=== PATIENT | female | born 1970 | race Caucasian/White ===

== ENCOUNTER 2016-10-23 21:33 | Inpatient (IN) ==
[2016-10-23 22:36] LABS: MANUAL DIFF NEEDED? NO
[2016-10-23 22:46] LABS: BASO% 0.4 % (0.0-0.8); EOS# 0.48 X1000 (0.0-0.7); EOS% 5.1 % (0.0-10.0); HEMATOCRIT 25.5 % (37.0-47.0); HEMOGLOBIN 8.5 g/dL (12.0-16.0); IMM GRAN# 0.06 X1000 (0.0-0.04); IMM GRAN% 0.6 % (0.0-0.5); LYMPH# 1.69 X1000 (1.2-3.4); LYMPH% 17.9 % (20.5-51.1); MCH 32.7 PG (27-31); MCHC 33.3 g/dL (33-37); MCV 98.1 FL (81-99); MONO% 8.5 % (1.7-9.3); MPV 10.3 FL (7.4-10.4); NEUT% 67.5 % (42.2-75.2); PLT 225 X1000 (130-400)
[2016-10-23 22:49] LABS: PROTIME 10.5 Seconds (9.2-11.7); PTT 27.1 Seconds (22.0-36.0)
[2016-10-23 23:05] LABS: ALBUMIN 3.2 g/dL (3.5-5.0); CALCIUM 8.5 mg/dL (8.8-10.2); MAGNESIUM 1.9 mg/dL (1.5-2.7); POTASSIUM 3.8 mmol/L (3.5-5.1); TOTAL BILIRUBIN 0.14 mg/dL (0.20-1.00)
--- NOTE | 2016-10-24 01:31 | PROVIDER DOCUMENTATION ---
This chart was entered by Ed Gonzalez Scribe, acting as scribe for Silverio Royal MD. HPI-Respiratory General - General Chief Complaint: Shortness of Breath Stated Complaint: sob Time Seen by Provider: 10/23/16 22:20 Source: patient, family Allergies/Adverse Reactions: Patient Allergies Allergy/AdvReac Type Severity Reaction Status Date / Time oxycodone HCl * [From Tylox] Allergy Intermediate HIVES Verified 10/23/16 22:22 baclofen Allergy Unknown Verified 10/23/16 22:22 hydralazine Allergy Unknown Verified 10/23/16 22:22 caffeine AdvReac Intermediate Unknown Verified 10/23/16 22:22 carvedilol [From Coreg] AdvReac Intermediate Unknown Verified 10/23/16 22:22 cyclobenzaprine HCl * AdvReac Intermediate Unknown Verified 10/23/16 22:22 [From Flexeril] sodium AdvReac Intermediate SWELLING Verified 10/23/16 22:22 atorvastatin calcium * AdvReac Unknown Verified 10/23/16 22:22 [From Lipitor] clindamycin AdvReac DIARRHEA Verified 10/23/16 22:22 Penicillins AdvReac Unknown Verified 10/23/16 22:22 Home Medications: Home Medication List Medication Instructions Recorded Confirmed Last Taken Type Amitriptyline [Elavil] 50 mg PO QHS 10/23/16 10/23/16 10/22/16 History Aspirin [Ecotrin] 81 mg PO DAILY 10/23/16 10/23/16 10/23/16 History Estradiol 1 mg PO DAILY 10/23/16 10/23/16 10/23/16 History Gabapentin 300 mg PO TID 10/23/16 10/23/16 10/23/16 History Hydrocodone/Acetaminophen [Davey 1 tab PO Q6H PRN 10/23/16 10/23/16 10/23/16 History 10-325 Tablet] Insulin Aspart [Novolog] 1 dose SUBQ DIRECTED 10/23/16 10/23/16 10/23/16 History Insulin Glargine [Lantus] 40 units SUBQ QHS 10/23/16 10/23/16 10/22/16 History Loratadine [Claritin] 10 mg PO DAILY 10/23/16 10/23/16 10/23/16 History Methocarbamol [Robaxin] 1,000 mg PO QHS 10/23/16 10/23/16 10/22/16 History Metoprolol [Lopressor] 50 mg PO BID 10/23/16 10/23/16 10/23/16 History Ondansetron HCl [Zofran] 4 mg PO PRN PRN 10/23/16 10/23/16 Unknown History Ropinirole HCl [Requip] 2 mg PO DAILY 10/23/16 10/23/16 10/23/16 History Sertraline [Zoloft] 50 mg PO DAILY 10/23/16 10/23/16 10/23/16 History Sevelamer Carbonate [Renvela] 800 mg PO DAILY 10/23/16 10/23/16 10/23/16 History - History of Present Illness-Resp Nature of Presenting Problem: Pt is a 46 yowf who presents to ER via EMS with CC of weakness and shortness of breath x3 weeks. Pt reports that she was seen 10 days ago by her PCP and was told that she had "a bunch of fluid on my lungs," but states that she was not put on any rx because they were waiting on the rest of pt's blood work to come back before starting any new rxs. Pt states that she became markedly weaker today. Pt also states that she had right sided chest pain that lasted for approximately 5 minutes earlier tonight. Pt also complains of blurry vision and dry mouth. Pt reports that she is on peritoneal dialysis. Quality of Pain: reports: aching Severity in ED: reports: moderate Onset/Duration: reports: this morning, other (x3 weeks) Timing: reports: still present Cough Quality/Degree: reports: moderate Associated Symptoms: reports: chest pain/soreness, cough, muscle/bodyaches, shortness of breath, short of breath, sore throat. denies: dizziness, earache, headache, lightheadedness, sinus pain, sweaty, wheezing Similar Symptoms Previously?: Yes Recently seen or treated by another doctor?: Yes Review of Systems - Adult - REVIEW OF SYSTEMS - ADULT Constitutional: reports: chills, fatique. denies: fever, night sweats, weight gain, weight loss Eyes: reports: blurred vision. denies: dry eyes, decreased vision, double vision, redness Ears, Nose, Mouth & Throat: reports: throat pain. denies: ear discharge, ear pain, epistaxis, nose pain, hoarseness, throat swelling Cardiovascular: reports: chest pain (right sided, resolved). denies: edema, irregular heart rate, palpitations, poor circulation, syncope Respiratory: reports: cough, shortness of breath. denies: chronic cough, dyspnea on exertion, excessive sputum production, hemoptysis, pleurisy, wheezing Gastrointestinal: reports: abdominal pain. denies: diarrhea, nausea, vomiting Genitourinary: reports: no symptoms reported Musculoskeletal: reports: no symptoms reported Integumentary: reports: no symptoms reported Neurological: reports: no symptoms reported Psychiatric: reports: no symptoms reported Endocrine: reports: no symptoms reported Hematologic/Lymphatic: reports: no symptoms reported Allergic/Immunologic: reports: no symptoms reported All Other Systems: Reviewed and Negative Past History - Adult - PAST MEDICAL HISTORY-ADULT Review of Records: reports: Nursing Assessment Review, Medications Reviewed Cardiovascular: reports: HTN, hyperlipidemia Respiratory: reports: other (sleep apnea) Musculoskeletal: reports: chronic pain (low back) Neurological: reports: other (diabetic neuropathy) Psychiatric: reports: depression Endocrine/Immune: reports: Diabetes, thyroid disorder (hypothyroid) - PRIOR SURGERIES/PROCEDURES Surgical/Procedure History: reports: hysterectomy, other (toe nail removal; toe amputation) - PRIOR HOSPITALIZATIONS Prior Hospitalizations: reports: for other non-related - IMMUNIZATION STATUS Childhood Immunizations: See Nurse Assessment Flu Vaccine: See Nurse Assessment - FAMILY HISTORY Family History: reviewed, not pertinent Physical Exam-General - PHYSICAL EXAM-ADULT Initial Vital Signs Reviewed: Yes - CONSTITUTIONAL General Appearance: appears well, alert, mild distress, obese - EYES Eyes: PERRL/EOMI, pink conjunctivae - HEAD, EARS, NOSE, MOUTH & THROAT HENMT: moist mucous membranes, pharynx normal - RESPIRATORY Respiratory: chest non-tender, lungs clear, normal breath sounds, no pleuratic chest pain, no respiratory distress, no accessory muscle use. negative: respiratory distress, decreased breath sounds, accessory muscle use, wheezing - CARDIOVASCULAR Cardiovascular: normal peripheral pulses, regular rate, rhythm. negative: bradycardia, tachycardia, irregularly irregular - GASTROINTESTINAL (ABDOMEN) Abdominal Exam: normal bowel sounds, non tender, soft, no organomegaly, no pulsatile mass. negative: distended, guarding, tenderness - MUSCULOSKELETAL Extremity: swelling (4+ pitting edema). negative: deformity, erythema, inflammation Progress - PLAN OF CARE/RESULTS Progress/Plan/Lab Results: Vital Signs - 8 hr 10/23/16 21:43 Temperature 98.0 F Pulse Rate 111 H Respiratory Rate 18 Blood Pressure 116/69 O2 Sat by Pulse Oximetry 92 L Laboratory Results - last 24 hr 10/23/16 10/23/16 10/23/16 22:00 22:00 22:00 WBC 9.44 RBC 2.60 L Hgb 8.5 L Hct 25.5 L MCV 98.1 MCH 32.7 H MCHC 33.3 RDW Std Deviation 19.8 H Plt Count 225 MPV 10.3 Immature Gran % (Auto) 0.6 H Neut % (Auto) 67.5 Lymph % (Auto) 17.9 L [place] % (Auto) 8.5 Eos % (Auto) 5.1 Baso % (Auto) 0.4 Immature Gran # (Auto) 0.06 H Neut # (Auto) 6.37 Lymph # (Auto) 1.69 [place] # (Auto) 0.80 H Eos # (Auto) 0.48 Baso # (Auto) 0.04 PT INR PTT (Actin FS) D-Dimer 0.14 Sodium 133 L Potassium 3.8 Chloride 89 L Carbon Dioxide 22 L Anion Gap 22 BUN 50 H Creatinine 7.4 H Estimated GFR/1.73 m2 6 BUN/Creatinine Ratio 7 Glucose 223 H Calculated Osmolality 287 Calcium 8.5 L Magnesium 1.9 Total Bilirubin 0.14 L AST 31 H ALT 47 H Alkaline Phosphatase 160 H Creatine Kinase 126 Troponin T [id number] Pept Total Protein 7.0 Albumin 3.2 L Globulin 3.8 Albumin/Globulin Ratio 0.8 10/23/16 10/23/16 10/23/16 22:00 22:00 22:00 WBC RBC Hgb Hct MCV MCH MCHC RDW Std Deviation Plt Count MPV Immature Gran % (Auto) Neut % (Auto) Lymph % (Auto) [place] % (Auto) Eos % (Auto) Baso % (Auto) Immature Gran # (Auto) Neut # (Auto) Lymph # (Auto) [place] # (Auto) Eos # (Auto) Baso # (Auto) PT 10.5 INR 1.00 PTT (Actin FS) 27.1 D-Dimer Sodium Potassium Chloride Carbon Dioxide Anion Gap BUN Creatinine Estimated GFR/1.73 m2 BUN/Creatinine Ratio Glucose Calculated Osmolality Calcium Magnesium Total Bilirubin AST ALT Alkaline Phosphatase Creatine Kinase Troponin T 0.148 H [id number] Pept 1559 H Total Protein Albumin Globulin Albumin/Globulin Ratio Orders Category Date Time Status Cardiac Monitoring DIRECTED Care 10/23/16 22:25 Active Oxygen Therapy- ED Nursing DIRECTED Care 10/23/16 22:25 Active Saline Loc NOW Care 10/23/16 22:25 Active CHEST-2 VIEWS [RAD] Stat Exams 10/23/16 22:25 Taken CBC WITH ELECTRONIC DIFF [HEME] Stat Lab 10/23/16 22:00 Completed CK PROFILE [SP CHEM] Stat Lab 10/23/16 22:00 Completed COMPREHENSIVE METABOLIC PANEL [CHEM] Stat Lab 10/23/16 22:00 Completed D-DIMER [CHEM] Stat Lab 10/23/16 22:00 Completed MAGNESIUM [CHEM] Stat Lab 10/23/16 22:00 Completed PRO B-NATRIURETIC PEPTIDE Stat Lab 10/23/16 22:00 Completed PROTIME WITH INR [COAG] Stat Lab 10/23/16 22:00 Completed PTT [COAG] Stat Lab 10/23/16 22:00 Completed TROPONIN T Stat Lab 10/23/16 22:00 Completed EKG [EKG] Stat Ther 10/23/16 22:25 Ordered Result Diagrams: 10/23/16 22:00 10/23/16 22:00 - EKG 1 Time of EKG reading by physician:: 22:32 EKG Read and Signed by:: Silverio Royal EKG Interpretation (*Must complete 3 of following elements*): Abnormal (Low voltage QRS; Cannot rule out Anterior infarct, age undetermined) Rate: 101 Rhythm: Sinus tachycardia 2 Time of EKG reading by physician:: 21:44 EKG Read and Signed by:: Silverio Royal EKG Interpretation (*Must complete 3 of following elements*): Abnormal (Low voltage QRS; Cannot rule out Anterior infarct, age undetermined) Rate: 102 Rhythm: Accelerated junctional rhythm with occasional PVC - XRAY 1 XRAY: Bilateral XRAY Study: Chest Impression: See EMR Report XRAY Interpretation: Cardiomegaly, elevated diaphragms - Dr. Royal - CONSULTS/PCP/HOSPITALIST Notification #1 *Consult/PCP/Hospitalist*: Dr. Coreas (Hospitalist) Time Discussed: 00:50 Consult Disposition: Will see in ED, Admit Departure - Departure Date of Disposition Decision: 10/24/16 Time of Disposition Decision: 01:29 DIAGNOSIS: Dyspnea Qualifiers: Dyspnea type: dyspnea on exertion Qualified Code(s): R06.09 - Other forms of dyspnea Disposition: ADMITTED INPATIENT 09 Certified Medical Emergency: Emergent Condition: Good Referrals and Follow-Ups: Shanna Laureano CRNP [Primary Care Provider] - - Critical Care Note This patient required my direct & personal management of CC.: No This chart was documented by the indicated scribe, (Ed Gonzalez Scribe) and accurately reflects the services I performed and decisions made by me, Silverio Royal MD, as attested by the provider's signature.
[2016-10-24 02:02] LABS: HEMOGLOBIN A1C 6.5 % (4.8-6.0)
[2016-10-24] MEDS ORDERED: ZOFRAN PO PRN (03:24)
[2016-10-24] MEDS ORDERED: ZOFRAN IV PRN (03:24)
[2016-10-24] MEDS: NEURONTIN PO SCH ×4 (04:44→20:10)
[2016-10-24] MEDS: HEPARIN SUBQ SCH ×3 (04:44→20:11)
[2016-10-24] MEDS: NORCO-10 PO PRN ×3 (04:44→20:10)
--- NOTE | 2016-10-24 05:17 | HISTORY AND PHYSICAL ---
PRIMARY CARE PROVIDER: CALI Espinal IT TRAINEE: Dany Fofana MD CHIEF COMPLAINT: Shortness of breath. HISTORY OF PRESENT ILLNESS: Ms. Nelson is a 46-year-old female with a history of end- stage renal disease, who receives peritoneal dialysis. She is morbidly obese and has critically low lung volumes. She wears oxygen at home 2.5 L that she can titrate up during the day for increased shortness of breath. She has other comorbidities such as hypertension , diabetes mellitus, type 2, now insulin dependent, diabetic neuropathy and hypothyroidism , as well as anemia of chronic disease. She comes in tonight with complaint of shortness of breath and right-sided chest pain, which has just started in the hospital. The patient is actually saturating 96% on room air when she wears home oxygen during interview. She is able to answer all questions appropriately. A chest x-ray was obtained which did show a critically low lung volumes similar to previous exams. The patient does continue to complain of shortness of breath with exertion. It was discussed with the family. They stated that she would be unable to go home like this. At any rate, the patient will be admitted to the medical floor in observation status. PAST MEDICAL HISTORY: See HPI. PREVIOUS SURGICAL HISTORY: 1. Left toe amputation secondary to osteomyelitis. 2. Hysterectomy. 3. Peritoneal dialysis catheter. SOCIAL HISTORY: Denies alcohol, tobacco or illicit drug use. FAMILY HISTORY: Mother from myocardial infarction. Had diabetes mellitus. Brother and sister both have coronary artery disease and diabetes. Father has diabetes mellitus, another brother had a CVA. ALLERGIES: Acetaminophen, morphine, oxycodone, baclofen, hydralazine, Precose, caffeine, carvedilol, Flexeril, ibuprofen, naproxen, Avandia, sodium, Lipitor, clindamycin , Lyrica. HOME MEDICATIONS: 1. Claritin 10 mg p.o. daily. 2. Cadogan 10 mg 1 p.o. q.6 p.r.n. 3. Metoprolol 50 mg p.o. b.i.d. 4. Lantus 40 units subcutaneously at bedtime. 5. Insulin aspart sliding scale. 6. Zofran 4 mg p.o. p.r.n. nausea. 7. Elavil 50 mg p.o. at bedtime. 8. Requip 2 mg p.o. daily. 9. Robaxin 1000 mg p.o. at bedtime. 10. Zoloft 50 mg p.o. daily. 11. Estradiol 1 mg p.o. daily. 12. Aspirin 81 mg p.o. daily. 13. Renvela 800 mg p.o. daily. 14. Neurontin 300 mg p.o. t.i.d. REVIEW OF SYSTEMS: Fourteen point review of systems conducted with the patient. Pertinent positives listed above in the HPI. All other systems reviewed and found to be negative. PHYSICAL EXAMINATION: VITAL SIGNS: Temperature 98 degrees, pulse 99, respirations 18-22, blood pressure 116/69, oxygen saturation 96% on room air. GENERAL: Morbidly obese, 46-year-old, female, lying in the ER stretcher. Alert and oriented x3. Answers all questions appropriately. HEENT: Head is atraumatic, normocephalic. Pupils equal, round, reactive to light. Extraocular eye movement intact. Sclerae is anicteric. Conjunctivae is pale. Oral mucosa is moist. NECK: Short and thick. Difficult to assess JVD related to poor body habitus. No carotid bruit on auscultation. Trachea is midline. CARDIAC: S1-S2 appreciated. Regular rhythm. No murmurs, gallops, rubs. LUNGS: Decreased bilaterally. Poor inspiratory effort. Otherwise, clear to auscultation. No rhonchi, wheezes or rales. ABDOMEN: Protuberant, soft, nondistended, nontender. Bowel sounds present in all 4 quadrants. Peritoneal dialysis noted. EXTREMITIES: Two plus bilateral lower extremity pitting edema. One plus pedal pulses bilaterally. NEUROLOGICAL: Alert and oriented x3. Cranial nerves 2-12 are grossly intact. SKIN: Warm, dry and intact. No acute lesions or rash. DIAGNOSTIC DATA: Chest x-ray shows critically low lung volumes. CT without contrast of the thorax is pending. LABORATORY DATA: WBC 9.44, hemoglobin 8.5, hematocrit 25.5, platelet count 225, 000. Coagulation studies within normal limits. D-dimer 0.14. Sodium 133, potassium 3.8, chloride 89, carbon dioxide 22, BUN 50 creatinine 7.4. Glucose 223, AST 31, ALT 47. Troponin 0.148. ASSESSMENT AND PLAN: 1. Chest pain, rule out acute myocardial infarction. Patient does have a mildly elevated troponin which is lower than her previous admission. We will trend. Likely chronically elevated related to her end-stage renal disease. 2. End-stage renal disease, with peritoneal dialysis. We will consult Dr. Fofana. The has had steadily increasing shortness of breath. It is possible that the patient may benefit from hemodialysis. So the peritoneal dialysis will not be in her abdominal cavity. 3. Anemia of chronic disease. The patient is at baseline hemoglobin and hematocrit. We will recheck. 4. Diabetes mellitus type 2 with hyperglycemia. Check hemoglobin A1c. Continue long-acting insulin and place on sliding scale. 5. Hypertension. Continue home medications. 6. Dyspnea on exertion. As noted above, the patient has a critically low lung volumes. Went over with the patient weight reduction measures. She is on home O2. Further recommendations per patient clinical course. Dictated by CALI Isabel for Randa Coreas MD Seen and examined patient with [employer]; discussed case with [employer]. cc: CALI Isabel MD Anna M. Dumas, CRNP Reginald D. Gladish, MD [facility]ANGONE HEALTH SYSTEMIveth
[2016-10-24] MEDS: HUMALOG SUBQ SCH ×4 (07:28→20:18)
[2016-10-24] MEDS: LOPRESSOR PO SCH ×2 (08:34→20:10)
[2016-10-24] MEDS: RENAGEL PO SCH (08:34)
[2016-10-24] MEDS: ZOLOFT PO SCH (08:34)
[2016-10-24] MEDS: ASPIRIN EC PO SCH (08:34)
[2016-10-24] MEDS: REQUIP PO SCH (08:34)
[2016-10-24] MEDS: CLARITIN PO SCH (08:34)
--- NOTE | 2016-10-24 08:58 | Diag Imaging Result Doc PS360 ---
CT THORAX W/O CONTRAST - 10/24/2016 INDICATION: eval lungs low lung volume. pneumonia? TECHNIQUE: A CT dose reduction protocol was used. COMPARISON: Previous chest x-rays FINDINGS: Lung volumes are severely low. The abdomen is is extremely obese. There is severe fatty change of the liver. There is trace ascites. There is calcified vascular disease of the renal and mesenteric vasculature. There is also calcified vascular disease of the coronary arteries. No mass or adenopathy. No significant infiltrates. IMPRESSION: 1. Obesity hypoventilation. 2. Severe fatty liver. 3. Trace ascites. 4. Vascular disease. Electronically signed by Fercho Gary 10/24/2016 8:55 AM
[2016-10-24] MEDS ORDERED: ESTRACE PO SCH (09:00)
--- NOTE | 2016-10-24 09:29 | Diag Imaging Result Doc PS360 ---
CHEST-2 VIEWS - 10/23/2016 INDICATION: sob TECHNIQUE: COMPARISON: 07/16/2016 FINDINGS: Lung volumes are critically low, even lower than previously. No obvious infiltrates. IMPRESSION: Critically low lung volumes. Electronically signed by Fercho Gary 10/24/2016 9:27 AM
[2016-10-24 12:08] LABS: CK INDEX 2.8 (0.0-2.5); CK-MB 13.1 ng/mL (0.0-5.0)
[2016-10-24] MEDS ORDERED: EPOGEN SUBQ ONE (12:43)
--- NOTE | 2016-10-24 13:45 | CONSULTATION ---
DATE OF CONSULTATION: 10/24/2016 REASON FOR CONSULTATION: Peritoneal dialysis and evaluation and treatment. HISTORY OF PRESENT ILLNESS: Ms. Nelson is a 46-year-old white female with end-stage kidney disease secondary to diabetes. She also has morbid obesity, as well as obesity hypoventilation syndrome. She wears oxygen at home. She also has hypertension, chronic pain, chronic lower extremity swelling. She presented to the hospital with chest discomfort and shortness of breath. O2 saturations were 96% during her initial evaluation and her CT did not show pulmonary edema. She was admitted to the floor for evaluation of these problems. PAST MEDICAL HISTORY: As above. HOME MEDICATIONS: Reviewed as listed. ALLERGIES: Multiple again reviewed as listed in the HPI. FAMILY HISTORY: Positive for coronary disease, diabetes and cerebrovascular disease. SOCIAL HISTORY: She is and does not use alcohol or tobacco. PHYSICAL EXAMINATION: Vital Signs: Blood pressure 113/66, heart rate 96, respirations 20, afebrile. General: She is a morbidly obese woman lying in bed on her left side. No distress. Skin: Warm and dry. Conjunctivae are pink. Oropharynx is moist. Neck: Neck veins are not visible. Heart: Distant. Lungs: Distant. Abdomen: Soft, nontender. Bowel sounds are present. Extremities: Have 2+ edema. Limited below the knee. No clubbing or cyanosis. LABORATORY DATA: Reviewed. IMPRESSION/PLAN: End-stage kidney disease. We will continue her peritoneal dialysis but we will extend her treatment and increase her Dianeal concentration to affect more volume removal. Otherwise I support the evaluation that is in process. Her electrolytes are acceptable and her anemia is below target. We will recheck her iron studies and dose with erythropoietin today. cc: Dany Fofana MD
[2016-10-24] MEDS ORDERED: INSULIN PEN NEEDLES ONE (15:50)
--- NOTE | 2016-10-24 15:50 | CONSULTATION ---
DATE OF CONSULTATION: 10/24/2016 REQUESTING PHYSICIAN: Hospitalist Service. REASON FOR CONSULTATION: Patient presenting with weakness, atypical chest discomfort, and abnormal troponin, suspect myocardial ischemia. HISTORY OF PRESENT ILLNESS: Ms. Nelson is a pleasant 46-year-old female who presented to the Emergency Room last night at about 10:30 p.m. or so with complaints of several days of feeling increasingly weak. This has been going on for the past 3 weeks. She feels dizzy, lightheaded, and unsteady on her feet. She has been experiencing tremors in her hands and legs and falling frequently. She has had a tightness type of discomfort in the legs. Upon presentation she also reported having some discomfort in the right side of her chest. They did a chest x-ray initially that shows critically low lung volumes. They did a CT scan of the chest without contrast that shows obesity hypoventilation, severe fatty liver, trace ascites, and vascular disease in the coronary and also in the other mesenteric vessels. They did an EKG on her that seems to show junctional rhythm. I think it is just sinus rhythm with a little of tremor artifact. Rate is 102. Low voltage is noted. PVCs are noted. The patient had a troponin level that was done at 10:00 p.m. and it was 0.148 and subsequently at 4:00 a.m. it was 0.147, and then at 11:00 a.m. today it was 0.144. CPK initially was 126, then 147, and the last one was 465 with a positive MB fraction. Index is 2.8%. I am seeing the patient at 12:15 p.m. and she is sitting upright and eating her lunch. She is not having any chest discomfort. She denies having any true angina pectoris. She is breathing comfortably. The patient also tells me that the night prior to admission she had what she describes as a hallucination, seeing a nephew in the room, and doing some automatic movements without realizing that she was doing it. At any rate, at this time patient is in the hospital and she seems to be free of any pain or distress. PAST MEDICAL HISTORY: Her past history is extensive. First of all, she is morbidly obese. She has diabetes mellitus type 2 although lately she is requiring insulin. She has developed progressive renal insufficiency and eventually she was advised to pursue dialysis. She choose to do peritoneal dialysis which is being monitored by the services of Dr. Fofana. She has been admitted to the hospital on at least 2 occasions because of peritonitis. She has had previous osteomyelitis of a toe requiring amputation. She has had a hysterectomy in the past. She does have hypertension. She does have chronic back pains and she has had previous spine surgery. I believe that happened in 2014. She has some chronic sciatic pain on the right side. She has been diagnosed with sleep apnea syndrome. Unfortunately, her CPAP mask has broken and she is not using it at the present moment. HOME MEDICATIONS: Her home medications include Renvela 800 mg daily, Zoloft 50 mg daily, Requip 2 mg daily, Zofran 4 mg as needed, metoprolol 50 mg twice a day, methocarbamol 1, 000 mg once a day, Claritin 10 mg daily, insulin Lantus 40 units at bedtime, NovoLog one dose as directed, hydrocodone acetaminophen every 6 hours, gabapentin 300 mg three times a day, estradiol 1 mg daily, aspirin 81 mg daily, and amitriptyline 50 mg at bedtime. ALLERGIES: She is allergic to oxycodone, baclofen, hydralazine, caffeine, carvedilol, atorvastatin, clindamycin, and penicillin. REVIEW OF SYSTEMS: The patient has impaired mobility. She is massively obese. She has chronic leg discomfort. She has a tendency to fall. She walks with a walker. She has sleep apnea syndrome which is not being treated. No other significant positives beyond what I have said. SOCIAL HISTORY: She is not . She lives with her brother. She is not a smoker. She does not use any illicit drugs. PHYSICAL EXAMINATION: VITAL SIGNS: Blood pressure today is 113/66, temperature 98.2, pulse 93, and respirations 20. GENERAL: She is awake, alert, obese, and in no distress. HEENT: Unremarkable. RESPIRATORY: The chest shows diminished breath sounds over the bases. CARDIOVASCULAR: Heart sounds are distant, regular. No gallop or murmur. GASTROINTESTINAL: The abdomen is massively obese. EXTREMITIES: The extremities show brawny edema, 2 to 3+ in both legs. Pulses are diminished distally. There is evidence of amputation of the fourth digit of her left foot. No rash is noted. NEUROLOGICAL: She has numbness in her legs. She moves the upper extremities well although she has some tremor, almost asterixis-like. Cranial nerves are normal. Speech is clear. Mentation appears to be normal. ADDITIONAL LAB WORK: Sodium is 133, potassium 3.8, BUN 50, and creatinine 7.4. Her liver test reveals an AST of 31 and ALT of 47. Bilirubin is 0.14. Alkaline phosphatase is 160. IMPRESSION: 1. Patient presenting with increasing weakness, abnormal EKG, and elevated troponin. Brief episode of chest discomfort, very atypical, upon presentation. This could represent right ventricular strain from fluid overload or subendocardial ischemia. 2. Morbid obesity. 3. Chronic renal failure on peritoneal dialysis. 4. History of sleep apnea syndrome. 5. History of chronic back pain. 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 RECOMMENDATIONS: At this point in time we will trend cardiac enzymes. We will do follow up EKGs. I will get an echocardiogram. We will consider a myocardial perfusion study. I will discuss with Nephrology whether or not this patient is adequately dialyzed by the current method. I believe she is fluid overloaded. Further advice will be forthcoming. Of note, her proBNP is only 1,559 which is considerably lower than we typically see in patient's with renal failure and fluid overload. cc: Warren Lopez MD [facility]
[2016-10-24] MEDS: ELAVIL PO SCH (20:10)
[2016-10-24] MEDS: ROBAXIN PO SCH (20:10)
[2016-10-24] MEDS: LANTUS SUBQ SCH (20:24)
[2016-10-24 22:42] LABS: CK INDEX 2.2 (0.0-2.5); CK-MB 13.21 ng/mL (0.0-5.0)
[2016-10-25] MEDS: HEPARIN SUBQ SCH ×3 (04:41→21:32)
[2016-10-25] MEDS: HUMALOG SUBQ SCH ×4 (06:34→21:33)
[2016-10-25 07:09] LABS: IRON SATURATION 40 %; TIBC 163 ug/dL; TOTAL IRON 65 ug/dL (49-151); UNBOUND IRON 98 ug/dL (112-346)
[2016-10-25 07:31] LABS: FERRITIN 1539 ng/mL (13-150)
[2016-10-25 08:48] LABS: CK INDEX 1.6 (0.0-2.5); CK-MB 15.19 ng/mL (0.0-5.0)
[2016-10-25] MEDS: REQUIP PO SCH (11:42)
[2016-10-25] MEDS: LOPRESSOR PO SCH ×2 (11:43→21:31)
[2016-10-25] MEDS: CLARITIN PO SCH (11:43)
[2016-10-25] MEDS: RENAGEL PO SCH (11:43)
[2016-10-25] MEDS: ASPIRIN EC PO SCH (11:43)
[2016-10-25] MEDS: NEURONTIN PO SCH ×3 (11:43→17:45)
[2016-10-25] MEDS: ZOLOFT PO SCH (11:43)
--- NOTE | 2016-10-25 11:47 | PROGRESS NOTE ---
DATE: 10/25/2016 CHIEF COMPLAINT: Weakness, swelling, malaise and atypical chest pain. SUBJECTIVE: Ms. Nelson is resting today. She does not have any complaints. OBJECTIVE: Blood pressure is 112/66, temperature 98.8, pulse 83, respirations 13. She is resting. HEENT is unremarkable. Chest: Clear to auscultation and percussion. Heart sounds are regular and rhythmic. No gallop or murmur. Abdomen: Obese, distended. Extremities showed brawny edema. Neurologic: She follows commands and moves all 4 extremities. DIAGNOSTIC DATA: CPK has gone up; however, her CK index is going down. Troponin is slightly declining at 0.137. Her echocardiogram has been done this morning, and results are pending. A 12- lead EKG shows sinus rhythm without any acute ischemic changes, that is done today at 6:44 in the morning. IMPRESSION: 1. The patient presented with nonspecific symptoms of weakness. She had very atypical chest pain. She had a normal EKG with slight elevation of cardiac enzymes. Probably this does not indicate myocardial ischemia; however, it cannot be entirely ruled out. An echocardiogram has been done and is pending. 2. Morbid obesity. 3. Chronic renal failure on peritoneal dialysis, question of insufficient fluid removal on her. 4. History of sleep apnea syndrome. 5. History of chronic back pain. 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 RECOMMENDATIONS: We will review echocardiogram and furnish additional advice. We will discuss with Dr. Fofana further intervention. cc: Warren Lopez MD
--- NOTE | 2016-10-25 12:48 | ECHO REPORT ---
ORDER DATE: 10/25/2016 INTERPRETING PHYSICIAN: Dr. Lopez REQUESTING PHYSICIAN: CLINICAL INDICATIONS: This is a 46-year-old female with chest pain, morbid obesity, elevated cardiac enzymes, end stage renal disease on peritoneal dialysis. This is an echocardiogram with contrast. Contrast was deemed necessary because the patient's windows were very poor. M-MODE MEASUREMENTS: Right ventricle: 3.6 cm. Left ventricle end diastole: 4.7 cm. Left ventricle end systole: 2.7 cm. Posterior wall: 1.1 cm. Interventricular septum: 1.2 cm. Left atrium: 4.5 cm. Aortic root: 2.6 cm. SUMMARY OF 2-DIMENSIONAL IMAGIN. Left ventricular function is normal. Ejection fraction is estimated in the order of 65% to 70%. No definite wall motion abnormality is noted. 2. The right ventricle appears to be mild to moderately enlarged. 3. The aortic valve shows sclerosis of the cusp without stenosis or regurgitation. 4. Pulmonic valve looks grossly normal. Color flow mapping is unremarkable. 5. Tricuspid valve shows mild degree of regurgitation. 6. The inferior vena cava was not visualized well. 7. The pulmonary pressure is somewhere in the range of 43 to 48 mmHg. 8. Mitral valve looks normal. Color flow mapping indicates mild degree of regurgitation. 9. Pulse wave Doppler of mitral inflow showed relatively normal E/A ratio. 10.Tissue Doppler of septal and lateral mitral annulus averages 11 cm. 11.There is no diastolic dysfunction. 12.There is no pericardial effusion, mass or thrombus. 13.Pulmonary venous flow appears to be normal. 14.Normal systolic/diastolic ratio. CONCLUSIONS: 1. Well preserved left ventricular systolic function. Ejection fraction is estimated at 65% with no wall motion abnormality. Definity was used to enhance the endocardial borders, and actually the study was quite good with Definity. 2. Moderately enlarged right ventricle. 3. Mild to moderate pulmonary hypertension in the range of 43 to 48 mmHg. 4. No evidence of any significant valvular abnormality. 5. No diastolic dysfunction. Clinical correlation is recommended. cc: Warren Lopez MD
[2016-10-25] MEDS: NORCO-10 PO PRN (13:13)
[2016-10-25] MEDS: PRILOSEC PO SCH ×2 (16:10→21:32)
--- NOTE | 2016-10-25 16:58 | Diag Imaging Result Doc PS360 ---
ABDOMEN FLAT/UPRIGHT - 10/25/2016 INDICATION: pain TECHNIQUE: Two views COMPARISON: None FINDINGS: There is catheter tubing in the pelvis. There is moderate constipation. No bowel obstruction or free air. IMPRESSION: Moderate constipation. Electronically signed by Fercho Gary 10/25/2016 4:56 PM
--- NOTE | 2016-10-25 18:31 | PROGRESS NOTE ---
DATE: 10/25/2016 SUBJECTIVE: The patient has no focal complaints. OBJECTIVE: Vital Signs: Blood pressure 112/66, heart rate of 83, respiratory rate 13, temperature 98 degrees, 100% on 3 L. Cardiovascular: Regular rate and rhythm. Pulmonary: Bilateral breath sounds. Clear to auscultation. Gastrointestinal: Soft, nontender, nondistended. Bowel sounds are positive. LABORATORY DATA: Troponin 0.13. CK-MBs have been elevated 15, but the CK has been very, very high. Rest of electrolytes looked good. PROBLEM LIST: 1. Chest pain, atypical. I get a sense more this is GI related. She is complaining of reflux. Pain on the right side, which is chronic for her. Her chest pain has actually gotten better. That being said, she does have hypertension, diabetes she is obese, she has got chronic end- stage renal. Echo, per Dr. Warren Lopez looked good. No major pathology. No wall motion abnormality. I am not sure if were going to pursue noninvasive imaging or what else I am going to do. I am going to touch base with him and we will decide about that. 2. Diabetes. Appears to be controlled. Continue regular medications. 3. Gastroenterology will initiate Prilosec and follow clinically. DISPOSITION: Pending her cardiac workup. cc: Alexei Welch MD
[2016-10-25] MEDS: ROBAXIN PO SCH (21:31)
[2016-10-25] MEDS: ELAVIL PO SCH (21:31)
[2016-10-25] MEDS: LANTUS SUBQ SCH (21:32)
[2016-10-25 22:39] LABS: CK INDEX 1.1 (0.0-2.5); CK-MB 15.28 ng/mL (0.0-5.0)
--- NOTE | 2016-10-26 05:31 | EKG Report ---
Test Performed on : 10/25/2016 06:44:31 AM Test Reason : AK/Renal failure Blood Pressure : / mmHG Vent. Rate : 088 BPM Atrial Rate : 088 BPM P-R Int : 154 ms QRS Dur : 074 ms QT Int : 356 ms P-R-T Axes : 024 008 012 degrees QTc Int : 430 ms Normal sinus rhythm. Low voltage QRS Possible Anterolateral infarct (cited on or before 16-JUL-2016) Abnormal ECG When compared with ECG of 23-OCT-2016 21:46, (Unconfirmed) Questionable change in initial forces of Lateral leads Confirmed by Jose MARCH, Elvin Bills ([id number]) on 10/27/2016 2:15:18 PM
[2016-10-26] MEDS: HUMALOG SUBQ SCH ×2 (06:18→11:48)
[2016-10-26] MEDS: PRILOSEC PO SCH (06:18)
[2016-10-26] MEDS: HEPARIN SUBQ SCH ×2 (06:18→12:54)
[2016-10-26] MEDS: NORCO-10 PO PRN ×2 (06:18→12:57)
--- NOTE | 2016-10-26 07:35 | EKG Report ---
Test Performed on : 10/26/2016 06:35:58 AM Test Reason : non ST PR Blood Pressure : / mmHG Vent. Rate : 102 BPM Atrial Rate : 102 BPM P-R Int : 174 ms QRS Dur : 074 ms QT Int : 336 ms P-R-T Axes : 028 -06 009 degrees QTc Int : 437 ms Sinus tachycardia. Low voltage QRS Inferior infarct , age undetermined Possible Anterolateral infarct (cited on or before 16-JUL-2016) Abnormal ECG When compared with ECG of 25-OCT-2016 06:44, (Unconfirmed) Inferior infarct is now present Questionable change in initial forces of Lateral leads Confirmed by Jose MARCH, Elvin Bills ([id number]) on 10/27/2016 2:15:58 PM
[2016-10-26 07:36] LABS: HEMATOCRIT 24.4 % (37.0-47.0); MCH 33.1 PG (27-31); MCHC 32.8 g/dL (33-37); MCV 100.8 FL (81-99); MPV 10.7 FL (7.4-10.4); RBC 2.42 XMIL (4.2-5.4)
--- NOTE | 2016-10-26 07:42 | EKG Report ---
Test Performed on : 10/23/2016 9:46:16 PM Test Reason : Chest Pain Blood Pressure : / mmHG Vent. Rate : 101 BPM Atrial Rate : 101 BPM P-R Int : 150 ms QRS Dur : 068 ms QT Int : 360 ms P-R-T Axes : 005 003 -06 degrees QTc Int : 466 ms Sinus tachycardia. Low voltage QRS Cannot rule out Anterior infarct (cited on or before 16-JUL-2016) Abnormal ECG When compared with ECG of 23-OCT-2016 21:44, (Unconfirmed) Sinus rhythm. has replaced Junctional rhythm. Unconfirmed Result
[2016-10-26 08:02] LABS: ALBUMIN 3.2 g/dL (3.5-5.0); CALCIUM 8.5 mg/dL (8.8-10.2); POTASSIUM 4.2 mmol/L (3.5-5.1)
--- NOTE | 2016-10-26 08:40 | PROGRESS NOTE ---
DATE: 10/26/2016 CHIEF COMPLAINT: Weakness, right-sided chest pain. SUBJECTIVE: Ms. Nelson had a good night. She has not experienced any more chest discomfort. Breathing is better. She is still having issues with regurgitation. She denies having any dyspnea. OBJECTIVE: Blood pressure is 130/61, temperature 97.4, pulse 100, respirations 18. She is awake, alert, sitting upright, in no distress. HEENT is unremarkable. Chest is clear to auscultation and percussion. Heart sounds are regular and rhythmic, slightly tachycardic. Abdomen: Quite distended, obese. Extremities showed brawny edema bilaterally. Neurologic: Follows commands, moves all 4 extremities. DIAGNOSTIC DATA: Blood work showed sodium 129, potassium 4.2, BUN is 50, creatinine 7.1. Hemoglobin is 8.0, hematocrit 24.4. IMPRESSION: 1. The patient presented with increasing weakness, possibly fluid overloaded. 2. Atypical chest pain, borderline elevation of troponin levels. 3. Morbid obesity. 4. Diabetes mellitus type 2. RECOMMENDATIONS: The patient's troponin is gradually going down to 0.127, and her CK index is 1.1%; however, her CPK is 1407. That would suggest some sort of musculoskeletal injury. Her EKG today shows sinus rhythm with questionable inferior scar. Her echocardiogram showed normal left ventricular function. We used Definity for that study. At this point in time, the patient does not seem to have any ongoing cardiac complaint. The troponin level elevation is suspected to be spurious. I would try to optimize her dialysis procedure and probably correct her anemia if possible. At this point in time, I will defer that to the Nephrology Service and the General Medicine Service. We will stand by, and please call us if further assistance is required in this particular case. cc: Warren Lopez MD
[2016-10-26] MEDS: ASPIRIN EC PO SCH (08:44)
[2016-10-26] MEDS: CLARITIN PO SCH (08:44)
[2016-10-26] MEDS: REQUIP PO SCH (08:44)
[2016-10-26] MEDS: LOPRESSOR PO SCH (08:44)
[2016-10-26] MEDS: ZOLOFT PO SCH (08:44)
[2016-10-26] MEDS: RENAGEL PO SCH (08:44)
--- NOTE | 2016-10-26 10:02 | PROGRESS NOTE ---
DATE: 10/26/2016 TIME SEEN: 07:15. SUBJECTIVE: Ms. Nelson is sitting on the side of the bed. She denies any chest pain. No increased work of breathing. She states that she does have some jumpy motions and movements to her arms and extremities. Lower, she states that it is worse than restless legs. OBJECTIVE: Her most recent vital signs, temperature 97.4, blood pressure 130/61, heart rate 100, respirations are 14. She is on 3 L nasal cannula. Last recorded saturation is 95%. She has had 600 in. She has had 0 recorded out. LABS: Sodium 129, potassium 4.2, chloride is 86, CO2 of 23, BUN 50, creatinine 7.1, glucose 177. Her anion gap is 20, calcium 8.5, phosphorus 4.2, albumin 3.2. White count 8.12, hemoglobin 8, hematocrit 24.4, platelet count 200. PHYSICAL EXAMINATION: General: This is a 46-year-old white female. She appears in no acute distress. Skin: Warm and dry. HEENT: Normocephalic, atraumatic. Conjunctiva is pale. She has CINDY. Mucous membranes moist. Neck: Supple. Trachea midline. No JVD. Cardiovascular: She is regular rate and rhythm. She is without murmur or gallop. Lungs: Clear to auscultation anteriorly. Equal excursion. She is on O2. Abdomen: Large, round, soft, nontender. Positive bowel sounds. She has a PD catheter to the right lower to mid quadrant. It does have some drainage noted to the dressing and to her underwear. We will have this evaluated and assessed and dressing changes made. No complaints of abdominal tenderness at this exit site. Unable to express any drainage from this area. Genitourinary: Patient has minimal void with dialysis assist. Extremities: She continues with 1 to 2+ lower extremity edema. No clubbing or cyanosis. She does have some chronic venous stasis present. Neurological: She is alert and oriented x3. She does have some trembling noted to both upper and lower extremities with positive asterixis. ASSESSMENT AND PLAN: 1. End-stage renal disease. Patient continues with her routine peritoneal dialysis treatments. She has had an increase in her red bags secondary to her fluid volume overload. Otherwise, we will support the process as mentioned per her treatments at night on the cycler. 2. Electrolytes. Patient has mild hyponatremia. This is secondary to her end-stage renal disease. 3. Acid-base balance. This is stable. 4. Anemia. This remains low, but stable. 5. Trembling noted to her lower extremities and upper extremities. Positive asterixis noted. Patient has been started on gabapentin 300 t.i.d. This needs to be adjusted to renal dosing. We will place her on 100 mg at bedtime only with note that this will probably improve her trembling. I would like to thank you for allowing us to follow with this patient. Dictated by CALI Park for Dany Fofana MD cc: CALI Park MD
[2016-10-26 11:11] LABS: CK INDEX 1.1 (0.0-2.5)
[2016-10-26 11:59] LABS: DIFF NEEDED? YES; MONOS 34 %; POLYS 66 %; WBC BF 63 /cumm
[2016-10-26 16:38] VITALS: BP 108/51
[2016-10-26] MEDS ORDERED: NEURONTIN PO SCH (21:00)
--- NOTE | 2016-10-27 10:35 | DISCHARGE SUMMARY ---
ADMISSION DATE: 10/25/2016 DISCHARGE DATE: 10/26/2016 CONSULTATIONS: 1. Dr. Fofana for peritoneal dialysis management. 2. Dr. Lopez for atypical chest pain, elevated troponins. PROBLEM LIST: 1. Atypical chest pain, possibly related to gastritis. 2. Chronically elevated troponins related to renal failure. HOSPITAL COURSE: Briefly, this is a 46-year-old female, who comes from home with chest pain. She is a peritoneal dialysis patient. She has obesity hypoventilation syndrome, morbidly obese. She came in for evaluation. She did have elevation in her cardiac enzymes for which she was monitored and cardiology was consulted. EKG was really unrevealing. Chest CT was obtained which was really unremarkable. Dr. Lopez evaluated the patient and recommended trending her enzymes. Echocardiogram was obtained on the which was really unremarkable. Ejection fraction 65%. No wall motion abnormality. Moderately enlarged right ventricle. The patient was observed and had stabilized. She did have some constipation issues. Pain was felt to be related to reflux more than anything else. At this point, Dr. Lopez felt that she could be discharged home on the . DISCHARGE MEDICATIONS: 1. Elavil 50 at bedtime. 2. Ecotrin 81 daily. 3. Estradiol 1 daily. 4. Neurontin was decreased to [address] Fofana felt she had asterixis associated with that. 5. Maybrook p.r.n. 6. NovoLog 40 at bedtime. 7. Lantus 40 daily. 8. Claritin 10 daily. 9. Robaxin 1 g at bedtime. 10. Lopressor 50 b.i.d. 11. Zofran p.r.n. 12. Requip 2 daily. 13. Zoloft 50 daily. 14. Sevelamer 800 daily. 15. I am going to give her a prescription also for Prilosec 40 daily. RECOMMENDATIONS: Recommend follow up with GI as an outpatient for further evaluation. Outpatient endoscopy if she has persistent chest discomfort. I think she was set up for home health as well for further evaluation. cc: MD Shanna Major CRNP Reginald D. Gladish, MD
== END 2016-10-26 13:30 | disposition home health service (06) ==
LOC: 3N 21:33 → ED 21:33 → SUATTDRO 10-24 01:40
PROVIDERS: ATTEND Internal Medicine

== ENCOUNTER 2016-12-04 17:17 | Inpatient (IN) ==
--- NOTE | 2016-12-04 17:56 | PROVIDER DOCUMENTATION ---
This chart was entered by Ary Fountain Scribe, acting as scribe for Jude Myrick MD. HPI-General Adult - General Source: patient - History of Present Illness -Gen Adult Nature of Presenting Problems: Pt is a 46 year old female who came to the ED with a cc of diarrhea, infected port, and ulcers on the left foot. Location of Pain/Injury: reports: lower extremity Pain Radiation: reports: no radiation Quality of Pain: reports: none Onset/Duration: reports: unsure Timing: reports: still present Context/Activities at Onset: reports: none Modifying Factors: improves with: nothing Associated Symptoms: reports: diarrhea Similar Symptoms Previously?: No Recently seen or treated by another doctor?: No <Jude Myrick - Last Filed: 12/04/16 17:55> - General Source: patient <Juanjo Diaz - Last Filed: 12/04/16 19:29> - General Chief Complaint: Diarrhea Stated Complaint: FLUID BUILD UP Time Seen by Provider: 12/04/16 17:29 Allergies/Adverse Reactions: Patient Allergies Allergy/AdvReac Type Severity Reaction Status Date / Time oxycodone HCl * [From Tylox] Allergy Intermediate HIVES Verified 11/18/16 09:17 baclofen Allergy Unknown Verified 11/18/16 09:17 hydralazine Allergy Unknown Verified 11/18/16 09:17 caffeine AdvReac Intermediate Unknown Verified 11/18/16 09:17 carvedilol [From Coreg] AdvReac Intermediate Unknown Verified 11/18/16 09:17 cyclobenzaprine HCl * AdvReac Intermediate Unknown Verified 11/18/16 09:17 [From Flexeril] sodium AdvReac Intermediate SWELLING Verified 11/18/16 09:17 atorvastatin calcium * AdvReac Unknown Verified 11/18/16 09:17 [From Lipitor] clindamycin AdvReac DIARRHEA Verified 11/18/16 09:17 Home Medications: Home Medication List Medication Instructions Recorded Confirmed Last Taken Type Amitriptyline [Elavil] 50 mg PO QHS 10/23/16 11/18/16 12/03/16 20:00 History Aspirin [Ecotrin] 81 mg PO DAILY 10/23/16 11/18/16 12/04/16 08:00 History Estradiol 1 mg PO DAILY 10/23/16 11/18/16 12/04/16 08:00 History Hydrocodone/Acetaminophen [[place] 1 tab PO Q6H PRN 10/23/16 11/18/16 11/17/16 21: 00 History 10-325 Tablet] Insulin Aspart [Novolog] 1 dose SUBQ DIRECTED 10/23/16 11/18/16 12/04/16 08: 00 History Insulin Glargine [Lantus] 45 units SUBQ QHS 10/23/16 11/18/16 12/03/16 20:00 History Methocarbamol [Robaxin] 1,000 mg PO QHS 10/23/16 11/18/16 12/03/16 19:00 History Metoprolol [Lopressor] 50 mg PO BID 10/23/16 11/18/16 12/04/16 08:00 History Ondansetron HCl [Zofran] 4 mg PO PRN PRN 10/23/16 11/18/16 11/11/16 History Ropinirole HCl [Requip] 2 mg PO DAILY 10/23/16 11/18/16 12/04/16 08:00 History Sertraline [Zoloft] 50 mg PO DAILY 10/23/16 11/18/16 12/04/16 08:00 History Sevelamer Carbonate [Renvela] 4 tab PO TID 10/23/16 11/18/16 12/04/16 12:00 History Gabapentin [Neurontin] 100 mg PO QHS #30 capsule 10/26/16 11/18/16 12/03/16 20: 00 Rx Omeprazole [Prilosec] 40 mg PO DAILY #30 capsule. 10/26/16 11/18/16 12/04/16 08:00 Rx Calcitriol 0.25 mcg PO DAILY 11/17/16 11/18/16 12/04/16 08:00 History Loratadine [Claritin] 10 mg PO DAILY 11/17/16 11/18/16 12/04/16 08:00 History Review of Systems - Adult - REVIEW OF SYSTEMS - ADULT Constitutional: reports: no symptoms reported Eyes: denies: discharge, decreased vision Ears, Nose, Mouth & Throat: denies: ear pain, throat swelling Cardiovascular: reports: no symptoms reported Respiratory: denies: cough, shortness of breath Gastrointestinal: reports: diarrhea. denies: abdominal pain, nausea, vomiting Genitourinary: reports: no symptoms reported Musculoskeletal: reports: no symptoms reported Integumentary: reports: skin sores/ulcer, other (port infection). denies: nail changes, skin thickening Neurological: reports: no symptoms reported Psychiatric: reports: no symptoms reported Endocrine: reports: no symptoms reported Hematologic/Lymphatic: reports: no symptoms reported Allergic/Immunologic: reports: no symptoms reported All Other Systems: Reviewed and Negative <Jdue Myrick - Last Filed: 12/04/16 17:55> - REVIEW OF SYSTEMS - ADULT Constitutional: reports: no symptoms reported <Juanjo Diaz - Last Filed: 12/04/16 19:29> Past History - Adult - PAST MEDICAL HISTORY-ADULT Review of Records: reports: Old Records Reviewed, Nursing Assessment Review Major Childhood Illnesses: reports: denies history Cardiovascular: reports: HTN, hyperlipidemia Respiratory: reports: other (sleep apnea) Gastrointestinal: reports: denies history Obstetrical/Gynecological: reports: denies history Genitourinary: reports: denies history Musculoskeletal: reports: chronic pain (low back) Neurological: reports: other (diabetic neuropathy) Psychiatric: reports: depression Endocrine/Immune: reports: Diabetes, thyroid disorder (hypothyroid) Other Conditions: reports: denies history - PRIOR SURGERIES/PROCEDURES Surgical/Procedure History: reports: hysterectomy, other (toe nail removal; toe amputation) - PRIOR HOSPITALIZATIONS Prior Hospitalizations: reports: for other non-related - IMMUNIZATION STATUS Childhood Immunizations: See Nurse Assessment Flu Vaccine: See Nurse Assessment - FAMILY HISTORY Family History: reviewed, not pertinent <Jude Myrick - Last Filed: 12/04/16 17:55> - PAST MEDICAL HISTORY-ADULT Review of Records: reports: Old Records Reviewed, Nursing Assessment Review, Medications Reviewed, Social history reviewed & non-contributory. <Juanjo Diaz - Last Filed: 12/04/16 19:29> Physical Exam-General - PHYSICAL EXAM-ADULT Initial Vital Signs Reviewed: Yes - CONSTITUTIONAL General Appearance: no apparent distress, obese - EYES Eyes: PERRL/EOMI, pink conjunctivae - HEAD, EARS, NOSE, MOUTH & THROAT HENMT: moist mucous membranes - NECK Neck: non-tender - RESPIRATORY Respiratory: lungs clear, normal breath sounds - CARDIOVASCULAR Cardiovascular: regular rate, rhythm - GASTROINTESTINAL (ABDOMEN) Abdominal Exam: soft, other (morbidly obese, difficult to assess) - MUSCULOSKELETAL Extremity: pedal edema (3+, brawny), other (tip of great toe on the left is bruised/infected. The inner portion of left heel has 3-4cm round black ulceration c/w gangrene) - SKIN Integumentary: normal color - NEUROLOGIC Neurologic: grossly normal - PSYCHIATRIC Psych/Mental Status: normal mood/affect, normal thought content, normal thought process, oriented x 3 <Jude Myrick - Last Filed: 12/04/16 17:55> - PHYSICAL EXAM-ADULT Initial Vital Signs Reviewed: Yes - CONSTITUTIONAL General Appearance: alert, no apparent distress <Juanjo Diaz - Last Filed: 12/04/16 19:29> Progress - PLAN OF CARE/RESULTS Progress/Plan/Lab Results: Vital Signs - 8 hr 12/04/16 17:20 Temperature 98.4 F Pulse Rate 100 H Respiratory Rate 20 Blood Pressure 135/73 O2 Sat by Pulse Oximetry 99 - CHANGE OF SHIFT REPORT (ED Provider) Report Given and Care Transferred to:: Dr. Barrett Time of Transfer: 17:47 Items Pending: Labs, Other <Jude Myrick - Last Filed: 12/04/16 17:55> - PLAN OF CARE/RESULTS Progress/Plan/Lab Results: Vital Signs - 8 hr 12/04/16 17:20 Temperature 98.4 F Pulse Rate 100 H Respiratory Rate 20 Blood Pressure 135/73 O2 Sat by Pulse Oximetry 99 Laboratory Results - last 24 hr 12/04/16 12/04/16 12/04/16 18:11 18:11 18:11 WBC 9.66 RBC 2.62 L Hgb 7.5 L Hct 25.7 L MCV 98.1 MCH 28.6 MCHC 29.2 L RDW Std Deviation 16.6 H Plt Count 336 MPV 8.6 Immature Gran % (Auto) 0.7 H Neut % (Auto) 68.9 Lymph % (Auto) 12.6 L Stan[place] % (Auto) 7.7 Eos % (Auto) 9.8 Baso % (Auto) 0.3 Immature Gran # (Auto) 0.07 H Neut # (Auto) 6.65 H Lymph # (Auto) 1.22 [place] # (Auto) 0.74 H Eos # (Auto) 0.95 H Baso # (Auto) 0.03 PT 10.6 INR 1.01 Sodium 135 L Potassium 4.3 Chloride 94 L Carbon Dioxide 26 Anion Gap 15 BUN 23 H Creatinine 4.9 H Estimated GFR/1.73 m2 9 BUN/Creatinine Ratio 5 Glucose 75 Calculated Osmolality 272 Calcium 9.1 Magnesium 1.6 Total Bilirubin 0.23 AST 20 ALT 18 Alkaline Phosphatase 119 H Total Protein 6.7 Albumin 3.1 L Globulin 3.6 Albumin/Globulin Ratio 0.9 Orders Category Date Time Status CBC WITH ELECTRONIC DIFF [HEME] Stat Lab 12/04/16 18:11 Completed COMPREHENSIVE METABOLIC PANEL [CHEM] Stat Lab 12/04/16 18:11 Completed MAGNESIUM [CHEM] Stat Lab 12/04/16 18:11 Completed PROTIME WITH INR [COAG] Stat Lab 12/04/16 18:11 Completed Result Diagrams: 12/04/16 18:11 12/04/16 18:11 <Juanjo Diaz - Last Filed: 12/04/16 19:29> Departure - Departure Certified Medical Emergency: Emergent <Jude Myrick - Last Filed: 12/04/16 17:55> - Departure Date of Disposition Decision: 12/04/16 Time of Disposition Decision: 19:28 Certified Medical Emergency: Emergent - Critical Care Note This patient required my direct & personal management of CC.: No <Juanjo Diaz - Last Filed: 12/04/16 19:29> - Departure DIAGNOSIS: Diabetes mellitus, Morbid (severe) obesity due to excess calories, ESRD (end stage renal disease) on dialysis, Edema, Gangrene Disposition: ADMITTED INPATIENT 09 Condition: Stable Referrals and Follow-Ups: Silverio Welch MD [Primary Care Provider] - Attestation - Physician/ DELBERT Attestation Patient care was provided by Advanced Practice Provider:: No The physician spent face to face time with patient:: Yes Advanced Practice Provider documentation review:: Supervising physician onsite and consulted in the evaluation and care of this patient. The physician did have a face to face encounter with the patient. <Juanjo Diaz - Last Filed: 12/04/16 19:29> This chart was documented by the indicated [email or web address], (Ary Fountain, Sonia) and accurately reflects the services I performed and decisions made by me, Jude Myrick MD, as attested by the provider's signature.
[2016-12-04 18:19] LABS: MANUAL DIFF NEEDED? NO
[2016-12-04 18:30] LABS: BASO% 0.3 % (0.0-0.8); EOS# 0.95 X1000 (0.0-0.7); EOS% 9.8 % (0.0-10.0); HEMATOCRIT 25.7 % (37.0-47.0); HEMOGLOBIN 7.5 g/dL (12.0-16.0); IMM GRAN# 0.07 X1000 (0.0-0.04); IMM GRAN% 0.7 % (0.0-0.5); LYMPH# 1.22 X1000 (1.2-3.4); LYMPH% 12.6 % (20.5-51.1); MCH 28.6 PG (27-31); MCHC 29.2 g/dL (33-37); MCV 98.1 FL (81-99); MONO# 0.74 X1000 (0.11-0.59); MONO% 7.7 % (1.7-9.3); MPV 8.6 FL (7.4-10.4); NEUT% 68.9 % (42.2-75.2); PLT 336 X1000 (130-400); RBC 2.62 XMIL (4.2-5.4)
[2016-12-04 18:36] LABS: INR 1.01; PROTIME 10.6 Seconds (9.2-11.7)
[2016-12-04 18:45] LABS: ALBUMIN 3.1 g/dL (3.5-5.0); CALCIUM 9.1 mg/dL (8.8-10.2); MAGNESIUM 1.6 mg/dL (1.5-2.7); POTASSIUM 4.3 mmol/L (3.5-5.1); TOTAL BILIRUBIN 0.23 mg/dL (0.20-1.00); TOTAL PROTEIN 6.7 g/dL (6.3-8.3)
[2016-12-04] MEDS ORDERED: ZOFRAN PO PRN (20:34)
[2016-12-04] MEDS ORDERED: INSULIN ASPART SUBQ SCH (20:45)
--- NOTE | 2016-12-04 21:17 | Diag Imaging Result Doc PS360 ---
EXAM: CHEST-PORTABLE - 12/04/2016 HISTORY: sob TECHNIQUE: Portable chest 2044 COMPARISON: 11/18/2016 FINDINGS: Heart size appears upper normal and stable. There is chronic elevation of the right hemidiaphragm with mild right basilar atelectasis. Compared to previous exam, there are no acute pulmonary changes identified. There is no pleural effusion or pneumothorax identified. Central venous catheter remains in place. There is been interval mild separation of the 2 lumens of the catheter at its distal portion of questionable significance. IMPRESSION: Chronic elevation of right hemidiaphragm with mild right basilar atelectasis. No other evidence of acute disease. Electronically signed by Aly Santos 12/04/2016 9:15 PM
[2016-12-04] MEDS: NEURONTIN PO SCH (21:26)
[2016-12-04] MEDS ORDERED: VANCOMYCIN 1 GM/NS 1 GM/250 ML IVPB IV ONE (22:00)
--- NOTE | 2016-12-04 22:00 | HISTORY AND PHYSICAL ---
PRIMARY CARE PROVIDER: 1. CALI Espinal. 2. Dany Fofana MD, diesel automotive technician. 3. Roque Pickett MD, surgeon CHIEF COMPLAINT: Shortness of breath. HISTORY OF PRESENT ILLNESS: Ms. Nelson is a 46-year-old, female with a history of end- stage renal disease. She was on peritoneal dialysis and has recently switched over to hemodialysis with Wednesday, Wednesday, Wednesday treatment dates. She is noted to be morbidly obese with critically low lung volume. She started having diarrhea this previous Wednesday which has continued. She spoke to Dr. Fofana who told her to come into the ER. She was noted to have global anasarca and will likely need further dialysis. She has comorbidities of hypertension, diabetes mellitus type 2 now insulin-dependent, diabetic neuropathy, hypothyroidism, as well as anemia of chronic disease. She is saturating well on room air and is in no acute distress in the emergency room. A chest x-ray is pending. She will be placed on the medical floor for further evaluation and treatment. PAST MEDICAL HISTORY: Sleep apnea, RLS otherwise see HPI. PAST SURGICAL HISTORY: 1. Left toe amputation secondary to osteomyelitis. 2. Hysterectomy. 3. Peritoneal dialysis catheter placement. 4. Right subclavian Lozano placement. SOCIAL HISTORY: Denies tobacco, alcohol, illicit drug use or abuse. FAMILY HISTORY: Mother from myocardial infarction. She also had diabetes mellitus. Brother and sister with coronary artery disease and diabetes mellitus. Father with diabetes mellitus. An additional brother with a CVA. ALLERGIES: Acetaminophen, morphine, oxycodone, baclofen, hydralazine, Precose, caffeine, carvedilol, Flexeril, ibuprofen, naproxen, [place]andia sodium, Lipitor, clindamycin , Lyrica. HOME MEDICATIONS: 1. [place]win 10, 1 p.o. q.6 p.r.n. 2. Metoprolol 50 mg p.o. b.i.d. 3. Lantus 45 units subcutaneously at bedtime. 4. NovoLog sliding scale as directed. 5. Zofran 4 mg p.o. p.r.n. nausea. 6. Elavil 50 mg p.o. at bedtime. 7. Requip 2 mg p.o. daily. 8. Robaxin 1000 mg p.o. at bedtime. 9. Zoloft 50 mg p.o. daily. 10. Estradiol 1 mg p.o. daily. 11. Aspirin 81 mg p.o. daily. 12. Renvela 800 mg tablets, 4 tablets p.o. t.i.d. 13. Neurontin 100 mg p.o. at bedtime. 14. Prilosec 40 mg p.o. daily. 15. Calcitriol 0.25 mcg p.o. daily. 16. Claritin 10 mg p.o. daily. REVIEW OF SYSTEMS: A 14 point review of systems was conducted with patient. She complains of soreness around her Lozano catheter as well as erythema. Other than pertinent positives listed above in the HPI, all other systems were reviewed and found to be negative. PHYSICAL EXAMINATION: VITAL SIGNS: Temp 98.4 degrees, pulse 100, respirations 20, blood pressure 135/ 73, oxygen saturation 99% on room air. GENERAL: Very pleasant, 46-year-old female, lying on the ER stretcher. Answers all questions appropriately. Alert and oriented x3. HEENT: Head is atraumatic, normocephalic. Pupils equal, round, reactive to light. Extraocular eye movements intact. Sclerae is anicteric. Conjunctivae is pale. Oral mucosa is moist. NECK: Short and thick. Difficult to assess JVD secondary to body habitus. No carotid bruit on auscultation. Trachea is midline. CHEST: Right Lozano catheter with noted erythema and tenderness to palpation around the insertion site. LUNGS: Decreased bilaterally. Poor inspiratory effort. Otherwise clear to auscultation. No rhonchi, wheezes or rales. Symmetrical rise and fall with respirations. CARDIAC: Regular rhythm. S1-S2 appreciated. No murmurs, gallops, rubs. ABDOMEN: Protuberant, soft, nondistended, nontender. Bowel sounds present in all 4 quadrants. Normoactive. Peritoneal dialysis catheter noted. No signs of infection. NEUROLOGICAL: Alert and oriented x3. Cranial nerves 2-12 grossly intact. SKIN: Warm, dry and intact. Anasarca noted. EXTREMITIES: 2 to 3+ bilateral lower extremity pitting edema. Decreased pedal pulses bilaterally. Upper extremity pitting edema noted as well. DIAGNOSTIC DATA: Chest x-ray pending. LABORATORY DATA: WBC 9.66, hemoglobin 7.5, hematocrit 25.7, platelet count 336, 000, coags within normal limits. Sodium 135, potassium 4.3, chloride 94, carbon dioxide 26, BUN 23, creatinine 1.9, glucose 154. ASSESSMENT AND PLAN: 1. End-stage renal disease with hemodialysis. We will consult Dr. Fofana for additional hemodialysis treatment likely tomorrow. The patient is anuric so she cannot be diuresed. 2. Possible line infection associated with Lozano catheter. As noted above there was erythema and tenderness at the insertion site. We will draw blood cultures. Give 1 dose of vancomycin at this time. We will defer to Dr. Fofana for dosing. 3. Anemia of chronic disease. The patient is stable. We will monitor. 4. Diabetes mellitus type 2 now insulin-dependent. Continue home insulin. Place on sliding scale. Checking hemoglobin A1c. 5. Dyspnea on exertion. Chest x-ray is pending. Patient has been noted in the past to have critically low lung volumes. She is on home O2. We will continue. 6. Left foot great toe ulceration and heel ulceration. Will consult Dr. Pickett for evaluation of ulcers and Lozano catheter as he placed it for possible line infection. We will order wound care for ulcerations on the lower extremity. 7. Further recommendations pending clinical course. Dictated by CALI Isabel for Randa Coreas MD Seen and examined pt. Discussed plan of care with [employer] DEVELOPER. cc: CALI Isabel MD Anna M. Dumas, CRNP [facility]AMPUSIveth
[2016-12-05] MEDS ORDERED: PRILOSEC PO ONE (00:18)
[2016-12-05] MEDS: ROBAXIN PO SCH ×2 (00:46→20:11)
[2016-12-05] MEDS: ELAVIL PO SCH ×2 (00:47→20:11)
[2016-12-05] MEDS: LOPRESSOR PO SCH ×3 (00:47→20:11)
[2016-12-05] MEDS: HEPARIN SUBQ SCH ×4 (00:48→20:10)
[2016-12-05] MEDS: HUMALOG SUBQ SCH ×5 (00:48→20:22)
[2016-12-05] MEDS: LANTUS SUBQ SCH ×2 (00:50→20:23)
[2016-12-05 06:06] LABS: MANUAL DIFF NEEDED? NO
[2016-12-05 06:13] LABS: BASO% 0.3 % (0.0-0.8); EOS# 1.09 X1000 (0.0-0.7); EOS% 11.5 % (0.0-10.0); HEMATOCRIT 25.2 % (37.0-47.0); HEMOGLOBIN 7.5 g/dL (12.0-16.0); IMM GRAN# 0.09 X1000 (0.0-0.04); IMM GRAN% 0.9 % (0.0-0.5); LYMPH# 1.21 X1000 (1.2-3.4); LYMPH% 12.7 % (20.5-51.1); MCH 29.2 PG (27-31); MCHC 29.8 g/dL (33-37); MCV 98.1 FL (81-99); MONO# 0.61 X1000 (0.11-0.59); MONO% 6.4 % (1.7-9.3); MPV 8.6 FL (7.4-10.4); NEUT% 68.2 % (42.2-75.2); PLT 312 X1000 (130-400); RBC 2.57 XMIL (4.2-5.4)
[2016-12-05 06:22] LABS: CALCIUM 8.4 mg/dL (8.8-10.2); POTASSIUM 4.7 mmol/L (3.5-5.1)
[2016-12-05] MEDS: PRILOSEC PO SCH (06:54)
[2016-12-05] MEDS ORDERED: HEPARIN ONE (07:44)
[2016-12-05] MEDS ORDERED: NS 2,000 ML ONE (07:45)
[2016-12-05] MEDS ORDERED: NS 2,000 ML MISC PRN (08:22)
[2016-12-05] MEDS: RENAGEL PO SCH ×3 (12:15→18:48)
[2016-12-05] MEDS: ASPIRIN EC PO SCH (12:16)
[2016-12-05] MEDS: ESTRACE PO SCH (12:16)
[2016-12-05] MEDS: ROCALTROL PO SCH (12:17)
[2016-12-05] MEDS: ZOLOFT PO SCH (12:17)
[2016-12-05] MEDS: REQUIP PO SCH (12:17)
[2016-12-05] MEDS: CLARITIN PO SCH (12:17)
--- NOTE | 2016-12-05 14:17 | CONSULTATION ---
DATE OF CONSULTATION: 12/05/2016 CHIEF COMPLAINT: Left heel ulcer. HISTORY: This is a 46-year-old white female who has been followed by Dr. Pickett. She had a tunnel dialysis catheter placed in mid October. This is the result of a failed PD catheter attempt. She also has had a amputation of a toe on the left foot that is healed. She now has a left medial heel ulcer that has been present for over a month. OTHER MEDICAL PROBLEMS: Include chronic kidney disease stage 5, hypertension, type 2 diabetes, hypothyroidism. OTHER SURGERIES: Include hysterectomy. SOCIAL HISTORY: Does not drink alcohol or use tobacco. FAMILY HISTORY: Pertinent for ischemic heart disease and diabetes. ALLERGIES: Are extensive. HOME MEDICATIONS: Are listed. REVIEW OF SYSTEMS: As noted above. PHYSICAL EXAMINATION: Vital Signs: She is afebrile. Heart rate 89, respiratory 16, blood pressure 138/68. Chest: Tunnel dialysis catheter is in the right upper anterior chest. There is some minimal erythema around it. Bilateral breath sounds. Heart: Regular rate and rhythm. Abdomen: Soft. Extremities: Her periphery shows some pitting edema bilaterally. Healed toe amputation and eschar in the left medial heel. I cannot palpate pedal pulses but this may be related to her edema. ASSESSMENT: Her tunnel dialysis catheter is new. I think it is too early to assume an infection. We will see what the culture reports show. The left heel must be supported then kept off the bed. The eschar will need to be debrided. Will check her lower extremity arterial study to evaluate arterial flow. She does have a history of a toe amputation that healed well so I see no reason why her heel debridement will not heal as well. cc: Elton Avelar MD
[2016-12-05] MEDS: VANCOMYCIN 1 GM/NS 1 GM/250 ML IVPB IV SCH (14:39)
[2016-12-05] MEDS: SANTYL OINT TOP SCH (16:18)
--- NOTE | 2016-12-05 16:24 | PROGRESS NOTE ---
DATE: 12/05/2016 SUBJECTIVE: Patient has no focal complaints. OBJECTIVE: Vital signs: Blood pressure 122/49, heart rate of 90, respiratory 17, temperature 98.8 degrees, 91% on room air. Cardiovascular: Regular rate and rhythm. Pulmonary: Bilateral breath sounds. Clear to auscultation. GI: Soft, nontender, nondistended. Bowel sounds are positive. Extremities: Her left heel has a 4 cm circular ulceration with eschar deep to it. Her right-sided there is some erythema around the entry site and then a little bit of exudate but no gross purulence. PROBLEM LIST: 1. Volume overload end-stage renal. She appears to be better. We are continuing dialysis per Dr. Fofana. 2. Left heel ulcer. Surgery is following. She is getting wound care and vancomycin per renal dosing until cultures are returned. I am going to add some Santyl to the area place to the heel ulcer and we will follow. 3. Anemia. I am just going to check iron stores and we will follow. Likely related to renal dysfunction. 4. Diabetes appears to be stable. 5. Disposition. Pending culture results will discuss with surgery about long-term plan. If blood cultures are negative we may consider transitioning to oral antibiotics and hopefully home soon. cc: Alexei Welch MD
[2016-12-05] MEDS: NORCO-10 PO PRN (20:11)
[2016-12-05] MEDS: NEURONTIN PO SCH (20:11)
[2016-12-06] MEDS: HEPARIN SUBQ SCH ×3 (04:39→20:56)
[2016-12-06] MEDS: PRILOSEC PO SCH (06:08)
[2016-12-06] MEDS: HUMALOG SUBQ SCH ×4 (06:54→21:18)
[2016-12-06 07:09] LABS: HEMATOCRIT 24.5 % (37.0-47.0); HEMOGLOBIN 7.1 g/dL (12.0-16.0); MCH 28.6 PG (27-31); MCV 98.8 FL (81-99); MPV 8.6 FL (7.4-10.4); RBC 2.48 XMIL (4.2-5.4)
[2016-12-06 07:24] LABS: ALBUMIN 2.9 g/dL (3.5-5.0); CALCIUM 7.9 mg/dL (8.8-10.2); POTASSIUM 4.5 mmol/L (3.5-5.1)
[2016-12-06] MEDS ORDERED: EPOGEN SUBQ ONE (08:08)
[2016-12-06] MEDS: LOPRESSOR PO SCH ×2 (09:05→20:56)
[2016-12-06] MEDS: ESTRACE PO SCH (09:05)
[2016-12-06] MEDS: ZOLOFT PO SCH (09:05)
[2016-12-06] MEDS: CLARITIN PO SCH (09:05)
[2016-12-06] MEDS: REQUIP PO SCH (09:05)
[2016-12-06] MEDS: ROCALTROL PO SCH (09:05)
[2016-12-06] MEDS: ASPIRIN EC PO SCH (09:05)
[2016-12-06] MEDS: RENAGEL PO SCH ×3 (09:05→16:13)
[2016-12-06] MEDS: SANTYL OINT TOP SCH (09:06)
[2016-12-06] MEDS: VENOFER 200 MG in NS 150 ML IV SCH (09:10)
--- NOTE | 2016-12-06 09:34 | CONSULTATION ---
DATE OF CONSULTATION: 12/05/2016 REASON FOR CONSULTATION: ESRD and volume overload. HISTORY OF PRESENT ILLNESS: Ms. Nelson is a 46-year-old woman with diabetes, hypertension, morbid obesity. She had been on peritoneal dialysis, and still has her peritoneal dialysis catheter. However, within the last 2 weeks, the decision was made to transition her over to hemodialysis. This decision was made because of problems with exit site, as well as poor volume management and shortness of breath. Because of her obesity, she has significant obesity hypoventilation and critically small lung volumes. PD perhaps made this problem more difficult to manage. She states that her first week on hemodialysis went well and she had improvement, but subsequently she has been having problems with low blood pressure and difficulty achieving dry weight. Her weight has accumulated, and then she developed diarrhea, and based on this, she came to the emergency room for evaluation and was subsequently admitted. She also has an ulcer on the left heel. No chills or fevers. She does have some redness at her new catheter exit site. No pain or tenderness or discharge. PAST MEDICAL HISTORY: As above. She also has hypertension, peripheral neuropathy, peripheral vascular disease, etc. HOME MEDICATIONS: Includes [place], metoprolol, insulin, Zofran, Elavil, Requip, Robaxin, Zoloft, estradiol, aspirin, Renvela, gabapentin, omeprazole, calcitriol, Claritin. ALLERGIES: Multiple, as listed. SOCIAL HISTORY: No alcohol or tobacco. Lives with her family. . FAMILY HISTORY: Positive for heart disease, diabetes, and vascular disease. PHYSICAL EXAMINATION: Vital Signs: Blood pressure 112/76, heart rate 87, respirations 21, afebrile. Intake 700 mL. Output 3.2 L. General: No acute distress. Skin: Warm and dry. HEENT: Conjunctivae are pink. Pupils are equal. Neck: Neck veins are not visible. Oropharynx is moist. Trachea is midline. Heart: Regular and distant. Lungs: Equal and distant. Mild erythema surrounding the exit site, but no drainage, no tunnel erythema or tenderness. Abdomen: Obese and soft. Bowel sounds are present. PD catheter site is not examined. Extremities: Have 3+ edema. No clubbing or cyanosis. Her heel ulcer is not examined. Neurologic: Nonfocal. LABORATORY DATA: Reviewed in their entirety. IMPRESSION: 1. Volume overload. We will dialyze her for several days in a row in order to address her fluid retention. Monitor blood pressure carefully. 2. Anemia. We will add IV iron. 3. Possible infection. Blood cultures are negative. She is receiving vancomycin. She has not had a fever, and she denies fever at home. I will defer changes in her antibiotic to the primary team, but from my perspective, I do not see any need to continue that. 4. Anemia. Her iron stores are low by Nephrology standards, so I will give IV iron. Continue erythropoietin as well. cc: Dany Fofana MD
[2016-12-06] MEDS: NORCO-10 PO PRN (16:12)
[2016-12-06] MEDS: NEURONTIN PO SCH (20:55)
[2016-12-06] MEDS: ELAVIL PO SCH (20:56)
[2016-12-06] MEDS: ROBAXIN PO SCH (20:56)
[2016-12-06] MEDS: LANTUS SUBQ SCH (21:19)
--- NOTE | 2016-12-06 23:57 | PROGRESS NOTE ---
DATE: 12/06/2016 SUBJECTIVE: Patient has no focal complaints. She still feels somewhat short of breath. OBJECTIVE: Vital signs: Blood pressure 120/55, heart rate of 85, respiratory 19, temperature 98.4 degrees. Cardiovascular: Regular rate and rhythm. Pulmonary: Bilateral breath sounds. Diminished at the bases. GI: Soft, nontender, nondistended. Bowel sounds are positive. LABORATORY DATA: White count 8, hemoglobin and hematocrit 7 and 24. Basic was within normal limits except for creatinine of 4.7. PROBLEM LIST: 1. Volume overload. Will continue dialysis per renal service. 2. Left heel ulcer. Continue wound care Santyl. She has been on vancomycin. Would consider antibiotics although I think we are stopping vancomycin because there is no bloodstream infection. 3. Anemia is stable but persistent. Iron infusion per renal service. 4. Diabetes. Continue regular medications and follow closely. DISPOSITION: Possibly home in the next 1-2 days. cc: Alexei Welch MD
[2016-12-07] MEDS: NORCO-10 PO PRN ×3 (01:14→18:02)
[2016-12-07] MEDS: HEPARIN SUBQ SCH ×3 (05:18→22:22)
[2016-12-07] MEDS: PRILOSEC PO SCH (06:10)
[2016-12-07] MEDS: HUMALOG SUBQ SCH ×4 (06:11→22:24)
[2016-12-07] MEDS ORDERED: TIGHT: 0.2 ML/HR MISC PRN (06:46)
[2016-12-07] MEDS ORDERED: HEPARIN IV PRN (06:46)
[2016-12-07] MEDS ORDERED: NS 2,000 ML MISC PRN (06:46)
[2016-12-07] MEDS ORDERED: NS 2,000 ML ONE ×2 (08:15→09:41)
[2016-12-07] MEDS ORDERED: HEPARIN ONE (08:15)
[2016-12-07] MEDS: RENAGEL PO SCH ×3 (08:29→17:50)
--- NOTE | 2016-12-07 08:56 | PROGRESS NOTE ---
DATE: 12/07/2016 SUBJECTIVE: Ms. Nelson is sitting up in a chair. She denies chest pain or increased work of breathing. She states that she is still swollen. She only has orthopnea with exertion. OBJECTIVE: Vital Signs: Her most recent vital signs are temperature 98.2 degrees, blood pressure 115/57, heart rate 88, respirations 22. She is on room air. Last recorded saturation 100%. She has had 260 in. She has had 0 recorded out. Laboratory Data: Sodium 138, potassium 4.5, chloride is 98, CO2 28, BUN 21, creatinine 4.7, glucose 105, anion gap 12, calcium 7.9, phosphorus 3.4, albumin 2.9. White count 8.79, hemoglobin 7.1, hematocrit 24.5, with a platelet count of 309,000. Blood cultures have returned negative. Physical Examination: General: This is a 46-year-old, white female. She is resting quietly in a chair. She is in no acute distress. Skin: Warm and dry. HEENT: Normocephalic, atraumatic. Conjunctivae are pale. She has CINDY. Mucous membranes are moist. Neck: Supple. Trachea midline. Unable to determine JVD. Cardiovascular: Distant heart sounds. Regular rate and rhythm. No murmur or gallop appreciated. Lungs: Distant lung sounds secondary to body habitus. No crackles or wheezes noted. She is on room air. Abdomen: Large, obese, soft , nontender. Hypoactive bowel sounds. Genitourinary: Not inspected. Minimal void with dialysis assist. Extremities: She continues with 1 to 2+ lower extremity edema. No clubbing or cyanosis. She continues with redness with chronic venous stasis. ASSESSMENT AND PLAN: 1. End-stage renal disease. Patient is due for her routine dialysis treatment today. She is to be placed on a 2 K bath. We will dialyze her for 3.5 hours. We will attempt to pull 4 L of ultrafiltration. 2. Electrolytes. These are stable. 3. Acid-base balance. This is stable. 4. Anemia. This remains low. Patient was given intravenous iron. We will continue to watch and monitor. 5. Fluid volume overload. We have indicated that we will pull 4 L of ultrafiltration for the patient today. We will plan for daily dialysis to assist with the patient's fluid volume overload for the next several days. I would like to thank you for allowing us to follow with this patient. Patient seen, data reviewed, discussed with Rosa Maria Yeager on 12/07/16. I agree with the above assessment and plan of care. rg Dictated by CALI Park for Dany Fofana MD cc: CALI Park MD [facility]
--- NOTE | 2016-12-07 12:55 | PROGRESS NOTE ---
DATE: 12/07/2016 SUBJECTIVE: The patient is doing okay this morning. No acute complaints. OBJECTIVE: Vital Signs: She is afebrile. Vital signs are stable. General: She is alert and oriented x4. No acute distress. Skin: The right chest catheter is intact. There is no evidence of any erythema or drainage around it. The left heel has a decubitus ulcer with an eschar. Again, I do not see any drainage or erythema around it. The left great toe has a small blood blister, but no foul odor, erythema, or drainage. ASSESSMENT AND PLAN: 1. End-stage renal disease. She is currently getting hemodialysis through the chest catheter. I have been notified of a desire to have the peritoneal dialysis catheter removed and we can do this tomorrow. 2. Nonhealing left heel ulcer. We will not debride this in the operating room tomorrow at the same time that the PD catheters placed. Afterwards, I would suggest Santyl to the wound once a day and follow up in the wound Care [facility] with me. 3. Left great toe blood blister. Can safely be observed. cc: Roque Pickett MD
[2016-12-07] MEDS: REQUIP PO SCH (13:26)
[2016-12-07] MEDS: ROCALTROL PO SCH (13:27)
[2016-12-07] MEDS: LOPRESSOR PO SCH ×2 (13:27→22:00)
[2016-12-07] MEDS: CLARITIN PO SCH (13:27)
[2016-12-07] MEDS: ZOLOFT PO SCH (13:27)
[2016-12-07] MEDS: ESTRACE PO SCH (13:27)
[2016-12-07] MEDS: ASPIRIN EC PO SCH (13:27)
[2016-12-07] MEDS: SANTYL OINT TOP SCH (13:28)
[2016-12-07] MEDS: VENOFER 200 MG in NS 150 ML IV SCH (13:28)
[2016-12-07] MEDS: VANCOMYCIN 1 GM/NS 1 GM/250 ML IVPB IV SCH (15:10)
--- NOTE | 2016-12-07 17:08 | PROGRESS NOTE ---
DATE: 12/07/2016 SUBJECTIVE: The patient is sitting at the edge of the bed. She just returned from dialysis. No acute events noted overnight. OBJECTIVE: Vital Signs: Temperature 97.6 degrees, blood pressure 131/57, heart rate 83, respirations 16, O2 saturations 96% on room air. General: This is a morbidly obese female, sitting at the edge of the bed, in no acute distress. Head: Normocephalic atraumatic. Heart: S1, S2. Normal. Regular rate and rhythm. Lungs: Equal air entry bilaterally. No crackles. No rales. Abdomen: Positive bowel sounds. Soft, obese, nontender, nondistended. Extremities: 2 to 3+ edema of the left foot has a Kevyn bandage with 4 x 4s wrapped around it. Neurologic: The patient is alert and oriented x3. LAB: None. ASSESSMENT AND PLAN: 1. Volume overload. Management as per the stroke belt sander operator during dialysis. 2. Nonhealing left heel ulceration. The patient is scheduled to undergo debridement tomorrow. Continue on IV Vanco after dialysis. 3. Anemia. The patient is receiving intravenous iron and is on Epogen. Management as per the stroke belt sander operator. 4. Hypertension. Controlled. 5. Morbid obesity. Aware. 6. End-stage renal disease. The patient was dialyzed today. The patient will have her peritoneal dialysis catheter removed tomorrow in the OR. 7. Protein calorie malnutrition. Continue on the current diet. 8. Diabetes mellitus type 2 insulin dependent. Continue on Lantus plus sliding scale insulin. 9. Situational depression. Continue on Zoloft. cc: Maira Gupta MD [facility]
[2016-12-07] MEDS: ROBAXIN PO SCH (22:00)
[2016-12-07] MEDS: ELAVIL PO SCH (22:00)
[2016-12-07] MEDS: NEURONTIN PO SCH (22:00)
[2016-12-07] MEDS: LANTUS SUBQ SCH (23:08)
[2016-12-08] MEDS: NORCO-10 PO PRN ×2 (00:49→16:49)
[2016-12-08] MEDS ORDERED: TIGHT: 0.2 ML/HR MISC PRN (07:11)
[2016-12-08] MEDS ORDERED: NS 2,000 ML MISC PRN (07:11)
[2016-12-08] MEDS ORDERED: HEPARIN IV PRN (07:11)
[2016-12-08 07:12] LABS: HEMATOCRIT 26.4 % (37.0-47.0); HEMOGLOBIN 7.7 g/dL (12.0-16.0); MCH 29.5 PG (27-31); MCHC 29.2 g/dL (33-37); MCV 101.1 FL (81-99); MPV 8.6 FL (7.4-10.4); RBC 2.61 XMIL (4.2-5.4)
[2016-12-08 07:50] LABS: ALBUMIN 3.3 g/dL (3.5-5.0); CALCIUM 8.5 mg/dL (8.8-10.2); POTASSIUM 4.1 mmol/L (3.5-5.1)
--- NOTE | 2016-12-08 07:53 | VASCULAR LAB ---
PROCEDURE NAME: Arterial Bilateral Legs - 12/07/2016 REFERRING PHYSICIANS: Dr. Avelar and Dr. Pickett. INDICATIONS: The patient is a diabetic and has high blood pressure. She also has renal failure. She has a history of smoking but has quit many years ago. INDICATIONS: 1. Ulcer, heel and midfoot. ICD 10 L97.409. 2. Claudication in bilateral legs. ICD 10 170.213. FINDINGS: The systolic right brachial blood pressure was 141 mmHg. Right thigh was 222 mmHg and left thigh was 228 mmHg. Right calf is 205 mmHg and left calf 206 mmHg. Right ankle 194 mmHg and left ankle 212 mmHg. There is diminished pulsatile flow. There is significant diminished pulsatile flow in both feet, left worse than right. At rest, her right ankle-brachial index is 1.38. The right toe brachial index is 0.16. On the left at rest, the ankle-brachial index is 1.5 and the left toe brachial index is 0.06. INTERPRETATION: This is a limited study secondary to the patient's obesity and toleration of the study. It appears that she has significant bilateral femoropopliteal arterial disease and small vessel disease in both lower extremities, left worse than right. Her pressures are artificially elevated, probably because of calcified raines of the arteries. She does not have a good enough flow for wound healing, left foot. cc: MD Elton Rosen MD
[2016-12-08] MEDS ORDERED: NS 2,000 ML ONE (08:05)
[2016-12-08] MEDS ORDERED: HEPARIN ONE (08:05)
--- NOTE | 2016-12-08 09:30 | PROGRESS NOTE ---
DATE: 12/08/2016 SUBJECTIVE: Ms. Nelson is sitting up in a chair. She denies chest pain. No increased work of breathing. She states that she does have dyspnea with exertion walking to the bathroom. Otherwise, no acute distress. OBJECTIVE/VITAL SIGNS: Her most recent vital signs: Temperature is 98 degrees , blood pressure 122/67, heart rate 95, respirations 16. She is on room air. Last recorded saturation 97%. She has had 240 in and 4391 out. LABS: Sodium 135 potassium 4.1, chloride 96, CO2 28, BUN 19, creatinine 4, glucose 107. Her anion gap is 11. Calcium 8.5, phosphorus 2.5, albumin 3.3. White count 8.82, hemoglobin 7.7, hematocrit 26.4, with a platelet count of 318. PHYSICAL EXAM: General: This is a 46-year-old white female. She is resting quietly in a chair. She is in no acute distress. Skin: Warm and dry. HEENT: Normocephalic, atraumatic. Conjunctivae pale. She has CINDY. Mucous membranes moist. Neck: Supple. Trachea midline. Unable to determine JVD. Cardiovascular: Distant heart sounds. S1, S2 noted. No murmur or gallop appreciated. Lungs: Distant lung sounds secondary to body habitus. No crackles or wheezes noted on room air. Abdomen: Obese, soft, nontender. Positive bowel sounds with hypoactivity. Genitourinary: Not inspected. Minimal void with dialysis assist. Extremities: Continues with 1+ to 2+ lower extremity edema up above the knee area. No clubbing or cyanosis. She does have redness noted with chronic venous stasis and a dressing to the left foot. ASSESSMENT AND PLAN: 1. End-stage renal disease. Patient had her routine dialysis treatment yesterday secondary to her fluid volume overload. We will plan to dialyze her daily. She is to be placed on a 2 K bath. We will dialyze her for 3-1/2 hours. We will attempt to pull 4-6 L of ultrafiltration as tolerated. 2. Electrolytes and acid-base balance. These are stable. 3. Anemia. Patient continues on intravenous iron. Epogen is currently held. We continue to dialyze for fluid volume overload. I would like to thank you for allowing us to follow with this patient. Patient seen, data reviewed, discussed with Rosa Maria Yeager on 12/08/16. I agree with the above assessment and plan of care. rg Dictated by CALI Park for Dany Fofana MD cc: CALI Park MD [facility]
[2016-12-08] MEDS ORDERED: SENSORCAINE 0.25%/EPI 1:200,000 ONE (12:19)
[2016-12-08] MEDS ORDERED: XYLOCAINE-MPF 2% ONE (12:27)
[2016-12-08] MEDS ORDERED: FENTANYL ONE (12:28)
[2016-12-08] MEDS ORDERED: DIPRIVAN 1% ONE (12:28)
[2016-12-08] MEDS: HUMALOG SUBQ SCH ×3 (13:41→20:58)
--- NOTE | 2016-12-08 14:49 | OPERATIVE NOTE ---
PROCEDURE DATE: 12/08/2016 PREOPERATIVE DIAGNOSES: 1. End-stage renal disease. 2. Left heel decubitus ulcer. POSTOPERATIVE DIAGNOSES: 1. End-stage renal disease. 2. Left heel decubitus ulcer. PROCEDURE: 1. Removal of peritoneal dialysis catheter. 2. Debridement of skin and subcutaneous tissue less than 20 square cm of left heel. SURGEON: Roque Pickett MD. ANESTHESIA: General. ESTIMATED BLOOD LOSS: 10 mL. COMPLICATIONS: None apparent. SPECIMENS: None. FINDINGS: The left heel ulcer measured 3.0 x 2.3 cm. The extent of the ulcer reached the deep subcutaneous fat but there was no exposed bone. TECHNIQUE: She was brought to the operating room and placed supine on the table. General anesthesia was induced. She was prepped and draped in usual sterile fashion. Our previous incision near the midline below the umbilicus was incised with a knife. Dissection was carried down through the subcutaneous tissues with cautery. The peritoneal dialysis catheter was identified in the subcutaneous tissues. The subcutaneous cuff was freed of its surrounding attachments with cautery. The proximal portion of the catheter was cut with scissors and the proximal portion of the catheter was pulled out of the exit site and discarded. We then continued dissection down to the fascia where the distal cuff which was in an intramuscular position was freed from its fascial attachments with cautery and the remaining portion of the catheter was removed including the curved pigtail which was previously in an intraperitoneal position. I then reapproximated the fascial edges with a 2-0 Prolene suture. There was minimal subcutaneous bleeding which was controlled with cautery. The wound was closed with interrupted subcutaneous 3- 0 Polysorb and a running 4-0 subcuticular Monocryl, then Steri-Strips. I then turned my attention to the left heel. The eschar and callus was excised sharply back to healthier bleeding edges with a 10 blade. Cautery was used for hemostasis. The wound was dressed with a sterile dressing. There were no apparent complications. She was awakened in stable condition and transferred to the recovery room. cc: Roque Pickett MD
[2016-12-08] MEDS: RENAGEL PO SCH ×2 (16:49→16:53)
[2016-12-08] MEDS: REQUIP PO SCH (16:50)
[2016-12-08] MEDS: VENOFER 200 MG in NS 150 ML IV SCH (16:50)
[2016-12-08] MEDS: ZOLOFT PO SCH (16:51)
[2016-12-08] MEDS: PRILOSEC PO SCH (16:53)
[2016-12-08] MEDS: ROCALTROL PO SCH (16:55)
[2016-12-08] MEDS: LOPRESSOR PO SCH ×2 (16:55→20:53)
[2016-12-08] MEDS: ESTRACE PO SCH (16:55)
[2016-12-08] MEDS: CLARITIN PO SCH (16:55)
[2016-12-08] MEDS: ASPIRIN EC PO SCH (16:55)
[2016-12-08] MEDS: SANTYL OINT TOP SCH (16:56)
--- NOTE | 2016-12-08 17:19 | PROGRESS NOTE ---
DATE: 12/08/2016 SUBJECTIVE: The patient is resting comfortably in bed. No acute events noted overnight. OBJECTIVE: Vital Signs: Temperature 98.6 degrees, blood pressure 134/59, heart rate 85, respirations 14. O2 saturations 95% on room air. General: This is a morbidly obese female, lying in bed, in no acute distress. Head: Normocephalic, atraumatic. Heart: S1 , S2. Normal. Tachycardic. Lungs: Clear to auscultation bilaterally. No crackles. No rales. Abdomen: Positive bowel sounds. Soft, obese, nontender, nondistended. Extremities: 2 to 3+ edema. The left foot has a clean, dry dressing applied to the heel. Neurologic: patient is alert and oriented x3. LABORATORY DATA: White blood cell count 8.8, hemoglobin 7.7, hematocrit 26, platelets 318,000. Sodium 135, potassium 4.1, chloride 96, CO2 of 28. BUN 19, creatinine 4, glucose 107. Phosphorus 2.5. Calcium 8.5. ASSESSMENT AND PLAN: 1. Volume overload. Management as per the reed worker. 2. Nonhealing left heel ulceration. The patient is scheduled to have debridement done today. Management as per the general surgeon. 3. Peripheral arterial disease. Management as per the general surgeon. 4. Hypertension, controlled. 5. Morbid obesity. Aware. 6. Anemia. Continue to monitor. The patient is on Epogen and iron supplementation. 7. Diabetes mellitus, type 2. Continue on Lantus plus sliding scale insulin. 8. Situational depression. Continue on Zoloft. 9. Deep vein thrombosis prophylaxis. Continue on heparin. cc: Maira Gupta MD [facility]
[2016-12-08] MEDS: HEPARIN SUBQ SCH (20:52)
[2016-12-08] MEDS: NEURONTIN PO SCH (20:54)
[2016-12-08] MEDS: ROBAXIN PO SCH (20:54)
[2016-12-08] MEDS: ELAVIL PO SCH (20:54)
[2016-12-08] MEDS: LANTUS SUBQ SCH (20:55)
[2016-12-09] MEDS: NORCO-10 PO PRN ×3 (05:07→16:54)
[2016-12-09] MEDS: HEPARIN SUBQ SCH ×3 (05:08→22:00)
[2016-12-09] MEDS: HUMALOG SUBQ SCH ×4 (05:54→22:17)
[2016-12-09] MEDS: PRILOSEC PO SCH (06:30)
[2016-12-09] MEDS ORDERED: NS 2,000 ML MISC PRN (07:20)
[2016-12-09] MEDS ORDERED: HEPARIN IV PRN (07:20)
[2016-12-09] MEDS ORDERED: TIGHT: 0.2 ML/HR MISC PRN (07:20)
[2016-12-09 07:23] LABS: ALBUMIN 2.9 g/dL (3.5-5.0); CALCIUM 8.3 mg/dL (8.8-10.2); POTASSIUM 4.2 mmol/L (3.5-5.1)
[2016-12-09 07:30] LABS: HEMATOCRIT 27.1 % (37.0-47.0); HEMOGLOBIN 7.9 g/dL (12.0-16.0); MCH 28.9 PG (27-31); MCHC 29.2 g/dL (33-37); MCV 99.3 FL (81-99); MPV 8.6 FL (7.4-10.4); RBC 2.73 XMIL (4.2-5.4)
[2016-12-09] MEDS: RENAGEL PO SCH ×3 (09:38→16:54)
[2016-12-09] MEDS: ASPIRIN EC PO SCH (09:39)
[2016-12-09] MEDS: ZOLOFT PO SCH (09:39)
[2016-12-09] MEDS: ESTRACE PO SCH (09:39)
[2016-12-09] MEDS: CLARITIN PO SCH (09:39)
[2016-12-09] MEDS: REQUIP PO SCH (09:39)
[2016-12-09] MEDS: LOPRESSOR PO SCH ×2 (09:39→22:00)
[2016-12-09] MEDS: ROCALTROL PO SCH (09:39)
[2016-12-09] MEDS: VENOFER 200 MG in NS 150 ML IV SCH (09:39)
[2016-12-09] MEDS: SANTYL OINT TOP SCH (11:30)
[2016-12-09] MEDS ORDERED: NS 2,000 ML ONE (11:46)
[2016-12-09] MEDS ORDERED: HEPARIN ONE (11:46)
--- NOTE | 2016-12-09 13:23 | PROGRESS NOTE ---
DATE: 12/09/2016 SUBJECTIVE: Ms. Nelson is resting quietly in her chair. She has no complaints. She denies chest pain or increased work of breathing. She states that she has wrinkles to her knees and that her lower extremities are feeling better. OBJECTIVE: Vital Signs: Temperature 97.9 degrees blood pressure 140/54, heart rate 93, respirations 14. She is on room air. Last recorded saturation 96%. She has had 110 in and she has had 6010 out with 6 L on dialysis. She is in a -7.3 L fluid balance. LABORATORY DATA: Sodium 135, potassium 4.2, chloride 95, CO2 26, BUN 28, creatinine 5.5, glucose 159, anion gap 14, calcium 8.3, phosphorus 3.2, albumin 2.9. White count 9.3, hemoglobin 7.9, hematocrit 27.1, with a platelet count of 331,000. PHYSICAL EXAMINATION: General: This is a 46-year-old white female. She is resting quietly in a chair. She is in no acute distress. Skin: Warm and dry. HEENT: Normocephalic, atraumatic. Conjunctivae pale. She has CINDY. Mucous membranes are moist. Neck: Supple. Trachea midline. Unable to determine JVD. Cardiovascular: Distant heart sounds. S1-S2 noted. Unable to determine murmur or gallop. Lungs: Clear to auscultation anterior. Diminished secondary to body habitus. Remains on room air. Abdomen: Obese, soft, nontender. Hypo bowel sounds noted secondary to body habitus. Genitourinary: Not inspected. Minimal void with dialysis assist. Extremities: Continues with 2+ lower extremity edema. She does have chronic venous stasis. Left foot remains in a dressing. No shadow drainage noted. Neurological: Alert and oriented x3. ASSESSMENT AND PLAN: 1. End-stage renal disease. Patient has been dialyzed daily we will plan to dialyze her today on a 2 K bath. She is to dialyze for 3-1/2 hours. Again, we will attempt to pull 4-6 L of ultrafiltration as tolerated. 2. Electrolytes and acid-base balance. These remain stable. 3. Anemia. This remains low but stable. I would to thank you for allowing us to follow with this patient. Patient seen, data reviewed, discussed with Rosa Maria Yeager on 12/09/16. I agree with the above assessment and plan of care. rg Dictated by CALI Park for Dany Fofana MD cc: CALI Park MD [facility]
[2016-12-09] MEDS ORDERED: INSULIN PEN NEEDLES ONE (15:17)
--- NOTE | 2016-12-09 18:06 | PROGRESS NOTE ---
DATE: 12/09/2016 SUBJECTIVE: The patient is sitting up in a chair. She has no complaints today. She states that the swelling in her extremities is improving. OBJECTIVE: Vital Signs: Temperature 98 degrees, blood pressure 126/78, heart rate 76, respirations 18, O2 saturation is 96% on room air. General: This is a morbidly obese female, sitting in a chair, in no acute distress. Head: Normocephalic, atraumatic. Heart: S1, S2. Normal. Regular rate and rhythm. Lungs: Clear to auscultation bilaterally. No crackles. No rales. Abdomen: Positive bowel sounds. Soft, nontender, nondistended. Extremities: There is 2 to 3+ edema up to the thighs. Neurologic: The patient is alert and oriented x3. LABS: White blood cell count 9.3, hemoglobin 7.9, hematocrit 27, platelets 331,000. Sodium 135, potassium 4.2, chloride 95, CO2 26, BUN 28, creatinine 5.5, glucose 159, albumin 2.9. ASSESSMENT AND PLAN: 1. Volume overload. This will be addressed with dialysis as scheduled by the intranet developer. 2. Status post debridement of nonhealing left heel decubitus ulcer. Continue with wound care and antibiotic therapy. 3. End-stage renal disease. Management as per the intranet developer. 4. Anemia. Slightly improved. Continue on Epogen. 5. Morbid obesity. Aware. 6. Peripheral arterial disease. Aware. 7. Diabetes mellitus type 2. Continue on Lantus plus sliding scale insulin. 8. Situational depression. Continue on Zoloft. 9. Deep vein thrombosis prophylaxis. Continue on heparin. cc: Maira Gupta MD
[2016-12-09] MEDS: NEURONTIN PO SCH (22:00)
[2016-12-09] MEDS: LANTUS SUBQ SCH (22:00)
[2016-12-09] MEDS: ROBAXIN PO SCH (22:00)
[2016-12-09] MEDS: ELAVIL PO SCH (22:00)
[2016-12-10] MEDS: NORCO-10 PO PRN ×2 (00:40→07:50)
[2016-12-10] MEDS: HEPARIN SUBQ SCH ×3 (05:57→21:35)
[2016-12-10] MEDS: PRILOSEC PO SCH (06:51)
[2016-12-10] MEDS: HUMALOG SUBQ SCH ×4 (06:51→21:37)
[2016-12-10] MEDS ORDERED: HEPARIN IV PRN (06:59)
[2016-12-10] MEDS ORDERED: NS 2,000 ML MISC PRN (06:59)
[2016-12-10] MEDS ORDERED: TIGHT: 0.2 ML/HR MISC PRN (06:59)
[2016-12-10] MEDS ORDERED: NS 2,000 ML ONE (07:18)
[2016-12-10] MEDS ORDERED: HEPARIN ONE (07:18)
[2016-12-10 07:37] LABS: HEMATOCRIT 25.3 % (37.0-47.0); HEMOGLOBIN 7.5 g/dL (12.0-16.0); MCH 29.8 PG (27-31); MCHC 29.6 g/dL (33-37); MCV 100.4 FL (81-99); MPV 8.4 FL (7.4-10.4); RBC 2.52 XMIL (4.2-5.4)
[2016-12-10 07:45] LABS: ALBUMIN 2.9 g/dL (3.5-5.0); CALCIUM 7.8 mg/dL (8.8-10.2); POTASSIUM 4.2 mmol/L (3.5-5.1)
--- NOTE | 2016-12-10 09:00 | PROGRESS NOTE ---
DATE: 12/10/2016 SUBJECTIVE: Ms. Nelson is sitting up in a chair. She states that she is feeling a little bit better. She states that her swelling has improved. She denies chest pain or increased work of breathing. OBJECTIVE: Her most recent vital signs, temperature 97.6 degrees, blood pressure 137/70, heart rate 83, respirations are 14. She is on room air, last recorded saturation 99% . She has had zero recorded input, though she states that she has been drinking. She has had 4 liters off at dialysis. She is in a negative fluid balance, approximately 15 liter over the last 72 hours. LABORATORY DATA: Sodium 137, potassium 4.2, chloride 98, CO2 of 27, BUN 27, creatinine 5.2, glucose 108. Her anion gap is 12. Calcium 7.8, phosphorus 2.6, albumin 2.9. White count 10.27, hemoglobin 7.5, hematocrit 25.3, with a platelet count of 318,000. Blood cultures after 5 days show no growth. PHYSICAL EXAMINATION: General: This is a 46-year-old white female. She is resting quietly in a chair. She is in no acute distress. Skin: Warm and dry. HEENT: Normocephalic, atraumatic. Conjunctivae pale. She has CINDY. Mucous membranes are moist. Neck: Supple. Trachea midline. Unable to determine JVD. Cardiovascular: She is regular rate and rhythm. Unable to determine murmur or gallop. Lungs: Clear anteriorly, otherwise unable to auscultate deep breath sounds secondary to body habitus. The patient remains on room air, equal excursion. Abdomen: Soft, obese, nontender. Positive bowel sounds. Genitourinary: Not inspected. Minimal void with dialysis assist. Extremities: Continue with 2+ lower extremity edema. She continues with chronic venous stasis with dressing to the left foot. She has had her PD catheter removed. Neurological: Alert and oriented x3. ASSESSMENT AND PLAN: 1. End-stage renal disease. The patient is again to dialyze today. We will set her up for ultrafiltration only of 4 to 6 liters. She is to dialyze for 3-1/2 hours. We will set her on a 2-potassium. 2. Electrolytes. This appears stable. 3. Acid-base balance. This is stable. 4. Anemia. This remains low, but stable. I would like to thank you for allowing us to follow with this patient. Patient seen, data reviewed, discussed with Rosa Maria Yeager on 12/10/16. I agree with the above assessment and plan of care. rg Dictated by CALI Park for Dany Fofana MD cc: CALI Park MD [facility]
[2016-12-10] MEDS: RENAGEL PO SCH ×3 (09:42→16:08)
[2016-12-10] MEDS: ZOLOFT PO SCH (09:42)
[2016-12-10] MEDS: ESTRACE PO SCH (09:42)
[2016-12-10] MEDS: ROCALTROL PO SCH (09:42)
[2016-12-10] MEDS: REQUIP PO SCH ×2 (09:42→21:36)
[2016-12-10] MEDS: CLARITIN PO SCH (09:42)
[2016-12-10] MEDS: ASPIRIN EC PO SCH (09:42)
[2016-12-10] MEDS: LOPRESSOR PO SCH ×2 (09:42→21:36)
[2016-12-10] MEDS: VENOFER 200 MG in NS 150 ML IV SCH (14:03)
[2016-12-10] MEDS: PERCOCET-10 PO PRN ×2 (15:29→21:44)
[2016-12-10] MEDS: SANTYL OINT TOP SCH (15:32)
--- NOTE | 2016-12-10 16:43 | PROGRESS NOTE ---
DATE: 12/10/2016 SUBJECTIVE: The patient is resting comfortably. She does complain of back pain. OBJECTIVE: Vital Signs: Temperature 98.1 degrees, blood pressure 142/63, heart rate 90, respirations 16, and O2 saturation is 100% on room air. General: This is a morbidly obese female, lying in bed, in no acute distress. Head: Normocephalic, atraumatic. Heart: S1 and S2, normal. Lungs: Clear to auscultation bilaterally. Abdomen: Positive bowel sounds. Soft, nontender, nondistended. Extremities: There is 2+edema. The left foot is wrapped in a clean dry dressing. Neurologic: The patient is alert and oriented x3. LABORATORY STUDIES: White blood cell count 10, hemoglobin 7.5, hematocrit 25, platelets 318,000. Sodium 137, potassium 4.2, chloride 98, CO2 of 27, BUN 27, creatinine 5.2, glucose 108, phosphorus 2.6, albumin 2.9. ASSESSMENT AND PLAN: 1. Volume overload. Management as per the four roll calender operator during dialysis. 2. Status post debridement of a nonhealing left heel decubitus ulceration. Continue with wound care and antibiotic therapy. 3. End-stage renal disease. Management as per the four roll calender operator. 4. Anemia. The patient's hemoglobin and hematocrit are a little bit low today. The patient is currently on iron supplementation. 5. Hypertension. Controlled. 6. Chronic back pain. Continue on as needed pain medication. 7. Morbid obesity. Aware. 8. Restless leg syndrome. Continue on Requip. 9. Diabetes mellitus type 2. Continue on Lantus per sliding scale insulin. 10. Peripheral arterial disease. Aware. 11. Deep vein thrombosis prophylaxis. Continue on heparin. cc: Maira Gupta MD [facility]
[2016-12-10] MEDS: VANCOMYCIN 1 GM/NS 1 GM/250 ML IVPB IV SCH (20:37)
[2016-12-10] MEDS: ELAVIL PO SCH (21:36)
[2016-12-10] MEDS: ROBAXIN PO SCH (21:36)
[2016-12-10] MEDS: NEURONTIN PO SCH (21:36)
[2016-12-10] MEDS: LANTUS SUBQ SCH (21:36)
[2016-12-11] MEDS: HEPARIN SUBQ SCH ×3 (05:07→21:40)
[2016-12-11] MEDS: HUMALOG SUBQ SCH ×3 (06:35→17:10)
[2016-12-11] MEDS: PRILOSEC PO SCH (06:37)
[2016-12-11 06:54] LABS: HEMATOCRIT 26.4 % (37.0-47.0); HEMOGLOBIN 7.7 g/dL (12.0-16.0); MCH 29.8 PG (27-31); MCHC 29.2 g/dL (33-37); MCV 102.3 FL (81-99); MPV 8.7 FL (7.4-10.4); RBC 2.58 XMIL (4.2-5.4)
[2016-12-11] MEDS ORDERED: HEPARIN IV PRN (06:57)
[2016-12-11] MEDS ORDERED: NS 2,000 ML MISC PRN (06:57)
[2016-12-11] MEDS ORDERED: TIGHT: 0.2 ML/HR MISC PRN (06:57)
[2016-12-11 07:14] LABS: ALBUMIN 2.8 g/dL (3.5-5.0); CALCIUM 8.4 mg/dL (8.8-10.2); POTASSIUM 4.4 mmol/L (3.5-5.1)
[2016-12-11] MEDS: ESTRACE PO SCH (08:19)
[2016-12-11] MEDS: ROCALTROL PO SCH (08:19)
[2016-12-11] MEDS: PERCOCET-10 PO PRN ×3 (08:19→21:54)
[2016-12-11] MEDS: ZOLOFT PO SCH (08:19)
[2016-12-11] MEDS: RENAGEL PO SCH ×3 (08:19→17:11)
[2016-12-11] MEDS: CLARITIN PO SCH (08:20)
[2016-12-11] MEDS: ASPIRIN EC PO SCH (08:20)
[2016-12-11] MEDS: REQUIP PO SCH ×2 (08:20→21:39)
[2016-12-11] MEDS: LOPRESSOR PO SCH ×2 (08:20→21:40)
[2016-12-11] MEDS ORDERED: EPOGEN SUBQ ONE (08:36)
[2016-12-11] MEDS ORDERED: NS 2,000 ML ONE (08:41)
[2016-12-11] MEDS ORDERED: HEPARIN ONE (08:41)
--- NOTE | 2016-12-11 08:58 | PROGRESS NOTE ---
DATE: 12/11/2016 SUBJECTIVE: She states she is feeling progressively better. Her legs are softer and her shortness of breath is improved. She is able to eat. OBJECTIVE: Vital Signs: Blood pressure 126/61, heart rate 88, respirations 19, afebrile. Intake 900 mL. Output 4.7 L. General: On physical exam, no acute distress. Skin: Warm and dry. Eyes: Conjunctivae are pink. Neck: Neck veins are not visible. Heart: Regular, distant. Lungs: Have equal breath sounds. No crackles. Abdomen: Soft, nontender. Bowel sounds present. Extremities: Have 2+ edema. There is still some edema above the knee, but it is minimal and soft. There is no clubbing or cyanosis. LABORATORY DATA: Sodium 137, potassium 4.4, chloride 96, bicarbonate 25. BUN 40, creatinine 5.6, hemoglobin 7.7. IMPRESSION: 1. Volume overload. Continue daily dialysis. I plan to dialyze today and repeat tomorrow. After that, I would be supportive of discharge tomorrow afternoon. 2. End-stage renal disease. Plan as above. 3. Anemia. She is receiving intravenous iron and has been dosed with erythropoietin. We will dose again today with erythropoietin. cc: Dany Fofana MD
--- NOTE | 2016-12-11 11:40 | PROGRESS NOTE ---
DATE: 12/11/2016 SUBJECTIVE: The patient is resting comfortably in the chair. No acute events noted overnight. OBJECTIVE: Vital Signs: Temperature 97.6 degrees, blood pressure 126/61, heart rate 88, respirations 19, O2 saturations 99% on room air. General: This is a morbidly obese female, sitting in a chair, in no acute distress. Head: Normocephalic atraumatic. Heart: S1, S2. Normal. Regular rate and rhythm. Lungs: Equal air entry bilaterally. No crackles. No rales. Abdomen: Positive bowel sounds. Soft, obese, nontender, nondistended. Extremities: 2+ edema. No cyanosis. No calf tenderness. Neurological: Patient is alert and oriented x3. LABS: White blood cell count 10, hemoglobin 7.7, hematocrit 26, platelets 298, 000. Sodium 137, potassium 4.4, chloride 96, CO2 25, BUN 40, creatinine 5.6, glucose 81. ASSESSMENT AND PLAN: 1. Volume overload. Management as per the courier driver during dialysis. 2. Status post debridement of a nonhealing left heel decubitus ulceration. Continue with wound care. 3. End-stage renal disease. Management as per the courier driver. 4. Anemia. Low but stable. 5. Hypertension. Controlled. 6. Chronic back pain. Continue on p.r.n. Percocet. 7. Morbid obesity. Aware. 8. Diabetes mellitus type 2. Continue on Lantus. 9. Restless leg syndrome. Continue on Requip. 10. Deep vein thrombosis prophylaxis. Continue on heparin. cc: Maira Gupta MD [facility]
[2016-12-11] MEDS: VANCOMYCIN 1 GM/NS 1 GM/250 ML IVPB IV SCH (13:37)
[2016-12-11] MEDS: SANTYL OINT TOP SCH (13:38)
[2016-12-11] MEDS ORDERED: INSULIN PEN NEEDLES ONE (16:06)
[2016-12-11] MEDS: NEURONTIN PO SCH (21:40)
[2016-12-11] MEDS: ELAVIL PO SCH (21:40)
[2016-12-11] MEDS: ROBAXIN PO SCH (21:40)
[2016-12-11] MEDS: LANTUS SUBQ SCH (21:41)
[2016-12-12] MEDS: HUMALOG SUBQ SCH ×3 (01:09→13:05)
[2016-12-12] MEDS: HEPARIN SUBQ SCH ×2 (04:57→13:03)
[2016-12-12] MEDS: PERCOCET-10 PO PRN ×2 (04:57→13:15)
[2016-12-12] MEDS: PRILOSEC PO SCH (06:57)
[2016-12-12 07:41] LABS: HEMATOCRIT 30.7 % (37.0-47.0); MCH 29.1 PG (27-31); MCHC 29.3 g/dL (33-37); MCV 99.4 FL (81-99); MPV 8.8 FL (7.4-10.4); RBC 3.09 XMIL (4.2-5.4)
[2016-12-12 07:42] VITALS: BP 119/56
[2016-12-12 07:47] LABS: ALBUMIN 3.9 g/dL (3.5-5.0); CALCIUM 9.1 mg/dL (8.8-10.2); POTASSIUM 4.1 mmol/L (3.5-5.1)
[2016-12-12] MEDS ORDERED: NS 2,000 ML MISC PRN (09:37)
[2016-12-12] MEDS: REQUIP PO SCH (13:03)
[2016-12-12] MEDS: ROCALTROL PO SCH (13:03)
[2016-12-12] MEDS: ZOLOFT PO SCH (13:03)
[2016-12-12] MEDS: ASPIRIN EC PO SCH (13:03)
[2016-12-12] MEDS: CLARITIN PO SCH (13:03)
[2016-12-12] MEDS: ESTRACE PO SCH (13:03)
[2016-12-12] MEDS: LOPRESSOR PO SCH (13:04)
[2016-12-12] MEDS: RENAGEL PO SCH ×2 (13:04→13:05)
--- NOTE | 2016-12-12 14:06 | PROGRESS NOTE ---
DATE: 12/12/2016 SUBJECTIVE: She is complaining of restless leg symptoms in the legs. Otherwise, she is doing well. She is ambulatory without shortness of breath on room air. OBJECTIVE: VITAL SIGNS: Blood pressure 119/56, heart rate 80, respirations 16, afebrile. Intake 1.2 L. Output 5 L. GENERAL: In no acute distress. SKIN: Warm and dry. HEENT: Conjunctivae were pink. NECK: Veins are not visible. HEART: Regular, distant. LUNGS: Equal, clear. ABDOMEN: Obese, soft. Bowl sounds present. EXTREMITIES: Edema is limited to below the knee now. IMPRESSIONS: 1. End-stage kidney disease with volume overload. She has been treated with daily dialysis with progressive improvement in her weight and her symptoms. Okay for discharge. We will change her outpatient dry weight. 2. Anemia. She has received erythropoietin and IV iron. Hemoglobin is better today. 3. Electrolytes/acid base in target. 4. Restless legs. I will defer this to the primary team. She is already receiving gabapentin, ropinirole, and narcotic. cc: Dany Fofana MD
--- NOTE | 2016-12-12 17:13 | DISCHARGE SUMMARY ---
ADMISSION DATE: 12/04/2016 DISCHARGE DATE: 12/12/2016 FINAL DISCHARGE DIAGNOSES: 1. Volume overload. 2. Nonhealing left heal decubitus ulceration, status post debridement. 3. End-stage renal disease. 4. Anemia. 5. Hypertension. 6. Chronic back pain. 7. Morbid obesity. 8. Diabetes mellitus type 2. 9. Restless legs syndrome. CONSULTATIONS REQUESTED DURING THIS HOSPITAL STAY: 1. Nephrology consultation with Dr. Fofana. 2. General Surgery consultation with Dr. Pickett. IMAGING PERFORMED DURING THIS HOSPITAL STAY: 1. Portable chest x-ray performed on 12/04/2016, which revealed chronic elevation of the right hemidiaphragm, with right basilar atelectasis. 2. Lower extremity arterial study performed on 12/07/2016, that revealed significant bilateral femoral popliteal arterial disease and small vessel disease in both lower extremities, left worse than right. PROCEDURES PERFORMED DURING THIS HOSPITAL STAY: 1. Removal of a peritoneal dialysis catheter. 2. Debridement of the skin and subcutaneous tissue of the left heel. HOSPITAL COURSE: Ms. Nelson is a 46-year-old female with a history of multiple medical problems, who initially presented to the ER with a chief complaint of shortness of breath. On presentation, the patient was noted to be volume overloaded. Also at the time, the patient had a peritoneal dialysis catheter in place that was not in use because the patient had been transitioned to hemodialysis. The patient was admitted to the hospitalist service, and Nephrology was consulted for assistance with her dialysis and volume management. The patient was also noted to have a nonhealing wound on her left heel, so Dr. Pickett was consulted. After examining the patient's heel, it was decided that the patient would benefit from debridement of the left heel. The patient also had arterial studies done of her lower extremities, that revealed significant bilateral femoral popliteal disease. The patient was started on vancomycin, which was continued throughout the hospital stay. The patient's blood cultures remained negative. On 12/08/2016, the patient was taken to the OR, at which time of the peritoneal dialysis catheter was removed, and the patient underwent debridement of her left heel. The patient did well postoperatively. Essentially, the patient was dialyzed every day of her hospital stay to decrease her dry weight. The patient was noted to be iron deficient, and received several days of IV Venofer, and was given Epogen as scheduled by the furnace tender. The patient did complain of persistent back pain, and an increase in her restless legs syndrome pain, so the patient was switched to Percocet 10/325 for pain control. The patient continued to improve clinically, and was cleared for discharge home on 12/12/2016. DISCHARGE MEDICATIONS: 1. Percocet 10/325, 1 tab oral every 4 hours p.r.n. for pain. 2. Lopressor 50 mg p.o. twice a day. 3. Lantus 45 units subcutaneous at bedtime. 4. NovoLog sliding scale. 5. Zofran 4 mg p.o. every 6 hours p.r.n. for nausea. 6. Elavil 50 mg p.o. at bedtime. 7. Requip 2 mg p.o. twice a day. 8. Robaxin 500 mg p.o. at bedtime. 9. Zoloft 50 mg p.o. daily. 10. Estradiol 1 mg p.o. daily. 11. Aspirin 81 mg p.o. daily. 12. Renvela 4 tablets oral 3 times a day. 13. Neurontin 100 mg p.o. at bedtime. 14. Prilosec 40 mg p.o. daily. 15. Calcitriol 0.25 mcg oral daily. 16. Claritin 10 mg p.o. daily. DISCHARGE DIET: Renal diabetic diet. ACTIVITY: As tolerated. FOLLOWUP INSTRUCTIONS: The patient will need to follow up with Dr. Pickett in 1 week. The patient will need to continue with her regularly scheduled 3 times a week dialysis sessions. cc: Maira Gupta MD
== END 2016-12-12 15:18 | disposition home health service (06) ==
LOC: ED 17:17 → 3N 21:29 → SUATTDRO 21:29 → 3N 21:30
PROVIDERS: ATTEND Internal Medicine

== ENCOUNTER 2018-10-19 06:22 | Inpatient (IN) ==
[2018-10-19 07:07] LABS: BE -2.5 mmoll (-3.0-3.0); BLOOD TYPE ARTERIAL; METHB 0.5 % (0.0-1.5); O2(CT) 14.2 mL/dL (15.0-23.0); O2HB 95.7 % (95.0-99.0); PCO2(98.6) 39 mmHg (35-45); PO2(98.6) 81 mmHg (60-100); SAMPLE BLOOD; SAO2 97.6 % (95.0-100.0); THB 10.5 g/dL (11.5-17.4); pH(98.6) 7.37 (7.35-7.45)
[2018-10-19 07:08] LABS: ALLEN TEST NO; MODALITY ROOM AIR
[2018-10-19 07:21] LABS: BASO# 0.03 X1000 (0.0-0.2); BASO% 0.4 % (0.0-0.8); EOS# 0.34 X1000 (0.0-0.7); EOS% 4.7 % (0.0-10.0); HEMATOCRIT 37.1 % (37.0-47.0); HEMOGLOBIN 11.5 g/dL (12.0-16.0); IMM GRAN# 0.02 X1000 (0.0-0.04); IMM GRAN% 0.3 % (0.0-0.5); LYMPH# 1.05 X1000 (1.2-3.4); LYMPH% 14.5 % (20.5-51.1); MCH 28.3 PG (27-31); MCV 91.4 FL (81-99); MONO# 0.56 X1000 (0.11-0.59); MONO% 7.7 % (1.7-9.3); MPV 9.4 FL (7.4-10.4); NEUT# 5.25 X1000 (1.4-6.5); NEUT% 72.4 % (42.2-75.2); PLT 196 X1000 (130-400); RBC 4.06 XMIL (4.2-5.4); RDW 15.2 % (11.5-14.5); WBC 7.25 X1000 (4.8-10.8)
--- NOTE | 2018-10-19 07:27 | EKG Report ---
Test Performed on : 10/19/2018 07:14:09 AM Test Reason : malaise Blood Pressure : / mmHG Vent. Rate : 065 BPM Atrial Rate : 070 BPM P-R Int : 170 ms QRS Dur : 076 ms QT Int : 426 ms P-R-T Axes : 000 080 179 degrees QTc Int : 443 ms Normal sinus rhythm. with sinus arrhythmia. Low voltage QRS Anterolateral infarct , age undetermined T wave abnormality, consider inferior ischemia Abnormal ECG When compared with ECG of 10-OCT-2018 07:22, (Unconfirmed) Sinus rhythm. has replaced Ectopic atrial rhythm. Anterolateral infarct is now present Unconfirmed Result
--- NOTE | 2018-10-19 07:29 | Diag Imaging Result Doc PS360 ---
CHEST-PORTABLE - 10/19/2018 INDICATION: malaise COMPARISON: 10/10/2018 FINDINGS: Stable critically low lung volumes. No significant infiltrates or edema. IMPRESSION: Critically low lung volumes. Electronically signed by Fercho Gary 10/19/2018 7:26 AM
[2018-10-19 07:47] LABS: ALB/GLOB RATIO 1.4; ALBUMIN 4.6 g/dL (3.5-5.0); CALCIUM 8.8 mg/dL (8.8-10.2); CREATININE 5.5 mg/dL (0.5-0.9); PHOSPHORUS 5.4 mg/dL (2.7-4.5); POTASSIUM 5.3 mmol/L (3.5-5.1); TOTAL BILIRUBIN 0.38 mg/dL (0.20-1.00); TOTAL PROTEIN 7.9 g/dL (6.3-8.3)
[2018-10-19 07:49] LABS: INR 1.11; PROTIME 15.2 Seconds (11.0-16.0)
--- NOTE | 2018-10-19 08:06 | PROVIDER DOCUMENTATION ---
HPI-General Adult - General Chief Complaint: Return/Recheck Stated Complaint: general Time Seen by Provider: 10/19/18 07:12 Source: patient Allergies/Adverse Reactions: Patient Allergies Allergy/AdvReac Type Severity Reaction Status Date / Time baclofen Allergy DIFFICULTY Verified 07/28/18 10:21 AWAKENING hydralazine Allergy HALLUCINATI Verified 07/28/18 10:21 ONS promethazine [From Phenergan] Allergy DIFFICULTY Verified 07/28/18 10:21 AWAKENING rosuvastatin [From Crestor] Allergy RASH Verified 07/28/18 10:21 caffeine AdvReac Intermediate RAPID Verified 07/28/18 10:21 HEART RATE carvedilol [From Coreg] AdvReac Intermediate RAPID Verified 07/28/18 10:21 HEART RATE cyclobenzaprine HCl * AdvReac Intermediate DIARRHEA Verified 07/28/18 10:21 [From Flexeril] sodium AdvReac Intermediate EXTREME Verified 07/28/18 10:21 SWELLING atorvastatin calcium * AdvReac RASH Verified 07/28/18 10:21 [From Lipitor] clindamycin AdvReac DIARRHEA Verified 07/28/18 10:21 paroxetine [From Paxil] AdvReac Unknown Verified 07/28/18 10:21 trazodone AdvReac HALLUCINATI Verified 07/28/18 10:21 ONS Home Medications: Home Medication List Medication Instructions Recorded Confirmed Last Taken Type Ondansetron HCl [Zofran] 4 mg PO PRN PRN 10/23/16 07/28/18 07/26/18 History Gabapentin 300 mg PO QHS 04/05/17 07/28/18 07/27/18 History Metoprolol [Lopressor] 50 mg PO BID 07/26/17 07/28/18 07/28/18 06:00 History Pantoprazole [Protonix] 40 mg PO DAILY 07/26/17 07/28/18 07/27/18 History Fenofibrate Nanocrystallized 48 mg PO DAILY 01/17/18 07/28/18 07/27/18 History [Tricor] Oxycodone HCl 10 mg PO Q8H PRN PRN 02/02/18 07/28/18 07/27/18 History Ropinirole HCl [Requip] 3 mg PO BID 06/28/18 07/28/18 07/27/18 History Aspirin [Aspir-Low] 81 mg PO DAILY 07/27/18 07/27/18 07/17/18 History Venlafaxine [Effexor] 75 mg PO DAILY 07/27/18 07/28/18 07/27/18 History - History of Present Illness -Gen Adult Nature of Presenting Problems: 48 yoi ESRD AND DIALYSIS , DIBETIC , DOUBLE AMPUTEE FEELS BAD TODAY. DIARRHEA YESTERDAY AND LAST NIGHT. NAUSEA W/O VOMITING. FEELS SOB, NO COUGH NO FEVER. USUALLYDOES NOT HAVE HYPERTENSION ON DIALYSIS DAY. THIS IS A DIALYSIS DAY, PCP DR JIMENEZ. PAST DM BUT TAKEN OFF MEDICATIONS. NO CP. NO FEVER. Review of Systems - Adult - REVIEW OF SYSTEMS - ADULT Constitutional: reports: no symptoms reported, fatique. denies: chills, fever Eyes: reports: no symptoms reported Ears, Nose, Mouth & Throat: reports: no symptoms reported Cardiovascular: reports: no symptoms reported. denies: chest pain, edema, irregular heart rate Respiratory: reports: no symptoms reported. denies: cough Gastrointestinal: reports: no symptoms reported, diarrhea, nausea. denies: abdominal pain Genitourinary: reports: no symptoms reported, other (DOES NOT MAKE URINE). denies: dysuria Musculoskeletal: reports: no symptoms reported Integumentary: reports: no symptoms reported Neurological: reports: no symptoms reported Psychiatric: reports: no symptoms reported Endocrine: reports: no symptoms reported Hematologic/Lymphatic: reports: no symptoms reported Allergic/Immunologic: reports: no symptoms reported All Other Systems: Reviewed and Negative Past History - Adult - PAST MEDICAL HISTORY-ADULT Review of Records: reports: Nursing Assessment Review, Medications Reviewed, Social history reviewed & non-contributory. Major Childhood Illnesses: reports: denies history Cardiovascular: reports: HTN, hyperlipidemia Respiratory: reports: sleep apnea, other (sleep apnea) Gastrointestinal: reports: denies history Obstetrical/Gynecological: reports: denies history Genitourinary: reports: dialysis, kidney disease Musculoskeletal: reports: chronic pain (low back) Neurological: reports: other (diabetic neuropathy) Psychiatric: reports: depression Endocrine/Immune: reports: Diabetes, thyroid disorder (hypothyroid) Other Conditions: reports: denies history - PRIOR SURGERIES/PROCEDURES Surgical/Procedure History: reports: hysterectomy, orthopedic (extremity) (BKA), other (toe nail removal; toe amputation) - PRIOR HOSPITALIZATIONS Prior Hospitalizations: reports: for other non-related - IMMUNIZATION STATUS Childhood Immunizations: See Nurse Assessment Flu Vaccine: See Nurse Assessment - FAMILY HISTORY Family History: reviewed, not pertinent Physical Exam-General - PHYSICAL EXAM-ADULT Initial Vital Signs Reviewed: Yes (HYPERTENSION) - CONSTITUTIONAL General Appearance: alert, mild distress - EYES Eyes: PERRL/EOMI - HEAD, EARS, NOSE, MOUTH & THROAT HENMT: normocephalic/atraumatic, moist mucous membranes - NECK Neck: supple - RESPIRATORY Respiratory: lungs clear, normal breath sounds, no accessory muscle use - CARDIOVASCULAR Cardiovascular: regular rate, rhythm, no JVD, no murmur - GASTROINTESTINAL (ABDOMEN) Abdominal Exam: normal bowel sounds, non tender, soft - MUSCULOSKELETAL Back Exam: normal inspection, no CVA tenderness, no vertebral tenderness Extremity: other (DOUBLE AMBUTEE). 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 nml as tested, grossly normal, no motor/sensory deficits - PSYCHIATRIC Psych/Mental Status: normal mood/affect, normal thought content, normal thought process, oriented x 3 Progress - PLAN OF CARE/RESULTS Progress/Plan/Lab Results: Vital Signs - 8 hr 10/19/18 06:35 10/19/18 06:36 10/19/18 07:10 Temperature 98 F Pulse Rate 66 66 65 Respiratory Rate 22 19 22 Blood Pressure 175/106 175/106 O2 Sat by Pulse Oximetry 97 97 95 Laboratory Results - last 24 hr 10/19/18 10/19/18 10/19/18 06:57 07:01 07:01 WBC 7.25 RBC 4.06 L Hgb 11.5 L Hct 37.1 MCV 91.4 MCH 28.3 MCHC 31.0 L RDW Std Deviation 15.2 H Plt Count 196 MPV 9.4 Immature Gran % (Auto) 0.3 Neut % (Auto) 72.4 Lymph % (Auto) 14.5 L [place] % (Auto) 7.7 Eos % (Auto) 4.7 Baso % (Auto) 0.4 Immature Gran # (Auto) 0.02 Neut # (Auto) 5.25 Lymph # (Auto) 1.05 L [place] # (Auto) 0.56 Eos # (Auto) 0.34 Baso # (Auto) 0.03 PT INR Specimen Type ARTERIAL Sample Site R BRACHIAL pH 7.37 pCO2 39 pO2 81 HCO3 23.0 Base Excess -2.5 Oxyhemoglobin 95.7 ABG O2 Sat (Calculated) 14.2 L ABG O2 Saturation 97.6 ABG Carboxyhemoglobin 1.40 ABG Methemoglobin 0.5 Feroz Test NO A-a O2 Difference 20.0 Total Hemoglobin 10.5 L Lactate 0.80 Blood Gas Modality ROOM AIR FiO2 % 21.0 Sodium 133 L Potassium 5.3 H Chloride 93 L Carbon Dioxide 28 Anion Gap 12 BUN 73 H Creatinine 5.5 H Estimated GFR/1.73 m2 8 BUN/Creatinine Ratio 13 Glucose 182 H Calculated Osmolality 293 Calcium 8.8 Phosphorus 5.4 H Magnesium 2.0 Total Bilirubin 0.38 AST 11 ALT 9 L Alkaline Phosphatase 97 Creatine Kinase 122 Troponin T Total Protein 7.9 Albumin 4.6 Globulin 3.3 Albumin/Globulin Ratio 1.4 10/19/18 10/19/18 07:01 07:33 WBC RBC Hgb Hct MCV MCH MCHC RDW Std Deviation Plt Count MPV Immature Gran % (Auto) Neut % (Auto) Lymph % (Auto) [place] % (Auto) Eos % (Auto) Baso % (Auto) Immature Gran # (Auto) Neut # (Auto) Lymph # (Auto) [place] # (Auto) Eos # (Auto) Baso # (Auto) PT 15.2 INR 1.11 Specimen Type Sample Site pH pCO2 pO2 HCO3 Base Excess Oxyhemoglobin ABG O2 Sat (Calculated) ABG O2 Saturation ABG Carboxyhemoglobin ABG Methemoglobin Feroz Test A-a O2 Difference Total Hemoglobin Lactate Blood Gas Modality FiO2 % Sodium Potassium Chloride Carbon Dioxide Anion Gap BUN Creatinine Estimated GFR/1.73 m2 BUN/Creatinine Ratio Glucose Calculated Osmolality Calcium Phosphorus Magnesium Total Bilirubin AST ALT Alkaline Phosphatase Creatine Kinase Troponin T 0.088 Total Protein Albumin Globulin Albumin/Globulin Ratio Orders Category Date Time Status Finger Stick Blood Sugar (ED) DIRECTED Care 10/19/18 06:39 Active Nursing- Obtain EKG once Care 10/19/18 06:39 Active Saline Loc NOW Care 10/19/18 06:39 Active CHEST-PORTABLE [RAD] Stat Exams 10/19/18 06:40 Completed ABG [RESP] Routine Lab 10/19/18 06:57 Completed CBC WITH ELECTRONIC DIFF [HEME] Stat Lab 10/19/18 07:01 Completed CK PROFILE [SP CHEM] Stat Lab 10/19/18 07:01 Completed COMPREHENSIVE METABOLIC PANEL [CHEM] Stat Lab 10/19/18 07:01 Completed MAGNESIUM [CHEM] Stat Lab 10/19/18 07:01 Completed PROTIME WITH INR [COAG] Stat Lab 10/19/18 07:33 Completed TROPONIN T Stat Lab 10/19/18 07:01 Completed phos [PHOSPHORUS] [CHEM] Stat Lab 10/19/18 07:01 Completed EKG [EKG] Stat Ther 10/19/18 06:39 Draft Result Diagrams: 10/19/18 07:01 10/19/18 07:01 - EKG 1 Time of EKG reading by physician:: 07:26 EKG Read and Signed by:: Elton Kirkpatrick EKG Interpretation (*Must complete 3 of following elements*): Abnormal Rate: 65 Rhythm: SINSUS [place]: normal QRS: normal NC Interval: normal ST Wave: non-specific ST changes (LOW COLTAGE QRS,ANTEROLAT INFARCT,AGE?,T WAVE ABNL) - XRAY 1 Impression: Normal, See EMR Report - CONSULTS/PCP/HOSPITALIST Notification #1 *Consult/PCP/Hospitalist*: [facility] Time Discussed: 08:39 Consult Disposition: Admit (OBSERVATION) Departure - Departure Date of Disposition Decision: 10/19/18 Time of Disposition Decision: 08:35 DIAGNOSIS: Shortness of breath, Morbid (severe) obesity due to excess calories, Nausea, Diarrhea Disposition: ADMITTED INPATIENT 09 Certified Medical Emergency: Emergent Condition: Stable Referrals and Follow-Ups: Silverio Welch MD [Primary Care Provider] - - Critical Care Note This patient required my direct & personal management of CC.: No Attestation - Physician/ DELBERT Attestation Patient care was provided by Advanced Practice Provider:: No The physician spent face to face time with patient:: Yes Advanced Practice Provider documentation review:: Supervising physician onsite and consulted in the evaluation and care of this patient. The physician did have a face to face encounter with the patient.
[2018-10-19] MEDS ORDERED: TYLENOL PO PRN (09:00)
[2018-10-19] MEDS ORDERED: ZOFRAN IV PRN (09:00)
[2018-10-19] MEDS: PRILOSEC PO SCH (09:51)
--- NOTE | 2018-10-19 10:07 | Diag Imaging Result Doc PS360 ---
KUB ABDOMEN - 10/19/2018 INDICATION: n/v diarrhea COMPARISON: 07/06/2018 FINDINGS: There is a nonobstructive bowel gas pattern. No free air or abdominal calcifications. IMPRESSION: No acute disease. Electronically signed by Fercho Gary 10/19/2018 10:04 AM
[2018-10-19] MEDS: HUMULIN R SUBQ SCH ×3 (10:42→21:57)
[2018-10-19] MEDS ORDERED: HEPARIN IV PRN (11:04)
[2018-10-19] MEDS ORDERED: TIGHT: 0.2 ML/HR FOR DIALYSIS MISC PRN (11:04)
[2018-10-19] MEDS ORDERED: NS 2,000 ML MISC PRN (11:04)
--- NOTE | 2018-10-19 11:42 | HISTORY AND PHYSICAL ---
ADDENDUM: In brief, Ms. Nelson is a 48-year-old lady with past medical history of morbid obesity, insulin-dependent diabetes mellitus which resolved about 2 years ago, end-stage renal disease likely from diabetic nephropathy on Wednesday, Wednesday, Wednesday hemodialysis, bilateral below-knee amputations, hypothyroidism, obstructive sleep apnea, currently using only nighttime oxygen since her CPAP machine broke, diabetic neuropathy, depression and chronic pain, who came in with chief complaints of nausea, vomiting, and diarrhea of about 1 day duration. Apparently, patient has been having episodes of nausea, vomiting, and loose stools intermittently since past 6 months. These episodes come without any identifiable trigger. She does not seek any medical attention for that. She has never been diagnosed with diabetic gastroparesis, though she does have advanced diabetic neuropathy for which she takes gabapentin. Since yesterday, she ate some egg noodles. Since then she has been having some nausea, though she did not really have vomiting. She did throw up some mucoid material without any blood or food contents, and her diarrhea is ongoing multiple times a day as loose watery stools. With these complaints she came to the emergency room. Though she was hemodynamically stable, she was found to have electrolyte abnormalities with hyponatremia, hyperkalemia, hypochloremia, and she was in significant subjective distress. So, the hospitalist team was consulted for further management. SUBJECTIVE: At the time of my evaluation, the patient still is feeling sick in her stomach. She denies known history of gallbladder disease. VITALS: Temperature 97.3 degrees, pulse 66, respiratory rate 16, blood pressure 150/60, saturating 100% on room air. PHYSICAL EXAMINATION: GENERAL: In mild distress because of abdominal discomfort and nausea. Oral cavity is moist morbidly obese. No pallor, cyanosis, clubbing, or icterus. LUNGS: Air entry bilaterally equal. No wheeze, rhonchi, crackles. CARDIOVASCULAR: S1, S2 normal. Not tachycardic. No murmur, rub, or gallop. ABDOMEN: Soft. Mild generalized tenderness without any guarding or rigidity. EXTREMITIES: She has bilateral lower below-knee amputation. Left upper extremity has AV fistula with palpable thrill. She does have previously healed ulcers affecting her left hand. LABS: Suggestive of no leukocytosis, normocytic anemia, normal platelet count. Normal INR, normal ABG. She does have hyponatremia, hyperkalemia, hypochloremia, elevated BUN and creatinine, hyperphosphatemia. MICROBIOLOGY: No data. IMAGING: Abdominal x-ray did not have any acute abnormalities. Chest x-ray had low lung volumes. Abdominal ultrasound is pending. ASSESSMENT: 1. Nausea, abdominal pain and diarrhea. Differential includes acute viral gastroenteritis with diabetic neuropathy affecting gastrointestinal system with suspicion of diabetic gastroparesis. 2. Hyponatremia, hypochloremia, hypokalemia and uremia in the setting of end- stage renal disease. 3. Hypothyroidism. 4. Essential hypertension. 5. Chronic pain disease, chronic pain disorder, depression, opioid use, hyperlipidemia. PLAN: Follow-up ultrasound abdomen to rule out any choledocholithiasis. Also, follow up lipase and amylase levels to rule out any pancreatitis, the suspicion of which is very less at the moment. If the ultrasound of abdomen is negative, then I would consider gastric emptying study. Meanwhile, I will continue her on insulin sliding scale insulin as needed, though she is not taking any insulin at home, and her home medications including metoprolol for essential hypertension, gabapentin for diabetic peripheral neuropathy, and I will consult Nephrology for dialysis which she takes Wednesday, Wednesday, Wednesday routinely. Plan of care discussed with her. All of her questions have been answered. cc: MD SAMUEL Acosta
--- NOTE | 2018-10-19 12:39 | HISTORY AND PHYSICAL ---
PRIMARY CARE PHYSICIAN: Silverio Welch MD. CHIEF COMPLAINT: Nausea, vomiting, diarrhea. HISTORY OF PRESENT ILLNESS: Ms. Nelson is a 48-year-old female who presents to the ER today with complaints of stomach cramping with nausea, vomiting and diarrhea where she cannot even lift her head up. She states she is shaking and can hardly walk. She states this started last p.m. She states that this morning she was unable to hardly walk, so she decided to come to [facility] ER. The patient is an end stage renal disease patient and is currently receiving dialysis Wednesday, Wednesday and Wednesday by Dr. Fofana. She was supposed to have dialysis today but was unable to go to dialysis because she was too sick. Upon presentation to the ER, the patient is lethargic. She has vomited a few times in the ER. She states she is not having any blood when she vomits or any blood in her stool. Sometimes her stool is a little foamy in consistency, but there is mostly just bile content. When she vomits, it is mostly bile content. The patient states she has been able to take all her medications. When asked if she takes anything for phosphorus binder for her dialysis, she states that she does; but when looking at her home medication list, I do not see anything that binds the phosphorus. Laboratory findings in the ER show potassium of 5.3 with creatinine of 5.5 and phosphorus of 5.4. Glucose is currently 157. White blood cell count is within normal range. The abdomen is tender to palpation, especially to the right side. I have ordered a KUB and an ultrasound of the abdomen to be performed. PAST MEDICAL HISTORY: Insomnia, end-stage renal disease currently receiving dialysis Wednesday, Wednesday and Wednesday by Dr. oFfana, diabetes, hypertension, obesity, pickwickian syndrome, chronic low back pain, diabetic neuropathy, depression, hypothyroidism, anemia of chronic disease. PAST SURGICAL HISTORY: Hysterectomy, bilateral BKA, toenail removal to bilateral big toes, bilateral toe amputations, some kind of abdominal wall mass surgery. FAMILY HISTORY: Mother has passed. She from a heart attack. She also had diabetes. Two sisters and a brother have also had ND, and they are still living. Father is still living, and he has heart issues and arthritis. SOCIAL HISTORY: She lives with her [id number] and sister in [place]. She denies any smoking, alcohol or illicit drug abuse. ALLERGIES: Baclofen, hydralazine, promethazine, rosuvastatin, caffeine, carvedilol, cyclobenzaprine, atorvastatin, clindamycin, Paxil and Trazodone. HOME MEDICATIONS: 1. Aspirin 81 mg p.o. daily. 2. Tricor 48 mg p.o. daily. 3. Gabapentin 300 mg p.o. q bedtime. 4. Metoprolol 50 mg p.o. b.i.d. 5. Zofran ODT 4 mg p.o. p.r.n. 6. Oxycodone 10 mg p.o. q 8 hours p.r.n. 7. Protonix 40 mg p.o. daily. 8. Requip 3 mg p.o. b.i.d. 9. Effexor 75 mg p.o. daily. LABORATORY: WBC 7.25, hemoglobin 11.5, hematocrit 37.1, platelet count 196,000, PT 15.2, INR 1.11, pH 7.37, CO2 39, O2 81, bicarb 23.0, oxyhemoglobin 95.7--all of this was obtained on room air. Sodium 133, potassium 5.3, chloride 93, carbon dioxide 28, BUN 73, creatinine 5.5, GFR 8, glucose 182, calcium 8.8, phosphorus 5.4, magnesium 2.0, bilirubin 0.38, AST 11, ALT 9, alkaline phosphate 97, creatinine kinase 122, troponin 0.08. DIAGNOSTICS: Chest x-ray done on 10/19/2018 in the ER shows critically low lung volumes. REVIEW OF SYSTEMS: A 12-point review of systems was performed and all are negative except as stated above in the HPI. PHYSICAL EXAMINATION: VITAL SIGNS: Temperature 97.7, pulse rate 62, respiratory rate 16, blood pressure 175/106, O2 sat 97%, weight 244, height 4.6. GENERAL: This is a 48-year-old female who is lying in the ER stretcher. She is well-nourished, morbidly obese, very short stature and very weak at present time. HEENT: Atraumatic, normocephalic. Pupils are equal, round and reactive. Mucous membranes are moist. NECK: Supple. No lymphadenopathy. Trachea is midline. JVD negative. CARDIOVASCULAR: No murmur, gallop or rub noted. Regular rate and rhythm. RESPIRATORY: Lungs sounds are clear. Respirations are nonlabored with no accessory muscle usage. GASTROINTESTINAL: Abdomen is tender to the right side. Bowel sounds are present. Abdomen is round but not distended. The patient has some complaints of nausea. NEUROLOGICAL: The patient is awake, alert and oriented, seems to be little lethargic but is able to answer questions appropriately and stay awake while I am in the room. Cranial nerves intact. MUSCULOSKELETAL: Generalized weakness noted. Able to follow all commands. No deformities. She does have bilateral BKA and able to move all extremities. EXTREMITIES: No clubbing, cyanosis or edema. All pulses noted. Bilateral BKA. Able to feel popliteal pulses. SKIN: Warm, dry and intact. No rashes or bruises noted. ASSESSMENT: 1. Gastroparesis. 2. Morbid obesity. 3. End-stage renal disease. 4. Diabetes. 5. Hypertension. 6. Generalized weakness. PLAN: We will admit this patient to the medical floor. We will place on inseamer. We will consult Dr. Fofana for dialysis. We will order an ultrasound of the abdomen and KUB of the abdomen and reorder labs for in the morning. We will give the patient IV Zofran for nausea. Home medications reordered. Hold the patient n.p.o. at present time. Dictated by CALI Foster for Yash Mccoy MD cc: Dany Fofana MD I agree with most components of history, physical, assessment and plan. A separate addendum has been dictated. SAMUEL
[2018-10-19] MEDS: OXY IR PO PRN (17:06)
[2018-10-19] MEDS: DUONEB (A & A) INH SCH ×2 (17:33→20:10)
--- NOTE | 2018-10-19 21:56 | NEPHROLOGY CONSULTATION ---
DATE: 10/19/2018 TIME SEEN: 0700 hours. REQUESTING PHYSICIAN: Dr. Landry; I was contacted directly. REASON FOR CONSULTATION: Assistance with management. HISTORY OF PRESENT ILLNESS: Ms. Nelson is a 48-year-old white female who is well known to us. She has diabetes, ESRD, hypertension, obesity, pickwickian syndrome, etc. She has bilateral lower leg amputations for peripheral vascular disease. She has multiple trips to the emergency room for somatic complaints. Today was her normal dialysis day, but instead of coming to the clinic she came to the hospital, stating "I just didn't feel right." She describes being somewhat dizzy and having difficulty holding herself upright. She described vomiting and diarrhea to the ER staff, but by my history she said these things were no different than her normal. She has frequent problems with hyperkalemia, but states her symptoms are different this time. No chills, fever, sweats, night sweats, cough, sputum, etc. PAST MEDICAL HISTORY: As above. She also has hypothyroidism, anemia and depression. MEDICATIONS: Home medications include aspirin, TriCor, gabapentin, metoprolol, Zofran, oxycodone, Protonix, Requip, Effexor. ALLERGIES: Baclofen, hydralazine, promethazine, rosuvastatin. SOCIAL HISTORY: She lives with her sister in [place]. They are her primary source of support. No current alcohol or tobacco. FAMILY HISTORY: Otherwise noncontributory. REVIEW OF SYSTEMS: Otherwise noncontributory. PHYSICAL EXAMINATION: Blood pressure 155/63, heart rate 66, respirations 16, afebrile. Generally, morbidly obese white female sitting up in bed. Lethargic, but in no acute distress. Skin is warm and dry, somewhat pale. Multiple tattoos. Conjunctivae are pink. Pupils are equal. Oropharynx is dry. Neck is supple. Trachea is midline. Neck veins are not discernible. PMI is not palpable. Regular rate and rhythm without murmurs, rubs or gallops. Lungs have equal excursion, equal breath sounds, shallow. No crackles or wheezes. Abdomen obese, soft, nontender. Bowel sounds present. Extremities: No edema, clubbing or cyanosis. IMPRESSION: 1. Chronic kidney disease 5D. She is due for dialysis today. She was re-examined during her dialysis treatment at 1505 hours. Tolerating well. 2. Electrolytes: Modest hyperkalemia with potassium 5.3. Addressed with dialysis today; 2 potassium bath. No acidosis. Anemia is within target. Blood pressure is within target. No changes from my perspective. We will continue our routine medical care. cc: Dany Fofana MD
[2018-10-19] MEDS: REQUIP PO SCH (21:58)
[2018-10-19] MEDS: LOPRESSOR PO SCH (21:58)
[2018-10-19] MEDS: NEURONTIN PO SCH (21:58)
[2018-10-20] MEDS: OXY IR PO PRN ×3 (02:01→21:15)
[2018-10-20] MEDS: DUONEB (A & A) INH SCH ×4 (03:30→21:20)
[2018-10-20 06:24] LABS: BASO# 0.02 X1000 (0.0-0.2); BASO% 0.3 % (0.0-0.8); EOS# 0.32 X1000 (0.0-0.7); EOS% 5.6 % (0.0-10.0); HEMATOCRIT 33.7 % (37.0-47.0); HEMOGLOBIN 10.3 g/dL (12.0-16.0); LYMPH# 1.26 X1000 (1.2-3.4); MCH 28.1 PG (27-31); MCHC 30.6 g/dL (33-37); MCV 91.8 FL (81-99); MONO# 0.45 X1000 (0.11-0.59); MONO% 7.9 % (1.7-9.3); MPV 9.3 FL (7.4-10.4); NEUT# 3.68 X1000 (1.4-6.5); NEUT% 64.2 % (42.2-75.2); PLT 204 X1000 (130-400); RBC 3.67 XMIL (4.2-5.4); WBC 5.73 X1000 (4.8-10.8)
[2018-10-20 06:48] LABS: CALCIUM 8.6 mg/dL (8.8-10.2); CREATININE 3.9 mg/dL (0.5-0.9); MAGNESIUM 1.7 mg/dL (1.5-2.7); PHOSPHORUS 4.2 mg/dL (2.7-4.5); POTASSIUM 3.9 mmol/L (3.5-5.1)
--- NOTE | 2018-10-20 08:56 | Diag Imaging Result Doc PS360 ---
EXAM: US ABDOMEN-COMPLETE HISTORY: abdominal pain, diarrhea, nausea TECHNIQUE: Abdominal ultrasound COMPARISON: None. FINDINGS: Suboptimal exam due to the patient's body habitus. Normal pancreatic body. The head and tail are obscured. The aorta and inferior vena cava are also obscured. There is fatty infiltration of the liver. It is difficult to penetrate the liver. The common bile duct measures 6 mm. There are several stones within the gallbladder. The gallbladder wall is not thickened. There is cortical thinning to the right kidney. No hydronephrosis. Normal spleen. No ascites. There is also cortical thinning to the left kidney. No hydronephrosis. IMPRESSION: 1.Fatty infiltration of the liver 2.Cholelithiasis 3.Cortical renal thinning which can be seen with medical renal disease Electronically signed by Issa Cook 10/20/2018 8:54 AM
[2018-10-20] MEDS: LOPRESSOR PO SCH ×2 (08:59→21:16)
[2018-10-20] MEDS: EFFEXOR PO SCH (08:59)
[2018-10-20] MEDS: PRILOSEC PO SCH (08:59)
[2018-10-20] MEDS: ASPIRIN EC PO SCH (08:59)
[2018-10-20] MEDS: TRICOR PO SCH (09:00)
[2018-10-20] MEDS: REQUIP PO SCH ×2 (09:00→21:15)
[2018-10-20] MEDS: HUMULIN R SUBQ SCH ×3 (11:35→21:14)
--- NOTE | 2018-10-20 15:56 | PROGRESS NOTE ---
DATE: 10/20/2018 SUBJECTIVE: Today Ms. Nelson referred to be doing fairly okay. Is not more nauseated, but because she has not eaten anything. OBJECTIVE: Vital signs: Blood pressure is 165/65, pulse of 65, respirations 12, temperature 97.9. Patient is saturating 96% on room air. General: Ms. Nelson is a 48-year-old female. She is in bed. She is a double amputee. She is not in any cardiopulmonary distress. HEENT: Mucosa is pink and moist. Anicteric. Acyanotic. Neck: Supple. Chest: Good air entry bilateral. There were no crepitations. No rhonchi. Cardiovascular: Regular rate and rhythm. Abdomen: Soft. Extremities: Double BKA. CIRCUS ARTIST: Patient is awake, alert, and oriented. LABORATORY DATA: Has all been reviewed. IMAGING STUDIES: Show an ultrasound of the abdomen today showing fatty liver disease. Cholelithiasis. ASSESSMENT: 1. Intractable nausea and vomiting on presentation with imaging studies, suggestive of cholelithiasis. Unsure if this is causing some of her symptoms. We will do a HIDA scan to see the functioning of the gallbladder and consult surgery accordingly. 2. Cholelithiasis. There is no acute cholecystitis. However, with the intractable nausea and vomiting. It is very possible Ms. Nelson has chronic cholecystitis with nonfunctioning gallbladder, so we will get a HIDA scan and get surgery accordingly. 3. End-stage renal disease, on hemodialysis. Nephrology is on board. 4. History of diabetes mellitus, complicated with peripheral and autonomic neuropathy. 5. Hypothyroidism. Will continue with supplements. cc: Louis Sullivan MD
[2018-10-20] MEDS ORDERED: AYR NASAL SPRAY NAS PRN (16:05)
--- NOTE | 2018-10-20 16:39 | NEPHROLOGY PROGRESS NOTE ---
DATE: 10/20/2018 SUBJECTIVE: No further nausea, vomiting, diarrhea. She is awake alert. Hoping for discharge. OBJECTIVE: Vital Signs: Blood pressure 177/63, heart rate 73, respirations 24, afebrile. General: No acute distress. Skin: Warm and dry. Eyes: Pupils are equal. Neck: Neck veins are not distended. Heart: Regular, distant. Lungs: Equal. No crackles. Abdomen: Soft, nontender. Bowel sounds present. Extremities: No edema, clubbing or cyanosis. IMPRESSION: 1. Chronic kidney disease 5 D. Euvolemic. 2. Electrolytes/acid base in target. No dialysis today. 3. Hypertension is above target. Improved significantly from admission as her home medications have been restarted. Continue current care. Okay for discharge from my perspective when the primary team is ready. cc: Dany Fofana MD
[2018-10-20] MEDS: LABETALOL IV PRN (21:15)
[2018-10-20] MEDS: NEURONTIN PO SCH (21:16)
[2018-10-21] MEDS: DUONEB (A & A) INH SCH ×4 (03:25→21:25)
[2018-10-21] MEDS: LABETALOL IV PRN (05:45)
[2018-10-21 06:23] LABS: HEMATOCRIT 31.2 % (37.0-47.0); HEMOGLOBIN 9.5 g/dL (12.0-16.0); MCH 28.5 PG (27-31); MCHC 30.4 g/dL (33-37); MCV 93.7 FL (81-99); MPV 9.4 FL (7.4-10.4); RBC 3.33 XMIL (4.2-5.4); RDW 15.1 % (11.5-14.5); WBC 5.16 X1000 (4.8-10.8)
[2018-10-21 06:54] LABS: ALBUMIN 3.7 g/dL (3.5-5.0); CALCIUM 8.3 mg/dL (8.8-10.2); CREATININE 5.1 mg/dL (0.5-0.9); PHOSPHORUS 5.7 mg/dL (2.7-4.5); POTASSIUM 4.3 mmol/L (3.5-5.1)
[2018-10-21] MEDS ORDERED: HEPARIN IV PRN (07:34)
[2018-10-21] MEDS ORDERED: TIGHT: 0.2 ML/HR FOR DIALYSIS MISC PRN (07:34)
[2018-10-21] MEDS ORDERED: NS 2,000 ML MISC PRN (07:34)
--- NOTE | 2018-10-21 09:03 | Diag Imaging Result Doc PS360 ---
HIDA SCAN W/ EJECTION FRACTION - 10/21/2018 INDICATION: chronic cholecystitis COMPARISON: None FINDINGS: 5.5 millicuries of Choletec was administered. There is normal uptake and clearance by the liver. There is normal excretion into the gallbladder and small bowel. A fatty meal was given. The gallbladder ejection fraction is 7%. IMPRESSION: Negative for acute cholecystitis. Subnormal gallbladder ejection fraction compatible with chronic cholecystitis or biliary dyskinesia. An abnormally low ejection fraction (less than 35%) can be present in patients without gallbladder dyskinesis or chronic cholelithiasis to have other medical conditions. These include but are not limited to, patients with diabetic mellitus, irritable bowel syndrome, , gastroenteritis. peptic ulcer disease, and patients receiving morphine or nifedipine. Electronically signed by Fercho Gary 10/21/2018 9:00 AM
[2018-10-21] MEDS: TRICOR PO SCH (09:17)
[2018-10-21] MEDS: LOPRESSOR PO SCH (09:17)
[2018-10-21] MEDS: PRILOSEC PO SCH (09:17)
[2018-10-21] MEDS: EFFEXOR PO SCH (09:18)
[2018-10-21] MEDS: REQUIP PO SCH ×2 (09:18→22:07)
[2018-10-21] MEDS: ASPIRIN EC PO SCH (09:18)
[2018-10-21] MEDS: OXY IR PO PRN ×2 (10:22→18:44)
[2018-10-21] MEDS: HUMULIN R SUBQ SCH ×3 (11:34→22:09)
--- NOTE | 2018-10-21 15:06 | PROGRESS NOTE ---
DATE: 10/21/2018 SUBJECTIVE: This morning Ms. Nelson referred to be doing okay and she has some nauseation but no abdominal pain. She says she also has some loose bowel. OBJECTIVE: Vital signs: Blood pressure is 145/81, pulse of 75, respirations 16, temperature 98.6 degrees. General: Ms. Nelson is a 45-year-old female. She is in bed no distress. HEENT: Mucosa is pink and moist. Anicteric. Acyanotic. Neck: Supple. Chest: Good air entry bilateral. There was no crepitations, no rhonchi. Cardiovascular: Regular rate and rhythm. No murmurs, no rubs, no gallops. Abdomen: Soft, nontender. Bowel sounds present. Extremities: There is bilateral below knee amputation. BUSINESS INSTRUCTOR: BUSINESS INSTRUCTOR patient is awake, alert, and oriented. LABORATORY DATA: WBC is 5.16, hemoglobin is 9.5, platelet count of 190,000. Chemistry is also reviewed, all consistent with renal failure. ASSESSMENT: 1. Intractable nausea and vomiting on presentation which has improved. 2. Cholelithiasis with chronic cholecystitis. HIDA scan shows ejection fraction of about 7%. We will get surgery consult. 3. Endstage renal disease, on hemodialysis. Nephrology is on board. 4. Diabetes mellitus complicated with peripheral neuropathy and autonomic enteropathy noted. 5. Hypothyroidism will continue with levothyroxine. 6. Chronic troponin elevation noted. PLAN: Sane general Ms. Nelson seems to be fairly stable. She denies any shortness of breath or any chest pain. Her HIDA scan is remarkably abnormal, so we will getting surgery to evaluate her. cc: Louis Sullivan MD
--- NOTE | 2018-10-21 17:15 | NEPHROLOGY PROGRESS NOTE ---
DATE: 10/21/2018 SUBJECTIVE: She is in Nuclear Medicine. She is having just completed gallbladder HIDA scan. No vomiting this morning. No shortness of breath etc. She is due for dialysis. OBJECTIVE: Vital Signs: Blood pressure 161/65, heart rate 71, respirations 22, afebrile. General: No acute distress. Skin: Warm and dry. Neck: Neck veins are not visible. Heart: Regular. Lungs: Equal. Abdomen: Benign. Extremities: No edema. IMPRESSION: 1. Chronic kidney disease 5D. Dialysis today. Electrolytes/acid base/volume status on target. 2. Anemia: Hemoglobin has trended downward from 11.5 to 9.5. No obvious bleeding. Observe. 3. Hypertension above target. I will change her outpatient metoprolol over to carvedilol. 4. Possible gallbladder disease. Defer to the primary team. cc: Dany Fofana MD
[2018-10-21] MEDS: COREG PO SCH (22:07)
[2018-10-21] MEDS: NEURONTIN PO SCH (22:07)
--- NOTE | 2018-10-22 00:07 | GENERAL SURGERY CONSULTATION ---
DATE: 10/21/2018 HISTORY OF PRESENT ILLNESS: This is a 48-year-old female with multiple medical issues. She was admitted with vague GI complaints in the . She has end-stage renal disease on dialysis. She has had vomiting, diarrhea but these have improved while she has been in the hospital and now she mostly complains of diarrhea which has been persistent for some time. She had a ultrasound that showed gallstones but no cholecystitis and depressed ejection fraction on HIDA scan. MEDICAL HISTORY: End-stage renal disease on dialysis Wednesday, Wednesday, Wednesday, diabetes, hypertension, obesity, she has had bilateral below-knee amputations, chronic pain, neuropathy, depression, hypothyroidism, anemia, insomnia. SURGICAL HISTORY: Hysterectomy, bilateral below-knee amputations, prior to that toe amputations and abdominal wall mass surgery. SOCIAL HISTORY: No tobacco, alcohol, drugs. FAMILY HISTORY: Reviewed. REVIEW OF SYSTEMS: 10 point negative other than HPI PHYSICAL EXAMINATION: Temperature 98.8 degrees, pulse 86, blood pressure 149/68, oxygen saturation is 93%.General: She is alert, chronically ill-appearing in no acute distress. She is eating dinner. HEENT: No scleral icterus. No cervical mass. Cardiovascular: Normal rate. Pulmonary: No increased work of breathing. Abdomen: Soft, nontender, nondistended. Integument: Is warm, dry. Psychiatric: Appropriate affect. Musculoskeletal: She has got bilateral below-knee amputations with no edema. No wounds. Psychiatric: Appropriate affect. Neurologic: No gross deficits. LABS: White count 5, hematocrit 31. LFTs were normal on admission. Creatinine is 5.1, glucose as high as 197. Troponins been gradually up trending since her admission, lipase 130s. I reviewed her HIDA scan, her ultrasound. ASSESSMENT AND PLAN: This is a 48-year-old female with multiple medical issues. She has gallstones. Unclear if the symptoms related to this or this more of an enteritis type process. Given that her main symptom is diarrhea I have recommended infectious workup for this and observation from a surgical standpoint, we can follow her as an outpatient. I talked to Dr. Sullivan about this otherwise I have encouraged remain a low-fat diet. cc: Mason Houston MD [facility]
--- NOTE | 2018-10-22 00:09 | GENERAL SURGERY CONSULTATION ---
DATE: 10/21/2018 HISTORY OF PRESENT ILLNESS: This is a 48-year-old female with extensive medical history. She has a history of poorly controlled diabetes, endstage renal disease on dialysis, INCOMPLETE REPORT -- DICTATION ENDS HERE. cc: Mason Houston MD
[2018-10-22] MEDS: DUONEB (A & A) INH SCH ×2 (03:40→08:41)
[2018-10-22] MEDS: OXY IR PO PRN ×2 (04:01→12:45)
[2018-10-22] MEDS: HUMULIN R SUBQ SCH ×2 (06:40→11:39)
[2018-10-22] MEDS: EFFEXOR PO SCH (08:13)
[2018-10-22] MEDS: COREG PO SCH (08:13)
[2018-10-22] MEDS: REQUIP PO SCH (08:13)
[2018-10-22] MEDS: PRILOSEC PO SCH (08:13)
[2018-10-22] MEDS: ASPIRIN EC PO SCH (08:13)
[2018-10-22] MEDS: TRICOR PO SCH (08:13)
[2018-10-22 12:07] VITALS: BP 143/60
--- NOTE | 2018-10-22 18:45 | GENERAL SURGERY PROGRESS NOTE ---
DATE: 10/22/2018 SUBJECTIVE: Doing okay. No abdominal pain overnight. No vomiting. No fevers. No tachycardia. OBJECTIVE: Blood pressure 142/51. In general, she is alert. Abdomen is soft. She is sitting up in bed, nontender. LABS: Glucose 132. ASSESSMENT AND PLAN: This is a 48-year-old female with gallstones and vague GI complaints. Doubtful these are related to her stones as her main complaint is diarrhea, but this all seems to be resolving. It is possible this is enteritis. We will continue current care and observation. No plans for cholecystectomy. cc: Mason Houston MD
--- NOTE | 2018-10-23 00:10 | DISCHARGE SUMMARY ---
ADMISSION DATE: 10/20/2018 DISCHARGE DATE: 10/22/2018 DISPOSITION: Is home. FOLLOWUP: 1. Dr. Welch. 2. Dr. Fofana. 3. Dr. Houston. CONSULTATION: Nephrology was consulted, patient was seen by Dr. Fofana. Surgery was consulted, patient was seen by Dr. Houston. ADMISSION DIAGNOSIS: 1. Gastroparesis. 2. Morbid obesity. 3. Endstage renal disease. 4. Diabetes mellitus. 5. Hypertension. DIAGNOSIS AT THE TIME OF DISCHARGE: 1. Intractable nausea and vomiting on presentation secondary to gastroparesis improved. 2. Cholelithiasis with chronic cholecystitis. Patient has been evaluated by surgery and there is a plan for outpatient followup. 3. Chronic intermittent diarrhea with constipation presumably due to diabetic autonomic enteropathy. 4. End-stage renal disease on hemodialysis 5. Diabetes mellitus complicated with peripheral neuropathy and autonomic neuropathy. 6. Hypothyroidism. 7. Chronic troponin elevation. DISCHARGE MEDICATIONS: 1. Gabapentin 300 p.o. at bedtime. 2. Pantoprazole 40 mg p.o. daily. 3. Metoprolol 50 mg b.i.d. Requip at 3 mg b.i.d. 1. Effexor 75 mg p.o. daily. 2. Aspirin 81 mg p.o. daily. 3. Albuterol. 4. Carvedilol 25 mg b.i.d. Lomotil 1 tablet 4 times per day p.r.n. as needed. PRESENTING COMPLAINT: Nausea, vomiting and diarrhea. HISTORY OF PRESENTING COMPLAINT: Ms Nelson is a 48-year-old female who is known to have end-stage renal disease, also noted to have gastroparesis, came into emergency department because of nausea, vomiting. Patient was evaluated in the ER and a decision was made to admit her for further medical care. HOSPITAL COURSE: Ms Nelson was admitted to the medical floor under telemonitor was initially kept NPO. Multiple imaging studies were done including a chest x-ray initially which shows critically low volume lungs, a KUB was unremarkable for any acute pathology. Ultrasound of the abdomen did show fatty infiltration of the liver and cholelithiasis. A HIDA scan was done during the hospital course which showed an ejection fraction of about 7% which would be consistent with chronic cholecystitis or biliary dyskinesia. Patient's nausea and vomiting improved during the hospital course and she was able to tolerate some diet. She did have intermittent diarrhea which according to her was normal. Surgery was consulted because of the abnormal HIDA scan. Patient was seen by Dr. Houston who recommended to continue medical management and he will evaluate the patient on outpatient base. This morning Ms. Nelson referred to be feeling a lot better, has not had any more bowel movement. We think she is fairly medically stable for discharge. Her current vitals blood pressure is 142/51, pulse of 73, respiration is 16, temperature 98.1 degrees. Physical exam is unchanged. She is going to be discharged in stable condition. All the discharge instructions have been discussed with her. She voiced understanding. TIME SPENT: 35 minutes. cc: MD Dr. Rosemarie Major
== END 2018-10-22 13:44 | disposition home health service (06) | DRG 73 ==
LOC: SUPCPDRO → ED 06:22 → 4N 06:22 → SUATTDRO 09:49
PROVIDERS: ATTEND Internal Medicine
CPT/HCPCS: 71010; 71045; 74000; 74018; 76700; 78227; 80048; 80053; 80069; 82150; 82550; 82805; 82948; 83690; 83735; 84100; 84443; 84484; 85025; 85027; 85610; 93005; 94640; 94761; 99285; A9270; A9537; J1644; J2405; J7030; XXXXX

== ENCOUNTER 2018-12-09 06:14 | Inpatient (IN) ==
--- NOTE | 2018-12-09 06:47 | PROVIDER DOCUMENTATION ---
HPI-Respiratory General - General Chief Complaint: Shortness of Breath Stated Complaint: SOB Time Seen by Provider: 12/09/18 06:18 Allergies/Adverse Reactions: Patient Allergies Allergy/AdvReac Type Severity Reaction Status Date / Time baclofen Allergy DIFFICULTY Verified 07/28/18 10:21 AWAKENING hydralazine Allergy HALLUCINATI Verified 07/28/18 10:21 ONS promethazine [From Phenergan] Allergy DIFFICULTY Verified 07/28/18 10:21 AWAKENING rosuvastatin [From Crestor] Allergy RASH Verified 07/28/18 10:21 caffeine AdvReac Intermediate RAPID Verified 07/28/18 10:21 HEART RATE carvedilol [From Coreg] AdvReac Intermediate RAPID Verified 07/28/18 10:21 HEART RATE cyclobenzaprine HCl * AdvReac Intermediate DIARRHEA Verified 07/28/18 10:21 [From Flexeril] sodium AdvReac Intermediate EXTREME Verified 07/28/18 10:21 SWELLING atorvastatin calcium * AdvReac RASH Verified 07/28/18 10:21 [From Lipitor] clindamycin AdvReac DIARRHEA Verified 07/28/18 10:21 paroxetine [From Paxil] AdvReac Unknown Verified 07/28/18 10:21 trazodone AdvReac HALLUCINATI Verified 07/28/18 10:21 ONS Home Medications: Home Medication List Medication Instructions Recorded Confirmed Last Taken Type Ondansetron HCl [Zofran] 4 mg PO PRN PRN 10/23/16 10/19/18 07/26/18 History Gabapentin 300 mg PO QHS 04/05/17 10/19/18 07/27/18 History Pantoprazole [Protonix] 40 mg PO DAILY 07/26/17 10/19/18 07/27/18 History Fenofibrate Nanocrystallized 48 mg PO DAILY 01/17/18 10/19/18 07/27/18 History [Tricor] Ropinirole HCl [Requip] 3 mg PO BID 06/28/18 10/19/18 07/27/18 History Aspirin [Aspir-Low] 81 mg PO DAILY 07/27/18 10/19/18 07/17/18 History Venlafaxine [Effexor] 75 mg PO DAILY 07/27/18 10/19/18 07/27/18 History Albuterol Sulfate [Ventolin Hfa] 90 mcg INH TID 10/19/18 10/19/18 Unknown History Hydrocodone/Acetaminophen 10 mg PO TID 10/19/18 10/19/18 Unknown History [Hydrocodone-Acetamin 10-325 mg] Carvedilol [Coreg] 25 mg PO BID #120 tab 10/22/18 Unknown Rx Diphenoxylate/Atropine [Lomotil] 1 ea PO 4XDAY PRN PRN #30 tab 10/22/18 Unknown Rx - History of Present Illness-Resp Nature of Presenting Problem: 48 y/o WF c/o progressively worsening SOB for the past 2 days. Pt also notes decreased appetite and generalized weakness. She states that the last time she felt this way, her potassium was low. pt is due for dialysis today. Quality of Pain: reports: none Severity in ED: reports: mild Onset/Duration: reports: 2 days ago Timing: reports: still present Cough Quality/Degree: reports: no cough Episode Frequency: frequent episodes Current Respiratory Medication Therapy: Initiated see nurses note Modifying Factors: improves with: exertion Associated Symptoms: reports: shortness of breath Similar Symptoms Previously?: Yes Recently seen or treated by another doctor?: No Review of Systems - Adult - REVIEW OF SYSTEMS - ADULT Constitutional: reports: no symptoms reported, see HPI Eyes: reports: no symptoms reported, see HPI Ears, Nose, Mouth & Throat: reports: no symptoms reported, see HPI Cardiovascular: reports: no symptoms reported, see HPI Respiratory: reports: see HPI, shortness of breath Gastrointestinal: reports: no symptoms reported, see HPI Genitourinary: reports: no symptoms reported, see HPI Musculoskeletal: reports: no symptoms reported, see HPI Integumentary: reports: no symptoms reported, see HPI Neurological: reports: no symptoms reported, see HPI Psychiatric: reports: no symptoms reported, see HPI Endocrine: reports: no symptoms reported, see HPI Hematologic/Lymphatic: reports: no symptoms reported, see HPI Allergic/Immunologic: reports: no symptoms reported, see HPI All Other Systems: Reviewed and Negative Past History - Adult - PAST MEDICAL HISTORY-ADULT Review of Records: reports: Nursing Assessment Review, Medications Reviewed, Social history reviewed & non-contributory. Major Childhood Illnesses: reports: denies history Cardiovascular: reports: HTN, hyperlipidemia Respiratory: reports: sleep apnea, other (sleep apnea) Gastrointestinal: reports: denies history Obstetrical/Gynecological: reports: denies history Genitourinary: reports: dialysis, kidney disease Musculoskeletal: reports: chronic pain (low back) Neurological: reports: other (diabetic neuropathy) Psychiatric: reports: depression Endocrine/Immune: reports: Diabetes, thyroid disorder (hypothyroid) Other Conditions: reports: denies history - PRIOR SURGERIES/PROCEDURES Surgical/Procedure History: reports: hysterectomy, orthopedic (extremity) (BKA), other (toe nail removal; toe amputation) - PRIOR HOSPITALIZATIONS Prior Hospitalizations: reports: for other non-related - IMMUNIZATION STATUS Childhood Immunizations: See Nurse Assessment Flu Vaccine: See Nurse Assessment - FAMILY HISTORY Family History: reviewed, not pertinent Physical Exam-General - PHYSICAL EXAM-ADULT Initial Vital Signs Reviewed: Yes - CONSTITUTIONAL General Appearance: appears well, alert, no apparent distress - EYES Eyes: PERRL/EOMI - HEAD, EARS, NOSE, MOUTH & THROAT HENMT: normocephalic/atraumatic, moist mucous membranes - NECK Neck: non-tender, full range of motion, supple, normal inspection - RESPIRATORY Respiratory: chest non-tender, normal breath sounds, no pleuratic chest pain, no respiratory distress, no accessory muscle use, wheezing (mild B) - CARDIOVASCULAR Cardiovascular: normal peripheral pulses, regular rate, rhythm, no edema - GASTROINTESTINAL (ABDOMEN) Abdominal Exam: normal bowel sounds, non tender, soft, no organomegaly, no pulsatile mass - LYMPHATIC Lymphatic: no adenopathy - MUSCULOSKELETAL Back Exam: normal inspection, no CVA tenderness, no vertebral tenderness Extremity: normal range of motion, non-tender, normal gait, normal inspection, no pedal edema, no calf tenderness, normal capillary refill - SKIN Integumentary: normal color, normal turgor - NEUROLOGIC Neurologic: entry examiner II-XII nml as tested, grossly normal, no motor/sensory deficits - PSYCHIATRIC Psych/Mental Status: normal mood/affect, normal thought content, normal thought process, oriented x 3 - HEART Score HEART Score: History: Slightly Suspicious HEART Score: ECG: Non-Specific Repolarization Disturbance/LBBB/PM HEART Score: Age: 45-65 Years HEART Score: Risk Factors for Atherosclerotic Disease: 1 or 2 Risk Factors Progress - PLAN OF CARE/RESULTS Progress/Plan/Lab Results: Vital Signs - 8 hr 12/09/18 06:35 Temperature 97.7 F Pulse Rate 66 Respiratory Rate 20 Blood Pressure 185/117 O2 Sat by Pulse Oximetry 91 L Orders Category Date Time Status Nursing- Obtain EKG ONCE Care 12/09/18 06:19 Active CHEST-1 VIEW [RAD] Stat Exams 12/09/18 06:19 Ordered CBC WITH ELECTRONIC DIFF [HEME] Stat Lab 12/09/18 06:38 Ordered COMPREHENSIVE METABOLIC PANEL [CHEM] Stat Lab 12/09/18 06:38 Ordered D-DIMER [COAG] Stat Lab 12/09/18 06:38 Ordered PRO B-NATRIURETIC PEPTIDE Stat Lab 12/09/18 06:38 Ordered TROPONIN T Stat Lab 12/09/18 06:38 Ordered URINALYSIS W/POSS RFLX CULT [URINALYSIS] Stat Lab 12/09/18 06:19 Uncollected Oxygen Device Stat Oth 12/09/18 06:21 Active EKG [EKG] Stat Ther 12/09/18 06:19 Ordered Result Diagrams: 12/09/18 06:25 12/09/18 06:25 - REASSESSMENT Reassessment #1 Time Reassessed: 08:01 Status: other (PATIENT ALERT WITH NORMAL MENTAL STATUS. NO CHEST PAIN. SPEAKING IN FULL SENTENCES. DISCUSSED WITH HOSPITALIST WILL ADMIT AND ARRANGE FOR EMERGENT DIALYSIS) - EKG 1 Time of EKG reading by physician:: 06:24 EKG Read and Signed by:: Parth Wick EKG Interpretation (*Must complete 3 of following elements*): Abnormal Rate: 66 Rhythm: ns [place]: normal QRS: normal TN Interval: normal ST Wave: non-specific ST changes - CHANGE OF SHIFT REPORT (ED Provider) 1 Report Given and Care Transferred to:: Dr Etienne Time of Transfer: 07:00 Items Pending: Labs, XRAY Results Departure - Departure Date of Disposition Decision: 12/09/18 Time of Disposition Decision: 08:00 DIAGNOSIS: Hyperkalemia, ESRD (end stage renal disease) on dialysis Disposition: ADMITTED INPATIENT 09 Certified Medical Emergency: Emergent Condition: Serious Referrals and Follow-Ups: Silverio Welch MD [Primary Care Provider] - - Critical Care Note This patient required my direct & personal management of CC.: Yes Total Time (mins): 45 Critical Care Statement: This patient required my direct personal management to treat or rule out processes, the absence of which, could potentiallly result in sudden, clinically significant life or limb threatening deterioration. Attestation - Physician/ DELBERT Attestation Patient care was provided by Advanced Practice Provider:: No The physician spent face to face time with patient:: Yes Advanced Practice Provider documentation review:: Supervising physician onsite and consulted in the evaluation and care of this patient. The physician did have a face to face encounter with the patient.
[2018-12-09 06:48] LABS: BASO# 0.01 X1000 (0.0-0.2); BASO% 0.1 % (0.0-0.8); EOS# 0.03 X1000 (0.0-0.7); EOS% 0.3 % (0.0-10.0); HEMATOCRIT 36.1 % (37.0-47.0); HEMOGLOBIN 11.1 g/dL (12.0-16.0); IMM GRAN# 0.03 X1000 (0.0-0.04); IMM GRAN% 0.3 % (0.0-0.5); LYMPH# 0.88 X1000 (1.2-3.4); LYMPH% 8.3 % (20.5-51.1); MCH 27.9 PG (27-31); MCHC 30.7 g/dL (33-37); MCV 90.7 FL (81-99); MONO# 0.76 X1000 (0.11-0.59); MONO% 7.1 % (1.7-9.3); MPV 10.3 FL (7.4-10.4); NEUT# 8.92 X1000 (1.4-6.5); NEUT% 83.9 % (42.2-75.2); PLT 153 X1000 (130-400); RBC 3.98 XMIL (4.2-5.4); RDW 14.6 % (11.5-14.5); WBC 10.63 X1000 (4.8-10.8)
--- NOTE | 2018-12-09 07:00 | EKG Report ---
Test Performed on : 12/09/2018 06:29:29 AM Test Reason : sob Blood Pressure : / mmHG Vent. Rate : 066 BPM Atrial Rate : 066 BPM P-R Int : 174 ms QRS Dur : 116 ms QT Int : 424 ms P-R-T Axes : 053 140 005 degrees QTc Int : 444 ms Sinus rhythm. with sinus arrhythmia. with ventricular escape complexes. Possible Left atrial enlargement Right axis deviation Low voltage QRS Cannot rule out Anterior infarct (cited on or before 19-OCT-2018) Abnormal ECG When compared with ECG of 19-OCT-2018 07:14, (Unconfirmed) Significant changes have occurred Unconfirmed Result
--- NOTE | 2018-12-09 07:16 | Diag Imaging Result Doc PS360 ---
EXAM: CHEST-1 VIEW 12/09/2018 HISTORY: sob TECHNIQUE: AP portable at 0651 COMMENT: The inspiration is suboptimal. There is cardiomegaly. The atelectasis or pneumonia previously demonstrated on 10/19/2018 and the lingula has improved. IMPRESSION: Cardiomegaly. Electronically signed by Wilson Carroll 12/09/2018 7:14 AM
[2018-12-09 07:45] LABS: ALB/GLOB RATIO 1.2; ALBUMIN 4.3 g/dL (3.5-5.0); CALCIUM 8.5 mg/dL (8.8-10.2); CREATININE 5.5 mg/dL (0.5-0.9); TOTAL BILIRUBIN 0.44 mg/dL (0.20-1.00); TOTAL PROTEIN 7.8 g/dL (6.3-8.3)
[2018-12-09] MEDS: SODIUM BICARBONATE 8.4% IV PUSH ONE ×2 (07:46→08:14)
[2018-12-09] MEDS ORDERED: HUMULIN R IV ONE (07:46)
[2018-12-09 07:47] LABS: POTASSIUM 8.8 mmol/L (3.5-5.1)
[2018-12-09] MEDS ORDERED: D50W SYRINGE IV ONE (07:47)
[2018-12-09] MEDS ORDERED: ASPIRIN PO ONE (07:51)
[2018-12-09] MEDS ORDERED: NITROGLYCERIN TOP ONE (07:51)
[2018-12-09] MEDS ORDERED: ALBUTEROL NEB INH ONE (07:52)
[2018-12-09] MEDS ORDERED: CALCIUM CHLORIDE SYRINGE IV ONE (08:07)
[2018-12-09] MEDS: KAYEXALATE PO ONE ×2 (08:07→08:14)
--- NOTE | 2018-12-09 08:23 | EKG Report ---
Test Performed on : 12/09/2018 08:10:39 AM Test Reason : bradycardia Blood Pressure : / mmHG Vent. Rate : 065 BPM Atrial Rate : 065 BPM P-R Int : 190 ms QRS Dur : 088 ms QT Int : 426 ms P-R-T Axes : 045 140 015 degrees QTc Int : 443 ms Sinus rhythm. with sinus arrhythmia. with ventricular escape complexes. Right axis deviation Low voltage QRS Cannot rule out Anterior infarct (cited on or before 19-OCT-2018) Abnormal ECG When compared with ECG of 09-DEC-2018 06:29, (Unconfirmed) ST elevation now present in Inferior leads ST now depressed in Anterior leads Unconfirmed Result
[2018-12-09] MEDS ORDERED: TIGHT: 0.2 ML/HR FOR DIALYSIS MISC PRN (09:24)
[2018-12-09] MEDS ORDERED: NS 2,000 ML MISC PRN (09:24)
[2018-12-09] MEDS ORDERED: HEPARIN IV PRN (09:24)
[2018-12-09] MEDS ORDERED: DUONEB (A & A) INH PRN (12:49)
--- NOTE | 2018-12-09 13:36 | HISTORY AND PHYSICAL ---
CHIEF COMPLAINT: Shortness of breath. HISTORY OF PRESENT ILLNESS: This is a 48-year-old female with a history of insulin-dependent diabetes, morbid obesity, end-stage renal disease on Wednesday, Wednesday, Wednesday dialysis, bilateral [id number] amputations, hypothyroid, and obstructive sleep apnea. She comes in to the emergency room complaining of shortness of breath and generalized weakness. She states this started about 2 days ago. She denied any fevers or chills, a cough. On arrival to the emergency room, she had a heart rate of 40, this subsequently dropped to 26-33 range. She was found to have a potassium of 8.8 for which she was given 1 g of calcium chloride, 50 mL of D50, 10 of Humulin R, as well as 50 mEq of sodium bicarb. Dr. Fofana was at the bedside with the patient in the emergency room, and she was taken to hemodialysis. PAST MEDICAL HISTORY: 1. Insulin-dependent diabetes mellitus. 2. End-stage renal disease on Wednesday, Wednesday, Wednesday, hemodialysis. 3. Diabetic nephropathy. 4. Bilateral [id number]-[id number] amputations. 5. Hypothyroid. 6. Obstructive sleep apnea with nighttime oxygen. 7. Diabetic neuropathy. 8. Depression and chronic pain. PAST SURGICAL HISTORY: 1. Left toe amputation secondary to osteomyelitis. 2. 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 3. Hysterectomy. 4. AV shunt placement in the left arm. SOCIAL HISTORY: She denies alcohol, tobacco, or illicit drug use. ALLERGIES: Acetaminophen, Baclofen, hydralazine, Phenergan, Crestor, caffeine, Coreg, Flexeril, Lipitor, clindamycin, sodium, all with unknown reactions. HOME MEDICATIONS: A list will be obtained by the nursing staff and once verified will be restarted as appropriate. REVIEW OF SYSTEMS: Discussed with patient with pertinent positives stated in the HPI. She denied any syncope or dizziness, any chest pain or palpitations, a cough, any fevers, chills, any night sweats, any nausea, vomiting, diarrhea, constipation, black or bloody vomitus or stools, any hematuria, dysuria, frequency, urgency. PHYSICAL EXAMINATION: GENERAL: This is a morbidly obese 48-year-old female, who is lying in the stretcher in the emergency room in distress. VITAL SIGNS: Blood pressure is 160/80 with a heart rate ranging from 26-30, respirations are 16, temperature is 97.7 degrees oral with O2 saturations 100% on 2 L. HEENT: Head is normocephalic, atraumatic. Mucous membranes are moist. NECK: Supple with trachea midline. CARDIOVASCULAR: Irregularly rate and rhythm, bradycardic. S1, S2 appreciated. Peripheral pulses palpable to bilateral arms. PULMONARY: Breath sounds with expiratory wheezes scattered throughout. Chest rise and fall is symmetric with respiration. GASTROINTESTINAL: Abdomen is soft, nontender, nondistended. Bowel sounds in all 4 quadrants. NEUROLOGIC: She is awake and oriented. LABORATORY: WBC is 10.6 with hemoglobin 11.1, hematocrit 36.1, and platelets 153. D-dimer is 4.92. Sodium 131, potassium 8.8, BUN 79, creatinine 5.5, with a glucose of 294. Troponin is 1.560 with a ProBNP of greater than 35,000. EKG reveals sinus rhythm with ventricular escape complexes. ASSESSMENT AND PLAN: 1. Hyperkalemia. 2. Symptomatic bradycardia secondary to number 1. 3. End-stage renal disease on Wednesday, Wednesday, Wednesday hemodialysis. 4. Insulin-dependent diabetes mellitus. 5. Morbid obesity. 6. Hypertension. 7. Hypothyroid. 8. Anemia of chronic disease. PLAN: The patient has been taken to dialysis, after she will be admitted to ICU. She will placed on telemetry. Will review her medications and restart as appropriately. Will obtain an EKG in the morning. Will continue to trend a CK profile and troponin every 6 hours, check CBC and renal profile daily. Will give DuoNebs q.4 hours p.r.n. wheezing. Will consult Dr. Fofana. Plan was discussed with Dr. Faust. Further treatments pending hospital course. Dictated by CALI Lopes for Dionisio Blanca MD Addendum: Patine seen and examined by myself. Agree with CALI note. It reflects my assessment and plan. Patient is being admitted to hospital for severe hyperkalemia. At the time of my evaluation patient is being transported for emergent dialysis. Dr. Fofana has been consulted for medical management. Will follow recommendations. Will continue with rest of home medications. cc: CALI Lopes MD [facility]
[2018-12-09] MEDS: HUMALOG SUBQ SCH ×2 (15:45→20:40)
[2018-12-09 18:03] LABS: CALCIUM 8.9 mg/dL (8.8-10.2); CREATININE 3.6 mg/dL (0.5-0.9); POTASSIUM 4.5 mmol/L (3.5-5.1)
[2018-12-09] MEDS ORDERED: NORCO-7.5 PO PRN (19:09)
--- NOTE | 2018-12-09 19:39 | NEPHROLOGY CONSULTATION ---
DATE: 12/09/2018 ATTENDING PHYSICIAN: Dionisio Blanca MD. CONSULTING PRACTITIONER: CALI Lopes. REASON FOR CONSULTATION: Life-threatening hyperkalemia and volume overload. HISTORY OF PRESENT ILLNESS: Ms. Nelson is a 48-year-old white female who is well known to us. She has diabetes with severe peripheral vascular disease, ESRD, congestive heart failure, etc. I actually saw her earlier this week on dialysis, and she was free of symptoms and eating well and no complaints. She woke up this morning quite short of breath with chest tightness and profound malaise. Because of her worsening symptoms, she had herself transported to the hospital instead of the dialysis unit. On arrival, she was bradycardic and her initial labs disclosed potassium of 8.8. Chest x-ray with pulmonary edema. Again, I was contacted while she was acutely ill in the emergency room. She was administer IV insulin and IV calcium, and then she was transported immediately to dialysis. She was seen by me both on dialysis and in the emergency room. PAST MEDICAL HISTORY: As above. HOME MEDICATIONS: Include: 1. Insulin. 2. Kayexalate. 3. Albuterol. 4. Other medications are not yet reconciled. ALLERGIES: Baclofen, hydralazine, promethazine, rosuvastatin, carvedilol. SOCIAL HISTORY: She lives with her family here in [place]. FAMILY HISTORY: Otherwise noncontributory. REVIEW OF SYSTEMS: Otherwise noncontributory. PHYSICAL EXAMINATION: Vital Signs: Blood pressure 185/117, heart rate 66, respirations 20, afebrile. General: Acutely ill white female, hyperventilating. Skin: Pale and moist. HEENT: Pupils are equal. Conjunctivae are pink. Oropharynx is clear. Neck: Neck veins are not appreciated. Heart: Distant, but regular and bradycardic. Lungs: Equal with scattered crackles. Abdomen: Obese, soft, nontender. Diminished bowel sounds. Extremities: No palpable edema, clubbing, or cyanosis. IMPRESSION: Chronic kidney disease, stage 5D, with acute hyperkalemia and volume overload. Urgent dialysis for 3.5 hours using a 2 potassium bath and maximum ultrafiltration rate based on her body weight. I will recheck her potassium thereafter. Likely, requires repeat dialysis tomorrow. Again, she was examined during dialysis without any deterioration in her status. cc: Dany Fofana MD
[2018-12-09] MEDS: REQUIP PO SCH (21:25)
[2018-12-09] MEDS: NEURONTIN PO SCH (21:25)
--- NOTE | 2018-12-09 22:26 | EKG Report ---
Test Performed on : 12/09/2018 10:23:17 PM Test Reason : ELEVATED TROP Blood Pressure : / mmHG Vent. Rate : 081 BPM Atrial Rate : 081 BPM P-R Int : 152 ms QRS Dur : 092 ms QT Int : 396 ms P-R-T Axes : 043 062 -54 degrees QTc Int : 460 ms Normal sinus rhythm. Cannot rule out Anterior infarct , age undetermined Abnormal ECG When compared with ECG of 09-DEC-2018 22:22, (Unconfirmed) No significant change was found Confirmed by Rocael Moe MD ([id number]) on 12/12/2018 12:40:46 PM
[2018-12-10 05:16] LABS: BASO# 0.03 X1000 (0.0-0.2); BASO% 0.5 % (0.0-0.8); EOS# 0.39 X1000 (0.0-0.7); HEMATOCRIT 31.8 % (37.0-47.0); HEMOGLOBIN 9.9 g/dL (12.0-16.0); LYMPH# 1.65 X1000 (1.2-3.4); LYMPH% 25.4 % (20.5-51.1); MCH 28.4 PG (27-31); MCHC 31.1 g/dL (33-37); MCV 91.1 FL (81-99); MONO# 0.52 X1000 (0.11-0.59); NEUT% 60.1 % (42.2-75.2); PLT 151 X1000 (130-400); RBC 3.49 XMIL (4.2-5.4); RDW 14.8 % (11.5-14.5); WBC 6.49 X1000 (4.8-10.8)
[2018-12-10 05:49] LABS: ALBUMIN 3.2 g/dL (3.5-5.0); CALCIUM 8.1 mg/dL (8.8-10.2); CREATININE 5.1 mg/dL (0.5-0.9); POTASSIUM 4.6 mmol/L (3.5-5.1)
[2018-12-10] MEDS: HUMALOG SUBQ SCH ×4 (05:55→16:47)
--- NOTE | 2018-12-10 07:16 | EKG Report ---
Test Performed on : 12/10/2018 06:12:54 AM Test Reason : bradycardia Blood Pressure : / mmHG Vent. Rate : 105 BPM Atrial Rate : 326 BPM P-R Int : 000 ms QRS Dur : 096 ms QT Int : 362 ms P-R-T Axes : 000 003 238 degrees QTc Int : 478 ms Atrial fibrillation. with rapid ventricular response. Possible Anterior infarct (cited on or before 19-OCT-2018) Abnormal ECG When compared with ECG of 09-DEC-2018 22:23, (Unconfirmed) Atrial fibrillation. has replaced Sinus rhythm. Questionable change in QRS axis Confirmed by Abhi MARCH, M. Nakul ([id number]) on 12/11/2018 9:33:02 PM
[2018-12-10] MEDS ORDERED: NS 2,000 ML MISC PRN (07:54)
[2018-12-10] MEDS ORDERED: TIGHT: 0.2 ML/HR FOR DIALYSIS MISC PRN (07:54)
[2018-12-10] MEDS ORDERED: HEPARIN IV PRN (07:54)
[2018-12-10] MEDS: NEURONTIN PO SCH ×2 (08:31→15:25)
[2018-12-10] MEDS: REQUIP PO SCH (08:31)
--- NOTE | 2018-12-10 15:44 | NEPHROLOGY PROGRESS NOTE ---
DATE: 12/10/2018 SUBJECTIVE: She is currently on dialysis. She states she feels well. No shortness of breath, nausea, or vomiting. OBJECTIVE: Vital Signs: Blood pressure 90/79, heart rate 104, respirations 21, afebrile. General: No acute distress. Skin: Warm and dry. Neck: Neck veins are not appreciated. Heart: Regular. Not bradycardic. Lungs: Equal, no crackles. Abdomen: Soft, nontender. Bowel sounds present. Extremities: No edema, clubbing, or cyanosis. IMPRESSION: 1. Life-threatening hyperkalemia. Resolved. 2. Hypervolemia with clinical congestive heart failure. Improved. She is receiving a 2nd consecutive dialysis today for improvement of her volume status. 3. Relative hypotension. Chronic problem. Observe. cc: Dany Fofana MD
[2018-12-10 16:08] VITALS: BP 127/64
--- NOTE | 2018-12-10 18:34 | DISCHARGE SUMMARY ---
ADMISSION DATE: 12/09/2018 DISCHARGE DATE: 12/10/2018 DISCHARGE DIAGNOSES: 1. Severe hyperkalemia. 2. Symptomatic bradycardia secondary to condition #1. 3. End-stage renal disease, on dialysis. 4. Insulin-dependent diabetes mellitus. 5. Morbid obesity. 6. Hypertension. 7. Hypothyroidism. 8. Anemia of chronic disease. CONSULTATIONS: Dr. Fofana from Nephrology. PROCEDURES: Chest x-ray done in the ER showed cardiomegaly. HOSPITAL COURSE: This is a 48-year-old, female, with past medical history of end-stage renal disease, on dialysis, insulin-dependent diabetes mellitus. She basically came to the emergency department complaining of shortness of breath and generalized weakness that apparently started 2 days before admission. The heart rate was very low in the range of 40s to 30s. Labs showed potassium of 8.8. The patient was evaluated by Nephrology at bedside. She received emergent hemodialysis. We repeated the BMP at 5:30 on the day of admission and potassium was 4.5, because she looked volume overloaded. The next day, she had another hemodialysis session and she was feeling much better, so she is going to be discharged in stable condition. Because this is not the first time that this patient has this problem with hyperkalemia, we recommend the patient to see Dr. Fofana in the office to see if she needs to be on any medication for this chronic problem or not. In any case, she is going to be discharged in stable condition. We are not going to make any changes to her current medications. DISCHARGE PHYSICAL EXAMINATION: Vital signs: Temperature 97.9 degrees, heart rate 92, respiratory rate 15, blood pressure 127/64, O2 saturation 97% on room air. General: This is a chronically ill-looking, morbidly obese, 48-year-old, female, lying in bed in no acute distress. Cardiovascular: S1, S2 heard. No murmurs, gallops, or rubs. Regular rate and rhythm. Respiratory: Clear bilaterally to auscultation. No work of breathing or using accessory muscles. Abdomen: Soft, nontender to palpation. Bowel sounds present. No organomegaly. Extremities: Bilateral amputations. Neurologic: Patient is alert and oriented x3. Moves all extremities. DISCHARGE DISPOSITION: Home to self-care. LIST OF MEDICATIONS: We are not making any changes to her current medications. FOLLOWUP: Follow up with Dr. Fofana in a week to see if she needs to be on any long-term medication for hyperkalemia or not. cc: Dionisio Blanca MD
== END 2018-12-10 17:25 | disposition home or self-care (01) | DRG 640 ==
LOC: SUPCPDRO → ED 06:14 → ICU 11:45
PROVIDERS: ATTEND Internal Medicine

== ENCOUNTER 2018-12-13 21:58 | Inpatient (IN) ==
[2018-12-13] MEDS ORDERED: TORADOL IV ONE (22:27)
[2018-12-13] MEDS ORDERED: NS 1,000 ML IV ONE (22:27)
[2018-12-13 23:12] LABS: BASO# 0.03 X1000 (0.0-0.2); BASO% 0.3 % (0.0-0.8); EOS% 3.1 % (0.0-10.0); HEMATOCRIT 36.6 % (37.0-47.0); HEMOGLOBIN 11.2 g/dL (12.0-16.0); IMM GRAN# 0.03 X1000 (0.0-0.04); IMM GRAN% 0.3 % (0.0-0.5); LYMPH# 1.65 X1000 (1.2-3.4); LYMPH% 16.9 % (20.5-51.1); MCH 28.2 PG (27-31); MCHC 30.6 g/dL (33-37); MCV 92.2 FL (81-99); MONO# 0.78 X1000 (0.11-0.59); MPV 9.8 FL (7.4-10.4); NEUT# 6.99 X1000 (1.4-6.5); NEUT% 71.4 % (42.2-75.2); PLT 209 X1000 (130-400); RBC 3.97 XMIL (4.2-5.4); RDW 14.9 % (11.5-14.5); WBC 9.78 X1000 (4.8-10.8)
[2018-12-13 23:51] LABS: ALB/GLOB RATIO 1.2; ALBUMIN 4.5 g/dL (3.5-5.0); CALCIUM 9.2 mg/dL (8.8-10.2); CREATININE 4.7 mg/dL (0.5-0.9); TOTAL BILIRUBIN 0.27 mg/dL (0.20-1.00); TOTAL PROTEIN 8.3 g/dL (6.3-8.3)
[2018-12-13 23:52] LABS: POTASSIUM 8.1 mmol/L (3.5-5.1)
[2018-12-13] MEDS ORDERED: HUMULIN R IV ONE (23:55)
[2018-12-13] MEDS ORDERED: SODIUM BICARBONATE 8.4% IV ONE (23:55)
[2018-12-13] MEDS ORDERED: CALCIUM GLUCONATE 1 GM in NS 50 ML IV ONE (23:55)
[2018-12-13] MEDS ORDERED: D50W SYRINGE IV ONE (23:57)
--- NOTE | 2018-12-14 00:12 | PROVIDER DOCUMENTATION ---
This chart was entered by Edwina Pulido Scribe, acting as scribe for Klever Anderson MD. HPI-General Adult - General Chief Complaint: Weakness Stated Complaint: WEAKNESS Time Seen by Provider: 12/13/18 22:04 Source: patient Allergies/Adverse Reactions: Patient Allergies Allergy/AdvReac Type Severity Reaction Status Date / Time baclofen Allergy DIFFICULTY Verified 07/28/18 10:21 AWAKENING hydralazine Allergy HALLUCINATI Verified 07/28/18 10:21 ONS promethazine [From Phenergan] Allergy DIFFICULTY Verified 07/28/18 10:21 AWAKENING rosuvastatin [From Crestor] Allergy RASH Verified 07/28/18 10:21 caffeine AdvReac Intermediate RAPID Verified 07/28/18 10:21 HEART RATE carvedilol [From Coreg] AdvReac Intermediate RAPID Verified 07/28/18 10:21 HEART RATE cyclobenzaprine HCl * AdvReac Intermediate DIARRHEA Verified 07/28/18 10:21 [From Flexeril] sodium AdvReac Intermediate EXTREME Verified 07/28/18 10:21 SWELLING atorvastatin calcium * AdvReac RASH Verified 07/28/18 10:21 [From Lipitor] clindamycin AdvReac DIARRHEA Verified 07/28/18 10:21 paroxetine [From Paxil] AdvReac Unknown Verified 07/28/18 10:21 trazodone AdvReac HALLUCINATI Verified 07/28/18 10:21 ONS Home Medications: Home Medication List Medication Instructions Recorded Confirmed Last Taken Type Ondansetron HCl [Zofran] 4 mg PO PRN PRN 10/23/16 12/13/18 07/26/18 History Gabapentin 600 mg PO BID 04/05/17 12/13/18 07/27/18 History Pantoprazole [Protonix] 40 mg PO DAILY 07/26/17 12/13/18 07/27/18 History Fenofibrate Nanocrystallized 48 mg PO DAILY 01/17/18 12/13/18 07/27/18 History [Tricor] Ropinirole HCl [Requip] 3 mg PO BID 06/28/18 12/13/18 07/27/18 History Aspirin [Aspir-Low] 81 mg PO DAILY 07/27/18 12/13/18 07/17/18 History Venlafaxine [Effexor] 75 mg PO DAILY 07/27/18 12/13/18 07/27/18 History Albuterol Sulfate [Ventolin Hfa] 90 mcg INH PRN PRN 10/19/18 12/13/18 12/09/18 History Hydrocodone/Acetaminophen 10 mg PO TID 10/19/18 12/13/18 Unknown History [Hydrocodone-Acetamin 10-325 mg] - History of Present Illness -Gen Adult Nature of Presenting Problems: pt is a 48 yr old female presenting via EMS with complaint of weakness onset this AM, pt reports last night she had episode of chest pain that resolved with 2 nitro sublingual tablets, today pt reports no chest pain or shortness of breath has felt weak and tired today, no dizziness or syncope. pt reports she is on dialysis and has next tx tomorrow Location of Pain/Injury: reports: none Pain Radiation: reports: no radiation Quality of Pain: reports: none Severity: reports: moderate Onset/Duration: reports: this morning Timing: reports: still present Context/Activities at Onset: reports: rest Modifying Factors: improves with: nothing Associated Symptoms: reports: fatigue, weakness. denies: chest pain, dizziness, fever/chills, headaches, nausea, shortness of breath, vomiting Similar Symptoms Previously?: Yes Recently seen or treated by another doctor?: Yes (pt admitted here 12/09-12/10 for hyperkalemia) Review of Systems - Adult - REVIEW OF SYSTEMS - ADULT Constitutional: reports: fatique. denies: chills, fever Eyes: reports: no symptoms reported Ears, Nose, Mouth & Throat: reports: no symptoms reported Cardiovascular: reports: chest pain (resolved with nitro). denies: palpitations, syncope Respiratory: denies: cough, shortness of breath Gastrointestinal: denies: abdominal pain, diarrhea, nausea, vomiting Genitourinary: reports: no symptoms reported Musculoskeletal: reports: no symptoms reported Integumentary: reports: no symptoms reported Neurological: denies: dizziness/vertigo, headache/migraines, syncope Psychiatric: reports: no symptoms reported Endocrine: reports: no symptoms reported Hematologic/Lymphatic: reports: no symptoms reported Allergic/Immunologic: reports: no symptoms reported All Other Systems: Reviewed and Negative Past History - Adult - PAST MEDICAL HISTORY-ADULT Review of Records: reports: Old Records Reviewed, Nursing Assessment Review, Medications Reviewed, Social history reviewed & non-contributory. Major Childhood Illnesses: reports: denies history Cardiovascular: reports: HTN, hyperlipidemia Respiratory: reports: sleep apnea, other (sleep apnea) Gastrointestinal: reports: denies history Obstetrical/Gynecological: reports: denies history Genitourinary: reports: dialysis, kidney disease Musculoskeletal: reports: chronic pain (low back) Neurological: reports: other (diabetic neuropathy) Psychiatric: reports: depression Endocrine/Immune: reports: Diabetes, thyroid disorder (hypothyroid) Other Conditions: reports: denies history - PRIOR SURGERIES/PROCEDURES Surgical/Procedure History: reports: hysterectomy, orthopedic (extremity) (BKA), other (toe nail removal; toe amputation) - PRIOR HOSPITALIZATIONS Prior Hospitalizations: reports: for other non-related - IMMUNIZATION STATUS Childhood Immunizations: See Nurse Assessment Flu Vaccine: See Nurse Assessment - FAMILY HISTORY Family History: reviewed, not pertinent - SOCIAL HISTORY Smoking: quit greater than 1 year Living Situation: alone Physical Exam-General - PHYSICAL EXAM-ADULT Initial Vital Signs Reviewed: Yes - CONSTITUTIONAL General Appearance: appears well, alert, no apparent distress - EYES Eyes: PERRL/EOMI - HEAD, EARS, NOSE, MOUTH & THROAT HENMT: normocephalic/atraumatic, moist mucous membranes - NECK Neck: non-tender, full range of motion, supple, normal inspection - RESPIRATORY Respiratory: chest non-tender, lungs clear, normal breath sounds - CARDIOVASCULAR Cardiovascular: normal peripheral pulses, regular rate, rhythm, no edema - GASTROINTESTINAL (ABDOMEN) Abdominal Exam: normal bowel sounds, non tender, soft - LYMPHATIC Lymphatic: no adenopathy - MUSCULOSKELETAL Back Exam: normal inspection, no CVA tenderness, no vertebral tenderness Extremity: normal range of motion, non-tender, normal gait, normal inspection - SKIN Integumentary: normal color, normal turgor, warm/dry - NEUROLOGIC Neurologic: grossly normal, no motor/sensory deficits - PSYCHIATRIC Psych/Mental Status: normal mood/affect Progress - PLAN OF CARE/RESULTS Progress/Plan/Lab Results: Vital Signs - 8 hr 12/13/18 22:11 Temperature 98.6 F Pulse Rate 75 Respiratory Rate 20 Blood Pressure 165/99 O2 Sat by Pulse Oximetry 97 Orders Category Date Time Status Nursing- Obtain EKG ONCE Care 12/13/18 22:25 Active cxr [CHEST-1 VIEW] [RAD] Stat Exams 12/13/18 22:26 Ordered CBC WITH ELECTRONIC DIFF [HEME] Stat Lab 12/13/18 22:25 Uncollected COMPREHENSIVE METABOLIC PANEL [CHEM] Stat Lab 12/13/18 22:25 Uncollected LACTATE, PLASMA [CHEM] Stat Lab 12/13/18 22:26 Uncollected PRO B-NATRIURETIC PEPTIDE Stat Lab 12/13/18 22:25 Uncollected TROPONIN T Stat Lab 12/13/18 22:25 Uncollected URINALYSIS W/POSS RFLX CULT [URINALYSIS] Stat Lab 12/13/18 22:26 Uncollected 0.9% Sodium Chloride Inj [Ns] 1,000 ml Med 12/13/18 22:27 Active IV 999 mls/hr Ketorolac [Toradol] Med 12/13/18 22:27 Discontinued 30 mg IV NOW ONE EKG [EKG] Stat Ther 12/13/18 22:25 Ordered Pt once again has hyperkalemia, which was treated, will admit and pt to get dialyzed in the morning, spoke with Dr. Coreas and will admit to his service Result Diagrams: 12/13/18 23:00 12/13/18 23:00 - EKG 1 Time of EKG reading by physician:: 22:20 EKG Read and Signed by:: lKever Anderson EKG Interpretation (*Must complete 3 of following elements*): Abnormal (marked ST abnormality possible subendocardial injury) Rate: 70 Rhythm: nsr with sinus arrhythmia [place]: right QRS: other (low voltage QRS) CO Interval: normal Departure - Departure Date of Disposition Decision: 12/14/18 Time of Disposition Decision: 00:11 DIAGNOSIS: Hyperkalemia Disposition: ADMITTED INPATIENT 09 Certified Medical Emergency: Emergent Condition: Stable Referrals and Follow-Ups: Silverio Welch MD [Primary Care Provider] - - Critical Care Note This patient required my direct & personal management of CC.: No Attestation - Physician/ DELBERT Attestation Patient care was provided by Advanced Practice Provider:: No The physician spent face to face time with patient:: Yes Advanced Practice Provider documentation review:: Supervising physician onsite and consulted in the evaluation and care of this patient. The physician did have a face to face encounter with the patient. This chart was documented by the indicated scribe, (Edwina Pulido Scribe) and accurately reflects the services I performed and decisions made by me, Klever Nelson MD, as attested by the provider's signature.
--- NOTE | 2018-12-14 00:13 | EKG Report ---
Test Performed on : 12/13/2018 10:20:57 PM Test Reason : weakness Blood Pressure : / mmHG Vent. Rate : 070 BPM Atrial Rate : 070 BPM P-R Int : 162 ms QRS Dur : 098 ms QT Int : 398 ms P-R-T Axes : 022 131 122 degrees QTc Int : 429 ms Normal sinus rhythm. with sinus arrhythmia. Right axis deviation Low voltage QRS Marked ST abnormality, possible lateral subendocardial injury Abnormal ECG When compared with ECG of 10-DEC-2018 06:12, Significant changes have occurred Confirmed by Rocael Moe MD ([id number]) on 12/14/2018 6:25:46 AM
[2018-12-14] MEDS ORDERED: ALBUTEROL 0.5% INH CONC FOR HYPERKALEMIA INH ONE (02:12)
[2018-12-14] MEDS ORDERED: TYLENOL PO PRN (02:14)
[2018-12-14] MEDS ORDERED: ZOFRAN IV PRN (02:15)
[2018-12-14] MEDS ORDERED: VENTOLIN HFA INH PRN (02:17)
--- NOTE | 2018-12-14 02:35 | HISTORY AND PHYSICAL ---
ADDENDUM: This is an addendum to the history and physical exam dated 12/14/2018. The patient is brought in today because of 1-day history of generalized weakness, lightheadedness, shortness of breath and transient chest pain. Found to be hyperkalemic. She has a history of end- stage renal disease, undergoes hemodialysis on Wednesday, Wednesday, and Wednesday. Other past medical history is notable for diabetes, hypertension, restless legs syndrome. The patient denies of any hoie-jaf-vhyfviy medications use of NSAID. No dietary indiscretion. Recently become compliant with hemodialysis. EKG does show sinus rhythm. Borderline first-degree AV block. No widened QRS complex. Potassium is 3.1, bicarb 24, BUN 6, creatinine 4.3. Her troponin is 1.69, and apparently troponin runs around 1.5 since the 09 of December. The patient has been given dextrose and insulin, bicarb and calcium gluconate. Will repeat potassium in 2 hours and if still elevated, i.e., greater than 5.5, will repeat insulin, bicarb, albuterol and D50. Etiology of hyperkalemia yet to be determined. Type 4 RTA is a possibility, however, patient's bicarb is too normal to high to be consistent with a type 4 RTA. We will consult the dietitian to see patient to advised her on high potassium containing foods. She will undergo dialysis later today. Dr. Fofana will be called. cc: Randa Coreas MD
[2018-12-14] MEDS: NORCO-10 PO PRN (02:59)
[2018-12-14] MEDS ORDERED: MORPHINE IV ONE ×2 (03:13→04:49)
[2018-12-14] MEDS ORDERED: BLISTEX MEDICATED BERRY LIP BALM TOP PRN (03:48)
[2018-12-14 03:54] LABS: CALCIUM 9.1 mg/dL (8.8-10.2); CREATININE 4.6 mg/dL (0.5-0.9); MAGNESIUM 1.6 mg/dL (1.5-2.7); PHOSPHORUS 5.1 mg/dL (2.7-4.5); POTASSIUM 5.5 mmol/L (3.5-5.1)
[2018-12-14 04:19] LABS: HEMOGLOBIN A1C 8.5 % (4.8-6.0)
[2018-12-14] MEDS ORDERED: NITROGLYCERIN SL ONE ×2 (04:20→04:49)
--- NOTE | 2018-12-14 04:55 | EKG Report ---
Test Performed on : 12/14/2018 02:44:21 AM Test Reason : Elevated Troponin Blood Pressure : / mmHG Vent. Rate : 115 BPM Atrial Rate : 115 BPM P-R Int : 146 ms QRS Dur : 100 ms QT Int : 332 ms P-R-T Axes : 061 103 017 degrees QTc Int : 459 ms Sinus tachycardia. Rightward axis Nonspecific ST abnormality Abnormal ECG When compared with ECG of 14-DEC-2018 02:43, (Unconfirmed) No significant change was found Confirmed by Rocael Moe MD ([id number]) on 12/16/2018 4:27:29 PM
--- NOTE | 2018-12-14 04:55 | EKG Report ---
Test Performed on : 12/14/2018 02:43:48 AM Test Reason : Elevated Troponin Blood Pressure : / mmHG Vent. Rate : 115 BPM Atrial Rate : 115 BPM P-R Int : 146 ms QRS Dur : 102 ms QT Int : 326 ms P-R-T Axes : 056 103 016 degrees QTc Int : 450 ms Sinus tachycardia. Rightward axis Nonspecific ST and T wave abnormality Abnormal ECG When compared with ECG of 13-DEC-2018 22:20, (Unconfirmed) Vent. rate has increased BY 45 BPM Nonspecific T wave abnormality no longer evident in Anterior leads Confirmed by Rocael Moe MD ([id number]) on 12/16/2018 4:27:26 PM
--- NOTE | 2018-12-14 05:35 | HISTORY AND PHYSICAL ---
MARRIAGE COUNSELOR: Dany Fofana MD DATE AND TIME: 12/14/2018 at 0045. CHIEF COMPLAINT: Weakness. HISTORY OF PRESENT ILLNESS: Ms. Nelson is a 48-year-old female who is well known to our service. She does have a past medical history most notable for end-stage renal disease on hemodialysis on Mondays, Wednesdays, and Fridays and diabetes mellitus. Most recently the patient was admitted on December 09 and discharged on December 10. She was treated for severe hyperkalemia, symptomatic bradycardia secondary to her hyperkalemia. The patient states that since being discharged she did receive her regular dialysis treatment on Wednesday. She received a full treatment. She stated that she felt fine up until Wednesday night when she had 2 episodes of intermittent chest pain. The first one was approximately 20 minutes, the second one was about 40 minutes, said she took 2 sublingual nitroglycerin and her chest pain subsided, and she did not have any further symptoms for the rest of the night. Then she states Wednesday that she woke up with having generalized weakness, some dizziness, feeling lightheaded and short of breath though she has not reported any chest pain since the night before. The patient stated that she felt like she did when she came in the last time when her potassium was high. Secondary to this she did go ahead and present to the ER for further evaluation. Upon evaluation she was noted to be hyperkalemic with a potassium of 8.1, sodium was 133, BUN was 66, creatinine 4.7 with a GFR 10. Troponin was elevated at 1.69 and proBNP was greater than 35,000. At this time the patient is denying any chest pain. The elevation in her troponin is likely secondary to her renal dysfunction. EKG showed sinus rhythm. There was noted to be a marked ST abnormality. This does appear to have some inverted T-waves though there is no acute ST depression or elevation noted. There is no widened QRS either. In comparison with her most recent EKG during her last admission, there does not appear to be acute change at this time. She did have rate of 70 with a QTc of 429. In the ER, the patient was treated for her hyperkalemia with calcium gluconate 1 g IV, 10 units of regular insulin IV, 1 amp of D50, 1 amp of sodium bicarbonate, and a hyperkalemic albuterol nebulizer treatment. She will be placed in ICU for close monitoring. REVIEW OF SYSTEMS: A 14 point review of systems was conducted with the patient and all were negative except for pertinent positives mentioned above in the HPI. She denies any headache, though was previously reporting some dizziness and lightheadedness. She is denying any chest pain at present. She is reporting some slight shortness of breath denies any cough. She denies any fever, body aches, or chills. She denies any abdominal pain. She denies any nausea, vomiting, or diarrhea. The patient states that she does not produce urine. She does have bilateral lower extremity amputations, though she denies any swelling in extremities. She does have some chronic pain and neuropathy, though she states this has not worsened or changed in nature. PAST MEDICAL HISTORY: 1. Previously insulin-dependent diabetes mellitus, though is now diet controlled. 2. End-stage renal disease on hemodialysis on Mondays, Wednesdays, and Fridays. 3. Diabetic neuropathy. 4. Chronic pain. 5. Depression. 6. Obstructive sleep apnea for which she states she wears nasal cannula 2 L at night. 7. Bilateral [id number]-[id number] amputations. PAST SURGICAL HISTORY: 1. Left toe amputation secondary to osteomyelitis. 2. 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 3. Hysterectomy. 4. AV shunt placement in left arm. SOCIAL HISTORY: The patient denies any alcohol, tobacco, or illicit drug use. FAMILY HISTORY: Positive for family members including her mother, father and siblings having a significant cardiac history. She states that all of her siblings as well as her mother and father have all had heart disease, heart attacks, and high blood pressure. ALLERGIES: Patient has allergies to Tylox, baclofen, hydralazine, Phenergan, Crestor, caffeine, Coreg, Flexeril, Lipitor, clindamycin, and sodium. HOME MEDICATIONS: 1. Ventolin HFA inhaler 90 mcg inhaler 2 puffs inhaled q.4-6 hours p.r.n. 2. Aspirin 81 mg p.o. daily. 3. Tricor 48 mg p.o. daily. 4. Gabapentin 600 mg p.o. b.i.d. 5. [place] 10 mg p.o. q.8 hours p.r.n. pain. 6. Zofran 4 mg p.o. p.r.n. as directed. 7. Protonix 40 mg p.o. daily. 8. Requip 3 mg p.o. b.i.d. 9. Effexor 75 mg p.o. daily. DIAGNOSTIC DATA: White blood cell count 9780, hemoglobin 11.2, hematocrit 36.6, platelet count is 209,000. Sodium 133, potassium 8.1, chloride 94, serum bicarb is 23, BUN 66, creatinine 4.7, GFR 10, glucose 270, calcium 9.2. Liver function tests within normal limits. Troponin 1.69. ProBNP is greater than 35,000. Lactate is 1.7. EKG showed normal sinus rhythm with sinus arrhythmia with ST abnormality at a rate of 70 with a QTc of 429. Please see above HPI for further notes on detailed interpretation. A chest x-ray showed no acute abnormalities. We are awaiting official radiology over-read. PHYSICAL EXAMINATION: VITAL SIGNS: Temperature 98.6 degrees, heart rate 75, respirations 20, blood pressure is 165/90, oxygen saturation is 97% on room air. GENERAL: Ms. Nelson is a pleasant 48-year-old female. She was resting in the ER stretcher. She was in no acute distress. She was awake, alert, and able to answer questions appropriately. HEENT: Head is atraumatic, normocephalic. Pupils are equal, round, reactive to light, were 3 mm bilaterally and brisk. Oral mucosa is moist. Oropharynx is clear. NECK: Supple. Trachea midline. No JVD noted. CARDIOVASCULAR: Patient has S1-S2 present. No murmurs, gallops, rubs appreciated, with a regular rate and rhythm. PULMONARY: Patient has symmetrical chest expansion bilaterally. Lung sounds are clear to auscultation in bilateral full hernandez. ABDOMEN: Soft. Does not appear to be distended. The patient does have a protuberant abdomen noted. She was nontender upon palpation. Bowel sounds are present in all 4 quadrants, were normoactive. EXTREMITIES: The patient had no cyanosis or edema noted. She does have bilateral qgamn-zep-bzbx amputations noted. Radial pulses are 2+ bilaterally. Motor and sensory is intact in all extremities. She does have a good thrill noted to her AV shunt on her left arm. INTEGUMENTARY: The patient's skin is pink, warm, and dry. NEUROLOGICAL: Patient is alert and oriented to person, place, time, and situation. She is able to move all extremities. She does have some generalized weakness noted though no focal neurological deficits are present. ASSESSMENT AND PLAN: 1. Hyperkalemia. For treatment of this the patient did receive 1 g calcium gluconate IV, 10 units of regular insulin IV, 1 amp of D50, 1 amp of sodium bicarbonate, and a hyperkalemic albuterol dose. Since that time we have repeated her potassium and it has improved and is currently 5.5. She has been placed in the ICU for close monitoring. She is receiving continuous cardiac telemetry, pulse oximetry, and frequent vital signs. We will place a consult for Dr. Fofana. We will await his evaluation and further recommendations for management. Also would like to add that we did ask the patient about any houv-mde-wvnzeyr medication use such as NSAIDs or not being compliant with a renal diet. The patient states that she has been previously educated on this and has been following her diet as instructed. We did go ahead and place a dietitian consult just for ensured education and understanding of appropriate diabetic and renal diet. 2. End-stage renal disease, on hemodialysis on Mondays, Wednesdays, and Fridays. We will continue treatment as mentioned above. We have placed a consult with Dr. Fofana. She will receive dialysis today as well. 3. Diabetes mellitus, now diet controlled. We did order a dietitian consult as previously mentioned. We will place her on diabetic diet. We will do pattern fingerstick blood sugars. We have ordered a hemoglobin A1c. 4. History of hypertension. The patient currently denies currently taking any medications for hypertension. She states that this was prior to being placed on dialysis and now since she has started dialysis that her blood pressure tends to run more on the low side. We will continue to monitor. 5. Diabetic neuropathy. We will continue her gabapentin. 6. Chronic pain. We will continue her [place] p.r.n. 7. Depression. We will continue her Effexor. 8. Deep venous thrombosis prophylaxis will be provided with heparin 5000 units subcutaneously q.12 hours. She has been placed in the ICU for close monitoring. Will do pattern fingerstick blood sugars, strict intake and output, incentive spirometry. She will have vital signs per protocol. Further orders and recommendations pending hospital course, diagnostic studies, and physician evaluation. Critical care time with this patient was 60 minutes. Dictated by CALI Zhou for Randa Coreas MD cc: Randa Coreas MD [facility]
--- NOTE | 2018-12-14 06:25 | Diag Imaging Result Doc PS360 ---
CHEST-1 VIEW - 12/13/2018 INDICATION: weakness COMPARISON: 12/09/2018 FINDINGS: Lung volumes are critically low. No infiltrates or edema. Heart size is borderline enlarged. IMPRESSION: Critically low lung volumes. Electronically signed by Fercho Gary 12/14/2018 6:23 AM
[2018-12-14] MEDS ORDERED: TIGHT: 0.2 ML/HR FOR DIALYSIS MISC PRN (06:29)
[2018-12-14] MEDS ORDERED: HEPARIN IV PRN (06:29)
[2018-12-14] MEDS ORDERED: NS 2,000 ML MISC PRN (06:29)
[2018-12-14] MEDS: PRILOSEC PO SCH (06:35)
[2018-12-14] MEDS: ASPIRIN EC PO SCH (08:40)
[2018-12-14] MEDS: REQUIP PO SCH ×2 (08:40→20:44)
[2018-12-14] MEDS: TRICOR PO SCH (08:40)
[2018-12-14] MEDS: EFFEXOR PO SCH (08:41)
[2018-12-14] MEDS: HEPARIN SUBQ SCH ×2 (08:41→20:44)
[2018-12-14] MEDS: NEURONTIN PO SCH ×2 (08:41→20:44)
[2018-12-14] MEDS: HUMALOG SUBQ SCH ×3 (11:31→20:59)
[2018-12-14 15:14] LABS: CK INDEX 7.6 (0.0-2.5); CK-MB 24.77 ng/mL (0.0-5.0)
--- NOTE | 2018-12-14 15:39 | NEPHROLOGY CONSULTATION ---
DATE: 12/14/2018 REASON FOR ADMISSION: Hyperkalemia. REASON FOR CONSULTATION: Assist with management, ESRD, hyperkalemia. CONSULTING PHYSICIAN: Dr. Coreas. HISTORY OF PRESENT ILLNESS: This is a 48-year-old female known to our service for end-stage renal disease on hemodialysis on a Wednesday, Wednesday, Wednesday schedule. She had her last dialysis treatment on Wednesday. She was seen in the clinic during a care of plan meeting on Wednesday and was having no issues at that time. However, later on that evening, she began having symptoms of weakness, dizziness, lightheadedness. She came into the emergency room where she was found to have a potassium of 8.1. She was treated medically for her potassium and had prompt improvement with followup potassium of 5.5. This patient has been admitted to the hospital with more than one episode of hyperkalemia. She did not have any ST depression or elevation, or widened QRS during this hospitalization when she first came in. When we be see her this morning, she is asymptomatic. She states that prior to having come in, she had eaten only some plain white rice during the day. She states that her primary doctor had taken her off insult. Today is her routine dialysis day. We will plan to treat her here shortly. PAST MEDICAL HISTORY: End-stage renal disease on hemodialysis Wednesday, Wednesday, Wednesday. Diabetes mellitus, previously insulin-dependent. Has now been taken off of her diabetic medication and her diabetes is diet controlled. Diabetic neuropathy, chronic pain, depression, obstructive sleep apnea, vascular disease. PAST SURGICAL HISTORY: Bilateral hqzbs-[id number]-brlc amputations, left toe amputation, osteomyelitis, hysterectomy, AV shunt in left upper extremity. ALLERGIES: Allergies are multiple. Please see chart for complete listing. These do include acetaminophen, baclofen, hydralazine, hydrocodone, promethazine, rosuvastatin, caffeine, carvedilol, atorvastatin, Flexeril, clindamycin, Paxil, trazodone. HOME MEDICATIONS: Listed as Ventolin, aspirin, Tricor, gabapentin, [place], Zofran, Protonix, Requip, Effexor. FAMILY HISTORY: Cardiac disease. SOCIAL HISTORY: No ETOH, tobacco, or illicit drug use. REVIEW OF SYSTEMS: Pertinent positives noted above in the HPI. Primarily, she had generalized weakness, dizziness, lightheadedness, shortness of breath. She has no symptoms today. PHYSICAL EXAMINATION: Vital Signs: Afebrile, pulse 97, respiratory rate 14, blood pressure 142/79. Intake and output have not been measured. General: This is a middle- aged female, sitting up in bed. She is awake and alert. She is in no acute distress. HEENT: Normocephalic, atraumatic. CINDY. Oral mucosa moist. Conjunctivae are pink. Neck: Supple without JVD. Cardiovascular: Regular rate and rhythm. There is no murmur or gallop. Pulmonary: She has equal excursion. She is clear bilaterally. She is on room air. Abdomen: Obese, soft. Positive bowel sounds. : Not inspected. Extremities: Bilateral BKA. No edema to the thighs. AV fistula in the left upper extremity with a thrill. Neurologic: Grossly nonfocal. Integumentary: Skin is warm and dry. LAB DATA: This morning's labs, sodium 135, potassium 5.5, chloride 95, CO2 of 23, BUN 67, creatinine 4.6. Her hemoglobin A1c was 8.5 with an estimated average glucose of 197. Her insulin level is 282. Calcium 9.1, phosphorus 5.1, magnesium 1.6, albumin 4.0. TSH of 2.6. ASSESSMENT AND PLAN: Endstage renal disease management. Today is her routine dialysis day. She will dialyze on a 2 K bath/ultrafiltration to her dry weight/4-hour treatment. The patient does not have other evidence of impaired flow within the fistula. Her potassium, with the multiple episodes of hyperkalemia, especially in the setting of very little amount of oral intake. Perhaps her hyperkalemia is related to low insulin levels. She may benefit from low-dose lantus. rg Dictated by CALI Harvey for Dany Fofana MD Face to face encounter, data reviewed, discussed with Linda Brasher on 12/14/18. I agree with the above assessment and plan of care. rg cc: Dany Fofana MD [facility]
[2018-12-14] MEDS ORDERED: HUMALOG SUBQ SCH (16:00)
[2018-12-15] MEDS: HUMALOG SUBQ SCH ×4 (06:47→20:36)
[2018-12-15] MEDS: PRILOSEC PO SCH (06:48)
[2018-12-15] MEDS ORDERED: HEPARIN IV PRN (08:00)
[2018-12-15] MEDS: NS 2,000 ML MISC PRN (08:15)
[2018-12-15 08:42] LABS: CALCIUM 8.4 mg/dL (8.8-10.2); CREATININE 4.1 mg/dL (0.5-0.9); POTASSIUM 5.2 mmol/L (3.5-5.1)
[2018-12-15] MEDS: REQUIP PO SCH ×2 (09:32→20:57)
--- NOTE | 2018-12-15 11:27 | DISCHARGE SUMMARY ---
ADMISSION DATE: 12/14/2018 DISCHARGE DATE: 12/15/2018 ADMISSION DIAGNOSES: 1. Hyperkalemia. 2. End-stage renal disease, on hemodialysis Wednesday, Wednesday, Wednesday. 3. Diabetes mellitus, diet controlled. 4. History of hypertension. 5. Diabetic neuropathy. 6. Chronic pain. 7. Depression. DISCHARGE DIAGNOSES: 1. Hyperkalemia. The hyperkalemia will be treated with Lantus per Dr. Fofana. 2. End-stage renal disease, on hemodialysis Wednesday, Wednesday, Wednesday. 3. Diabetes mellitus, diet controlled. 4. History of hypertension. 5. Diabetic neuropathy. 6. Chronic pain. 7. Depression. CONSULTATIONS: Dr. Fofana. SURGERIES AND PROCEDURES: None. HOSPITAL COURSE: Ms. Savannah Nelson is a 48-year-old, female with a medical history of end-stage renal disease who receives hemodialysis Wednesday, Wednesday, Wednesday. She also has a history of diabetes mellitus. She has been frequently having to be treated for hyperkalemia that would cause symptomatic bradycardia. Even had a recent admission earlier this month for the same thing. Her most recent discharge was on the and then had hemodialysis the Wednesday afterwards. That night, started having some intermittent chest pain. One was 20 minutes long, one was 40 minutes long. Took nitroglycerin and the pain subsided. Then Wednesday, woke up with weakness, dizziness, feeling lightheaded, short of breath. No chest pain at that time. Came to the emergency department for evaluation and the potassium level was 8.1. She has chronically elevated troponin secondary to her end-stage renal disease but there were no ST changes on her EKG. She was treated with calcium, insulin, D50, bicarb, and hyperkalemic albuterol nebulizer. Sent to the ICU for closer observation. Dr. Fofana was consulted and his recommendation was to add low dose of Lantus as it was felt that she had low insulin levels and that was part of the cause for her hyperkalemia. She will go home with that. She also received a round of hemodialysis while she was here. Potassium level this morning is down to 5.2 so she is going to go home with low-dose Lantus. DISCHARGE VITAL SIGNS: Temperature 97.6 degrees, heart rate 88, respiratory rate 20, blood pressure 138/76, O2 saturation 95% on 2 L nasal cannula. LABORATORY DATA: Sodium 133, potassium 5.2, BUN 52, creatinine 4.1, glucose 115, calcium 8.4. IMAGING: She had a chest x-ray that showed critically low lung volumes. She had several EKGs, all normal sinus rhythm, rate 70, QTc 429, sinus tachycardia 115, QTc 450. Her third one was sinus tachycardia, rate 115, QTc 459. DISCHARGE MEDICATIONS: 1. Aspirin 81 mg p.o. daily. 2. Effexor 75 mg p.o. daily. 3. Neurontin 600 mg p.o. twice daily. 4. [place] 10 p.o. t.i.d. 5. Protonix 40 mg p.o. daily. 6. Requip 3 mg p.o. twice daily. 7. Tricor 48 mg p.o. daily. 8. Albuterol 90 mcg inhaled p.r.n. 9. Zofran 4 mg p.o. p.r.n. 10. Lantus 10 units subcutaneous daily. DISCHARGE DIET: Renal, diabetic diet. DISCHARGE ACTIVITY: As tolerated. DISCHARGE PHYSICIAN FOLLOWUP: Dr. Fofana. DISCHARGE INSTRUCTIONS: If your condition changes, contact physician and/or return to the emergency department. Changes may include but are not limited to, shortness of breath, increased fatigue, excessive bleeding, unexplained weight loss or gain, unimaginable pain, signs or symptoms of infection. DISCHARGE DISPOSITION: Home. Dictated by CALI Watson for Dionisio Blanca MD Addendum: Patient seen and examined by myself. Agree with CALI note. It reflects my assessment and plan. Patient is being discharged in stable condition. Regarding persistent hyperkalemia will start Lantus on her that will help regulate her potassium according to Dr. Fofana. Will be seen in a week by PCP. If potassium persists high then we may need to consider to put her on a medication like Lokelma or Veltassa in a regular basis. cc: CALI Watson MD [facility]
[2018-12-15] MEDS: NEURONTIN PO SCH ×2 (13:06→20:57)
[2018-12-15] MEDS: HEPARIN SUBQ SCH ×2 (13:06→20:36)
[2018-12-15] MEDS: EFFEXOR PO SCH (13:06)
[2018-12-15] MEDS: ASPIRIN EC PO SCH ×2 (13:06→14:41)
[2018-12-15] MEDS: TRICOR PO SCH (13:07)
[2018-12-15] MEDS ORDERED: CARDIZEM IV ONE (13:28)
[2018-12-15] MEDS ORDERED: LOVENOX SUBQ ONE (14:33)
--- NOTE | 2018-12-15 14:45 | EKG Report ---
Test Performed on : 12/15/2018 2:08:02 PM Test Reason : ICU. No order in [place] Blood Pressure : / mmHG Vent. Rate : 086 BPM Atrial Rate : 086 BPM P-R Int : 154 ms QRS Dur : 100 ms QT Int : 368 ms P-R-T Axes : 043 043 156 degrees QTc Int : 440 ms Normal sinus rhythm. Possible Left atrial enlargement ST & T wave abnormality, consider lateral ischemia Abnormal ECG When compared with ECG of 15-DEC-2018 12:57, (Unconfirmed) Sinus rhythm. has replaced Atrial fibrillation. Confirmed by Abhi MARCH, M. Nakul ([id number]) on 12/16/2018 4:27:58 PM
--- NOTE | 2018-12-15 14:45 | EKG Report ---
Test Performed on : 12/15/2018 12:57:29 PM Test Reason : TACHYCARDIA Blood Pressure : / mmHG Vent. Rate : 123 BPM Atrial Rate : 163 BPM P-R Int : 000 ms QRS Dur : 098 ms QT Int : 320 ms P-R-T Axes : 000 037 169 degrees QTc Int : 458 ms Age and gender specific ECG analysis Atrial fibrillation. with rapid ventricular response. ST elevation, consider inferior injury or acute infarct ACUTE GA / STEMI Consider right ventricular involvement in acute inferior infarct Abnormal ECG When compared with ECG of 14-DEC-2018 02:44, (Unconfirmed) Atrial fibrillation. has replaced Sinus rhythm. Questionable change in QRS axis Confirmed by Abhi MARCH, M. Nakul ([id number]) on 12/16/2018 4:27:41 PM
[2018-12-15] MEDS: CARDIZEM PO SCH ×3 (14:55→21:18)
[2018-12-15] MEDS: NORCO-10 PO PRN (14:58)
--- NOTE | 2018-12-15 15:44 | NEPHROLOGY PROGRESS NOTE ---
DATE: 12/15/2018 SUBJECTIVE: Patient is sitting up in bed. She has no complaints. She states that she would like to go for an extra dialysis treatment for fluid volume today. OBJECTIVE: Vital Signs: Temperature 97.4 degrees, pulse 82, respiratory rate 18, blood pressure 126/72. Intake 720 mL. Output not measured. General: This is a middle-aged female sitting up in bed. Awake and alert. No acute distress. HEENT: Atraumatic, normocephalic. PERRL. Neck: Supple. No JVD. Cardiovascular: Regular rate and rhythm. Pulmonary: Clear bilaterally. Abdomen: Soft. Positive bowel sounds. Obese. : Not inspected. Minimal void. Extremities: Bilateral BKA. Integumentary: Skin is warm and dry. Laboratory Data: Sodium 133, potassium 5.2, CO2 25, creatinine 4.1. Her glucose has been as high as 277 over the last 24 hours. ASSESSMENT AND PLAN: Hyperkalemia. The patient has endstage renal disease. The patient has been taken off her insulin drip by her primary. She had a dramatic improvement with therapy. Her sugars have actually been high enough she has warranted remaining on a sliding scale. We would advocate using low dose Lantus to assist with both her blood sugars and her hyperkalemia. I discussed with her primary. She will be seen by her primary after discharge. Will check her labs as well as outpatient. Dictated by CALI Harvey for Dany Fofana MD Face to face encounter, data reviewed, discussed with Linda Brasher on 12/15/18. I agree with the above assessment and plan of care. cc: Dany Fofana MD [facility]
[2018-12-15 15:48] LABS: CK INDEX 5.5 (0.0-2.5); CK-MB 10.06 ng/mL (0.0-5.0)
--- NOTE | 2018-12-15 16:01 | CARDIOLOGY CONSULTATION ---
DATE: 12/15/2018 REQUESTED BY: Hospitalist Service. REASON: Chest pain, abnormal EKG, atrial fibrillation paroxysmal, and possible myocardial infarction. CHIEF COMPLAINT: Chest pain. HISTORY: A 48-year-old female who is known to me. I had seen her at my office on 08/11/2018 as a referral from Dr. Welch because she had been complaining of discomfort in the chest. At that time, we recommended a myocardial perfusion stress test, which she took, and that study was done on 09/01/2018 showed no evidence of ischemia. Since then, the patient has been admitted to this hospital on 3 occasions, first between 10/20 and 10/22 because of nausea, vomiting, and diarrhea, then on 12/09 through 12/10 because of hyperkalemia. At the end of that observation, she actually developed atrial fibrillation. Then, she was readmitted on 12/14, which is yesterday, because she presented complaining of recurrent chest pains and again she was found hyperkalemic. The pains are substernal, partially relieved by nitroglycerin. Upon presentation, her potassium was 8.1 mEq/L. BUN was 66, creatinine 4.7. They have managed that, however she has experienced an episode of paroxysmal atrial fibrillation after dialysis today. Her CPK yesterday was noted to have jumped from 92 on admission to 327 units/L. Her CK-MB fraction was positive at 24.77 ng/mL with an index of 7.6%, which is abnormal. Her troponin levels have also crept from 1.6 on admission to 2.180 yesterday. They have requested stat troponin and CPKs today. After finishing dialysis today, she developed chest pain with atrial fibrillation and rapid response and ST abnormality on ECG. She was given IV cardizem and developed a 6 second conversion pause. she is back in SR. The patient was feeling more comfortable when I saw her at 2:45 p.m. PAST MEDICAL HISTORY: The patient has a longstanding history of hypertension. She also has longstanding history of diabetes mellitus type 1. She has neuropathy, hypothyroidism, chronic kidney disease and currently she is on hemodialysis. She has hyperlipidemia.She is obese, probably morbidly obese. PAST SURGICAL HISTORY The patient has had bilateral below-knee amputation in the past because of osteomyelitis of both feet. She has had a dialysis access graft created in the left upper extremity. MEDICATIONS: Her home medications included albuterol, aspirin 81 daily, Tricor 48 mg daily, gabapentin 300 twice a day, hydrocodone as needed, Protonix 40 mg daily, Requip 3 mg b.i.d., Effexor 75 mg daily, insulin SoloSTAR 10 units daily. ALLERGIES: Allergic to baclofen, hydralazine, promethazine, Crestor, caffeine, carvedilol, cyclobenzaprine, clindamycin, trazodone, atorvastatin. REVIEW OF SYSTEMS: Is very limited. She does have prosthetic legs, however, they were just given to her in May and she has only had limited therapy to be able to walk on those artificial legs. The patient has also a history of sleep apnea syndrome and is using a CPAP mask. SOCIAL HISTORY: The patient is single. She has no children.The patient is not a smoker. FAMILY HISTORY: Mother had coronary heart disease and bypass. PHYSICAL EXAMINATION: Vital signs: Blood pressure 139/73, pulse 90, respirations 22, temperature is 98.1. General: She is obese, sitting upright in no distress. HEENT: Unremarkable. Chest: Sounds clear to auscultation and percussion. Heart: Sounds are regular and rhythmic. I do not hear a gallop or murmur. Abdomen: Her abdomen is obese, nontender. Extremities: Showed evidence of bilateral below-knee amputation. She does have palpable femoral pulses. Neurologic exam: Follows commands, moves all 4 extremities. BLOOD WORK: Today, sodium is 133, potassium 5.2, BUN 52, creatinine 4.1. EKG as I said initially showed atrial fibrillation with a marked ST abnormality and then she converted to sinus rhythm after a long 6 second pause. They discontinued Cardizem that had been started. IMPRESSION: 1. Patient presenting with chest pain, possible [id number] myocardial infarction. 2. Morbid obesity. 3. End-stage renal disease on hemodialysis. 4. Diabetes mellitus type 1. 5. History of hypertension. 6. Sleep apnea syndrome. 7. Hyperlipidemia unable to take statins. 8. Paroxysmal atrial fibrillation with conversion pause. RECOMMENDATIONS: Since the patient appears to have elevation of cardiac enzymes with ST abnormality, I will treat her as a case of [id number] myocardial infarction. We are going to put her on Lovenox, aspirin, and will probably arrange for a heart catheterization in the morning. At this time, she is stable, back in sinus rhythm. Further advice will be forthcoming. I explained to her the benefits, risks, and complications of heart catheterization. cc: Warren Lopez MD [facility]TD[facility]
[2018-12-15] MEDS ORDERED: NITROGLYCERIN SL PRN (21:12)
[2018-12-16] MEDS: CARDIZEM PO SCH ×3 (03:40→16:29)
[2018-12-16] MEDS: HUMALOG SUBQ SCH ×4 (05:43→16:30)
[2018-12-16] MEDS: PRILOSEC PO SCH (06:14)
[2018-12-16] MEDS ORDERED: NS 2,000 ML MISC PRN (07:31)
[2018-12-16] MEDS ORDERED: TIGHT: 0.2 ML/HR FOR DIALYSIS MISC PRN (07:31)
[2018-12-16] MEDS ORDERED: HEPARIN IV PRN (07:31)
--- NOTE | 2018-12-16 07:42 | EKG Report ---
Test Performed on : 12/16/2018 06:50:58 AM Test Reason : AFIB/Chest pain Blood Pressure : / mmHG Vent. Rate : 076 BPM Atrial Rate : 076 BPM P-R Int : 166 ms QRS Dur : 096 ms QT Int : 392 ms P-R-T Axes : 010 035 151 degrees QTc Int : 441 ms Normal sinus rhythm. ST & T wave abnormality, consider lateral ischemia Abnormal ECG When compared with ECG of 15-DEC-2018 14:08, (Unconfirmed) No significant change was found Confirmed by Rocael Moe MD ([id number]) on 12/16/2018 4:28:40 PM
[2018-12-16] MEDS: REQUIP PO SCH (08:00)
[2018-12-16] MEDS: EFFEXOR PO SCH (08:01)
[2018-12-16] MEDS: NEURONTIN PO SCH (08:01)
[2018-12-16] MEDS: ASPIRIN EC PO SCH (08:01)
[2018-12-16] MEDS: TRICOR PO SCH (08:01)
--- NOTE | 2018-12-16 08:52 | CARDIOLOGY PROGRESS NOTE ---
DATE: 12/16/2018 CHIEF COMPLAINT: Chest pain. SUBJECTIVE: Ms. Nelson had an uneventful night. Her troponins are still holding around 2.6. Her CPKs have clearly come down from a peak of 327 down to 113. That rise and fall is consistent with a non-ST myocardial infarction. Her EKG this morning shows a sinus rhythm with ST abnormality in leads 1 and AVL, nonspecific. She is not having any chest pain, and she is resting comfortably. OBJECTIVE: Blood pressure is 134/69, her pulse is 81, her temperature is 98.8, respirations 18. She is awake, alert, in no distress. HEENT is unremarkable. Chest sounds clear to auscultation and percussion. Heart sounds are regular and rhythmic. No gallop or murmur. Abdomen is obese. Extremities showed bilateral knee amputation. Neurologic: She is fully alert, follows commands. IMPRESSION: 1. The patient presented with hyperkalemia and chest pains. She has ruled in for myocardial infarction. (Non ST ME) 2. Abnormal EKG. 3. History of severe renal disease, end stage renal disease on dialysis. 4. Diabetes mellitus type 1. 5. Bilateral knee amputation, status post. 6. Morbid obesity. 7. Sleep apnea syndrome. 8. Paroxysmal atrial fibrillation with a conversion pause. RECOMMENDATIONS: At this time, my advice is to pursue left heart catheterization. Benefits, risks, and complications were explained. I have discussed with Dr. Sigala the case, and he is going to approach her through the right femoral artery. I recommend that because her right arm is really swollen, and the left arm is used for dialysis access. Further advice will be forthcoming. After her cardiac catheterization, she will go for dialysis. We will give further advice after the heart catheterization is completed, and we will review the films. cc: Warren Lopez MD [facility]
[2018-12-16 09:02] LABS: BASO# 0.03 X1000 (0.0-0.2); BASO% 0.5 % (0.0-0.8); EOS# 0.42 X1000 (0.0-0.7); EOS% 7.4 % (0.0-10.0); HEMATOCRIT 34.1 % (37.0-47.0); HEMOGLOBIN 10.1 g/dL (12.0-16.0); LYMPH# 1.56 X1000 (1.2-3.4); LYMPH% 27.4 % (20.5-51.1); MCH 28.2 PG (27-31); MCHC 29.6 g/dL (33-37); MCV 95.3 FL (81-99); MONO# 0.65 X1000 (0.11-0.59); MONO% 11.4 % (1.7-9.3); MPV 9.6 FL (7.4-10.4); NEUT# 3.04 X1000 (1.4-6.5); NEUT% 53.3 % (42.2-75.2); PLT 233 X1000 (130-400); RBC 3.58 XMIL (4.2-5.4); RDW 15.5 % (11.5-14.5)
[2018-12-16] MEDS: HEPARIN SUBQ SCH (09:06)
[2018-12-16] MEDS ORDERED: HEPARIN 1000 UNITS/NS 2,000 UNIT/1,000 ML IV.SOLN ONE (09:23)
[2018-12-16] MEDS ORDERED: XYLOCAINE 1% ONE ×2 (09:24→11:00)
[2018-12-16] MEDS ORDERED: LANTUS INSULIN SUBQ SCH (09:30)
--- NOTE | 2018-12-16 09:52 | PROGRESS NOTE ---
DATE: 12/16/2018 SUBJECTIVE: The patient presented yesterday after she was discharged from the hospital while she was in the intensive care unit. She started complaining of chest pain. The EKG that we have done emergently shows some ST segment changes. She also was noticed to have very elevated troponin's. Today upon my examination, she is not having any chest pain or any chest discomfort, or any fever or chills. OBJECTIVE: Vital Signs: Temperature 98.8 degrees, heart rate 90, respiratory rate 17, and blood pressure 121/100. O2 saturation 100% on 2 L nasal cannula. General: This is a chronically ill- looking and obese 48-year-old female lying in bed in no acute distress. Cardiovascular: S1, S2 heard. No murmurs, gallops, or rubs. Regular rate and rhythm. Respiratory: Clear bilaterally to auscultation. No work of breathing or using accessory muscles. Abdomen: Soft and nontender to palpation. Bowel sounds present. No organomegaly. Extremities: Patient has no cyanosis or edema noted. She does have bilateral ouvbb-jwz-ejbq amputations noted. Neurological: Patient alert and oriented x3. Moves all 4 extremities. LABORATORY DATA: The troponin has been checked the day before yesterday and today 2.1, 2.6 and 2.6. Renal profile is still pending. ASSESSMENT AND PLAN: 1. Hyperkalemia. The patient's labs are still pending, but she had dialysis yesterday. Potassium from yesterday was 5.2. We will see what the renal profile shows today. 2. Diabetes mellitus type 2. We will restart Lantus. In this case, 10 units daily plus Accu- Chek before meals and also at bedtime and sliding scale insulin as well. 3. End-stage renal disease on dialysis. Dr. Fofana is planning to provide dialysis for this patient after this patient has a cardiac catheterization. I think if everything is okay in the cath. I think she should be good to go today. In the meantime, we will monitor this patient in the intensive care unit. 4. Paroxysmal atrial fibrillation. At this point, the patient is stable. cc: MD SAMUEL Keyes
[2018-12-16 10:03] LABS: INR 1.07
[2018-12-16 10:04] LABS: PTT 23.5 Seconds (22.3-41.8)
[2018-12-16 10:05] LABS: ALBUMIN 3.2 g/dL (3.5-5.0); CALCIUM 8.6 mg/dL (8.8-10.2); CREATININE 3.8 mg/dL (0.5-0.9)
[2018-12-16] MEDS ORDERED: ANESTHESIA PB SET 88 IN 5742 ONE (10:29)
[2018-12-16] MEDS ORDERED: DILAUDID ONE (10:29)
[2018-12-16] MEDS ORDERED: NS 250 ML ONE (10:29)
[2018-12-16] MEDS ORDERED: VERSED ONE (10:29)
--- NOTE | 2018-12-16 12:11 | CARDIAC CATH REPORT ---
PROCEDURE NAME: - INDICATION FOR THE STUDY: Non ST elevation GA. PROCEDURES PERFORMED: 1. Left heart catheterization. 2. Selective coronary angiography. 3. Left ventriculogram. PROCEDURE IN DETAIL: Ms. Nelson is a 48-year-old white female, who was brought to the catheterization laboratory in fasting state. Informed consent was obtained. Prepped in usual fashion. She was initially anesthetized over the right femoral artery, but access was unable to be obtained. We moved over to the left groin with anesthetic applied over the left femoral area. Access was gained via modified Seldinger technique in the left femoral artery. Sheaths and catheters were introduced. Hemodynamic measurements made in the ascending thoracic aorta. Coronary angiography was performed in multiple views using JL3.5 and JR4 diagnostic catheters. A left ventriculogram and left heart catheterization were performed using the JR4. At the conclusion of the procedure, all sheaths and catheters were removed. Pressure was held. Good hemostasis. Total 5-10 mL of blood loss. There were 80 mL of IV contrast. FINDINGS: 1. The left main originates from the left coronary cusp. The left main appears to have a distal 50% to 60% percent lesion that is somewhat hazy and difficult to visualize. It occurs essentially at the origin of a small non dominant circumflex. There is what appears to be ostial 10 to 20 percent disease as well. 2. Left anterior descending originates from the left main. There is severe disease in a first septal. Severe tandem lesions noted in the mid vessel, as well as late mid vessel, early distal vessel, with mild to moderate diffuse disease between. There is a moderate size first diagonal with severe ostial proximal disease, as well as severe diffuse small-vessel disease. 3. Circumflex originates from the left main. It is a non dominant vessel that appears to originate from the distal left main lesion. There is mild to moderate diffuse disease noted throughout, but no obstructive lesions it appears. 4. Right coronary originates from the right coronary cusp. It is large and dominant. There is mild diffuse disease in the proximal vessel, as well as the majority of the mid vessel. In the distal vessel there are tandem severe lesions, as well as a severe ostial PDA lesion. There appears to be a moderate to large RV branch that has potentially severe ostial disease as well. There appears to be some washout of contrast in the more distal branches of the right coronary. This is likely due to some left to right collaterals although these are likely very small as they are not visualized. 5. The left ventriculogram was somewhat poor quality. Suggested to be an EF of around 50%. 6. Aortic blood pressure 136/64 with a mean of 90. Left ventricle pressure 148/16 with an LVEDP of 35. She is due for hemodialysis today. ASSESSMENT: Ms. Nelson is a 48-year-old diabetic end-stage renal patient, who presented with non ST elevation myocardial infarction. PLAN: The patient has multi-vessel disease involving significant portions of the left anterior descending, as well as the right coronary, and what appears to be a possible distal left main lesion. We will have the films reviewed in [place] for further consideration for intervention, potentially bypass. The patient will return to the floor for usual postprocedure convalescence. cc: Joesph Sigala MD [facility]
[2018-12-16] MEDS: NS 2,000 ML MISC PRN (12:15)
--- NOTE | 2018-12-16 15:33 | NEPHROLOGY PROGRESS NOTE ---
DATE: 12/16/2018 SUBJECTIVE: She was asleep on my arrival but easily arousable. No chest pain, palpitations or shortness of breath. She is undergoing a cardiac evaluation. OBJECTIVE: Vital signs: Blood pressure 136/69, heart rate 77, respirations 15, afebrile. General: No acute distress. Skin: Warm and dry. Neck veins are not appreciable. Heart: Regular but distant. Lungs: Equal. No crackles. Abdomen: Soft. Bowel sounds present. Extremities: No edema, clubbing or cyanosis. IMPRESSION: Chronic kidney disease 5D. PLAN: Continue her routine dialysis schedule. Potassium is 5.0 today. Continue some insulin at least on a daily basis and we will see if this does not help manage her hyperkalemia. Otherwise, continue care. Blood pressure is acceptable. cc: Dany Fofana MD
[2018-12-16 18:32] VITALS: BP 157/77
--- NOTE | 2018-12-19 12:40 | DISCHARGE SUMMARY ---
ADMISSION DATE: 12/14/2018 DISCHARGE DATE: 12/16/2018 ADDENDUM REPORT: This is an addendum for discharge summary. Please review the summary dictated the day before. DIAGNOSES: 1. Hyperkalemia. 2. End-stage renal disease, on dialysis. 3. Diabetes mellitus, on Lantus. 4. Hypertension. 5. Diabetic neuropathy. 6. Chronic pain. 7. Depression. 8. Acute coronary syndrome. Basically, this patient as we mentioned in our previous discharge summary was admitted again for hyperkalemia so she received 2 sessions of dialysis, and that number corrected. Date of discharge that afternoon, the patient was experiencing some chest pain so we emergently decide to do troponins x3 plus EKG, which basically showed some T-inversions so we called Cardiology, who decided to do a cardiac catheterization. It showed multiple-vessel disease involving significant portions of the left anterior descending artery, so the Cardiology service decided to send this patient to [facility] for further evaluation and treatment. At this point, as mentioned before, patient is going to be transferred to Cardiology service for further treatment. cc: Dionisio Blanca MD MTDD
== END 2018-12-16 20:00 | disposition short-term general hospital (02) | DRG 640 ==
LOC: SUPCPDRO → ED 21:58 → SUATTDRO 12-14 01:05 → ICU 12-14 01:05
PROVIDERS: ATTEND Internal Medicine

== ENCOUNTER 2019-04-02 10:49 | Inpatient (IN) ==
--- NOTE | 2019-04-02 11:26 | Diag Imaging Result Doc PS360 ---
EXAM: CHEST-2 VIEWS HISTORY: cough some sob TECHNIQUE: Two views COMPARISON: 02/06/2019 FINDINGS: Poor inspiratory effort. No cardiomegaly. Mild vascular distention. No pleural effusions. IMPRESSION: Mild pulmonary edema. Electronically signed by Issa Cook 04/02/2019 11:23 AM
[2019-04-02 14:33] LABS: BE -1.6 mmoll (-3.0-3.0); BLOOD TYPE ARTERIAL; HCO3-(ACT) 23.7 mmoll (20.0-26.0); METHB 0.3 % (0.0-1.5); O2(CT) 15.2 mL/dL (15.0-23.0); O2HB 96.3 % (95.0-99.0); PCO2(98.6) 45 mmHg (35-45); PO2(98.6) 123 mmHg (60-100); SAMPLE BLOOD; SAO2 97.4 % (95.0-100.0); THB 11.1 g/dL (11.5-17.4); pH(98.6) 7.34 (7.35-7.45)
[2019-04-02 14:37] LABS: ALLEN TEST NO; MODALITY CANNULA
[2019-04-02 14:50] LABS: BASO# 0.03 X1000 (0.0-0.2); BASO% 0.4 % (0.0-0.8); EOS# 0.41 X1000 (0.0-0.7); EOS% 5.1 % (0.0-10.0); HEMATOCRIT 37.1 % (37.0-47.0); HEMOGLOBIN 11.1 g/dL (12.0-16.0); IMM GRAN# 0.02 X1000 (0.0-0.04); IMM GRAN% 0.2 % (0.0-0.5); LYMPH# 1.72 X1000 (1.2-3.4); LYMPH% 21.3 % (20.5-51.1); MCH 27.7 PG (27-31); MCHC 29.9 g/dL (33-37); MCV 92.5 FL (81-99); MONO# 0.59 X1000 (0.11-0.59); MONO% 7.3 % (1.7-9.3); MPV 10.2 FL (7.4-10.4); NEUT# 5.29 X1000 (1.4-6.5); NEUT% 65.7 % (42.2-75.2); PLT 138 X1000 (130-400); RBC 4.01 XMIL (4.2-5.4); RDW 15.3 % (11.5-14.5); WBC 8.06 X1000 (4.8-10.8)
[2019-04-02 15:04] LABS: CALCIUM 8.5 mg/dL (8.8-10.2); CREATININE 7.4 mg/dL (0.5-0.9)
[2019-04-02 15:11] LABS: POTASSIUM 7.5 mmol/L (3.5-5.1)
--- NOTE | 2019-04-02 15:18 | PROVIDER DOCUMENTATION ---
This chart was entered by Anastasia Brandt Scribe, acting as scribe for Elton Kirkpatrick MD. HPI-General Adult - General Chief Complaint: General Adult Stated Complaint: SOB Time Seen by Provider: 04/02/19 13:47 Source: patient Allergies/Adverse Reactions: Patient Allergies Allergy/AdvReac Type Severity Reaction Status Date / Time baclofen Allergy DIFFICULTY Verified 04/02/19 12:56 AWAKENING hydralazine Allergy HALLUCINATI Verified 04/02/19 12:56 ONS oxycodone [From Tylox] Allergy HIVES Verified 04/02/19 12:56 promethazine [From Phenergan] Allergy DIFFICULTY Verified 04/02/19 12:56 AWAKENING caffeine AdvReac Intermediate RAPID Verified 04/02/19 12:56 HEART RATE carvedilol [From Coreg] AdvReac Intermediate RAPID Verified 04/02/19 12:56 HEART RATE cyclobenzaprine HCl * AdvReac Intermediate DIARRHEA Verified 04/02/19 12:56 [From Flexeril] sodium AdvReac Intermediate EXTREME Verified 04/02/19 12:56 SWELLING atorvastatin calcium * AdvReac RASH Verified 04/02/19 12:56 [From Lipitor] clindamycin AdvReac DIARRHEA Verified 04/02/19 12:56 paroxetine [From Paxil] AdvReac Unknown Verified 04/02/19 12:56 trazodone AdvReac HALLUCINATI Verified 04/02/19 12:56 ONS Home Medications: Home Medication List Medication Instructions Recorded Confirmed Last Taken Type Gabapentin 600 mg PO TID 04/05/17 04/02/19 07/27/18 History Pantoprazole [Protonix] 40 mg PO DAILY 07/26/17 04/02/19 07/27/18 History Ropinirole HCl [Requip] 3 mg PO TID 06/28/18 04/02/19 07/27/18 History Aspirin [Aspir-Low] 81 mg PO DAILY 07/27/18 04/02/19 07/17/18 History Venlafaxine [Effexor] 75 mg PO DAILY 07/27/18 04/02/19 07/27/18 History Albuterol Sulfate [Ventolin Hfa] 90 mcg INH PRN PRN 10/19/18 04/02/19 12/09/18 History Insulin Glargine,Hum.rec.anlog 10 unit SQ DAILY #5 insuln.pen 12/15/18 04/02/19 Unknown Rx [Lantus Solostar] Glipizide E.r. [Glucotrol Xl] 2.5 mg PO DAILY 01/22/19 04/02/19 Unknown History Quetiapine Fumarate 25 mg PO QHS 01/22/19 04/02/19 Unknown History Rosuvastatin Calcium 10 mg PO DAILY 01/22/19 04/02/19 Unknown History Sevelamer Carbonate [Renvela] 4 tab PO AC 01/22/19 04/02/19 Unknown History Cariprazine HCl [Vraylar] 3 mg PO DAILY 04/02/19 04/02/19 Unknown History - History of Present Illness -Gen Adult Nature of Presenting Problems: 48 y/o female presents to the ED with complaint of SOB. The patient gives a history of DM, HTN, ME, stent placement x 7, CHF, kidney failure, and bilateral BKA and she is on 2L O2 prn at home. The patient states she had to leave dialysis Wednesday due to diarrhea with SOB worsening today. Denies chest pain, fever, and cough. Onset/Duration: reports: this morning Timing: reports: still present Associated Symptoms: denies: chest pain, cough, fever/chills, nausea, vomiting Similar Symptoms Previously?: Yes Recently seen or treated by another doctor?: No Review of Systems - Adult - REVIEW OF SYSTEMS - ADULT Constitutional: denies: chills, fever, night sweats Eyes: reports: no symptoms reported Ears, Nose, Mouth & Throat: reports: no symptoms reported Cardiovascular: denies: chest pain, palpitations, syncope Respiratory: reports: shortness of breath. denies: cough, hemoptysis Gastrointestinal: denies: abdominal pain, nausea, vomiting Genitourinary: reports: no symptoms reported Musculoskeletal: reports: no symptoms reported Integumentary: reports: no symptoms reported Neurological: reports: no symptoms reported Psychiatric: reports: no symptoms reported Endocrine: reports: no symptoms reported Hematologic/Lymphatic: reports: no symptoms reported Allergic/Immunologic: reports: no symptoms reported All Other Systems: Reviewed and Negative Past History - Adult - PAST MEDICAL HISTORY-ADULT Review of Records: reports: Nursing Assessment Review, Medications Reviewed Major Childhood Illnesses: reports: denies history Cardiovascular: reports: HTN, hyperlipidemia Respiratory: reports: sleep apnea, other (sleep apnea) Gastrointestinal: reports: denies history Obstetrical/Gynecological: reports: denies history Genitourinary: reports: dialysis, kidney disease Musculoskeletal: reports: chronic pain (low back) Neurological: reports: other (diabetic neuropathy) Psychiatric: reports: depression Endocrine/Immune: reports: Diabetes, thyroid disorder (hypothyroid) Other Conditions: reports: denies history - PRIOR SURGERIES/PROCEDURES Surgical/Procedure History: reports: hysterectomy, orthopedic (extremity) (BKA), other (toe nail removal; toe amputation) - PRIOR HOSPITALIZATIONS Prior Hospitalizations: reports: for other non-related - IMMUNIZATION STATUS Childhood Immunizations: See Nurse Assessment Flu Vaccine: See Nurse Assessment - FAMILY HISTORY Family History: reviewed, not pertinent - SOCIAL HISTORY Smoking: non-smoker Physical Exam-General - PHYSICAL EXAM-ADULT Initial Vital Signs Reviewed: Yes - CONSTITUTIONAL General Appearance: alert, no apparent distress (on 2L o2), obese - RESPIRATORY Respiratory: lungs clear, normal breath sounds. negative: rales, rhonchi, wheezing - CARDIOVASCULAR Cardiovascular: regular rate, rhythm, no gallop, no murmur - MUSCULOSKELETAL Extremity: other (bilateral BKA) - SKIN Integumentary: warm/dry. negative: cyanosis, diaphoresis Progress - PLAN OF CARE/RESULTS Progress/Plan/Lab Results: Vital Signs - 8 hr 04/02/19 10:49 04/02/19 13:08 Temperature 98 F 97.9 F Pulse Rate 67 67 Respiratory Rate 19 19 Blood Pressure 182/83 190/94 O2 Sat by Pulse Oximetry 100 100 Orders Category Date Time Status CHEST-2 VIEWS [RAD] Stat Exams 04/02/19 10:57 Completed 1507: Lab called to report potassium 7.5. Result Diagrams: 04/02/19 14:30 04/02/19 14:30 - EKG 1 Time of EKG reading by physician:: 14:50 EKG Read and Signed by:: Elton Kirkpatrick EKG Interpretation (*Must complete 3 of following elements*): Abnormal Rate: 64 (no STEMI ) Rhythm: NSR Smyer: normal Comments: low voltage QRS, cannot r/o anterior infarct age undetermined - XRAY 1 XRAY Study: Chest (EXAM: CHEST-2 VIEWS HISTORY: cough some sob TECHNIQUE: Two views COMPARISON: 02/06/2019 FINDINGS: Poor inspiratory effort. No cardiomegaly. Mild vascular distention. No pleural effusions. IMPRESSION: Mild pulmonary edema. Electronically signed by Issa Cook 04/02/2019 11:23 AM) - CONSULTS/PCP/HOSPITALIST Notification #1 *Consult/PCP/Hospitalist*: Dr. Coker, Hospitalist Time Discussed: 15:14 Reason/Comments: Potassium 7.5, creatinine 7.4 Consult Disposition: Admit (to [facility]) Departure - Departure Date of Disposition Decision: 04/02/19 Time of Disposition Decision: 15:17 DIAGNOSIS: Hyperkalemia, CKD (chronic kidney disease), stage III, Chronic kidney disease, stage 4 (severe), Shortness of breath Pulmonary edema Qualifiers: Chronicity: acute Qualified Code(s): J81.0 - Acute pulmonary edema Disposition: ADMITTED INPATIENT 09 Certified Medical Emergency: Emergent Condition: Fair - Critical Care Note This patient required my direct & personal management of CC.: No Attestation - Physician/ DELBERT Attestation Patient care was provided by Advanced Practice Provider:: No The physician spent face to face time with patient:: Yes Advanced Practice Provider documentation review:: Supervising physician onsite and consulted in the evaluation and care of this patient. The physician did have a face to face encounter with the patient. This chart was documented by the indicated scribe, (Anastasia Brandt, Sonia) and accurately reflects the services I performed and decisions made by me, Elton Kirkpatrick MD, as attested by the provider's signature.
--- NOTE | 2019-04-02 16:11 | EKG Report ---
Test Performed on : 04/02/2019 2:50:19 PM Test Reason : SOB Blood Pressure : / mmHG Vent. Rate : 064 BPM Atrial Rate : 064 BPM P-R Int : 194 ms QRS Dur : 094 ms QT Int : 452 ms P-R-T Axes : 001 052 012 degrees QTc Int : 466 ms Normal sinus rhythm. Low voltage QRS Cannot rule out Anterior infarct (cited on or before 06-FEB-2019) Abnormal ECG When compared with ECG of 06-FEB-2019 04:51, (Unconfirmed) Questionable change in initial forces of Anterior leads Unconfirmed Result
--- NOTE | 2019-04-02 17:25 | HISTORY AND PHYSICAL ---
ADDENDUM: Patient seen and examined by myself. Full note dictated and discussed with nurse practitioner. Patient notes that as she left dialysis early on Wednesday. States she was not feeling well. Today, she notes that she has had increased shortness of breath. She returned to the ER. Her potassium was noted to be 7.9. We are going to admit her to the hospital, transfer her to [facility], consult nephrology did as patient may need to go to dialysis before her normal appointment tomorrow morning. cc: Dale Coker MD
[2019-04-02] MEDS ORDERED: TYLENOL PO PRN (17:26)
[2019-04-02] MEDS ORDERED: VENTOLIN HFA INH PRN (17:26)
[2019-04-02] MEDS ORDERED: ZOFRAN IV PRN (17:26)
--- NOTE | 2019-04-02 17:30 | HISTORY AND PHYSICAL ---
PRIMARY CARE PROVIDER: None. PARTS ANALYST: Dr. Fofana. TELEMETRY TECHNICIAN: Dr. Lopez. HISTORY OF PRESENT ILLNESS: Ms Nelson is a 48-year-old female with a past medical history of insulin-dependent diabetes mellitus, end-stage renal disease on hemodialysis Wednesday, Wednesday, Wednesday, diabetic neuropathy, bilateral [id number]-[id number]-toyz amputations, hypothyroidism, obstructive sleep apnea, diabetic neuropathy, situational depression and chronic pain, coronary artery disease status post 7 stents in December of this past year with a non STEMI at [facility]. She reports this past Wednesday she did not complete all of her dialysis session secondary to not feeling well and around 10 a.m. this morning she became short of breath, called the ambulance who brought her to the nearest ED. Workup here revealed a potassium of 7.5, a BUN of 94 and a creatinine of 7.4. ProBNP of greater than 35,000 and a chronically elevated troponin of 0.114. She denies any cardiac type chest pain. She reports her breathing is better with supplemental O2. No fever. No chills. No cough. No heart palpitations. No nausea, no vomiting, no diarrhea, no constipation. She will be transferred to [facility] with a consultation with Nephrology and hemodialysis. PAST MEDICAL HISTORY: Insulin-dependent diabetes mellitus, end-stage renal disease hemodialysis Wednesday, Wednesday, Wednesday. Diabetic neuropathy, bilateral [id number] amputations, hypothyroidism, obstructive sleep apnea with nighttime O2, diabetic neuropathy, depression and chronic pain, coronary artery disease status post 7 stents. 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 SOCIAL HISTORY: No tobacco, alcohol or illicit drug use. ALLERGIES: To baclofen, hydralazine, oxycodone, Phenergan, caffeine, Coreg, Flexeril, sodium, Lipitor, clindamycin, Paxil and Trazodone. HOME MEDICATIONS: Albuterol sulfate, aspirin, Vraylar, gabapentin, Glucotrol, Lantus, Protonix, Requip, quetiapine, Crestor, Renvela, Effexor. PHYSICAL EXAMINATION: VITAL SIGNS: Temperature is 97.9 degrees, heart rate 61, respirations 18, blood pressure 185/70, O2 is 100% on 2 L nasal cannula. GENERAL: Ms. Nelson is a 48-year-old female who is sitting up in the bed in no acute distress. HEENT: Atraumatic, normocephalic. PERRL. NECK: Supple, trachea midline. CARDIOVASCULAR: S1, S2 appreciated. No murmurs, gallops, rubs noted. RESPIRATORY: Lung sounds clear. Bilaterally decreased in the bases. GI: Obese, soft, nontender, nondistended. Positive bowel sounds 4 quadrants. EXTREMITIES: Lower extremities bilateral amputations with prosthetics in place. NEUROLOGIC: No focal deficits noted. DIAGNOSTIC DATA: Chest x-ray is mild pulmonary edema. EKG normal sinus rhythm at 64 beats per minute. LABORATORY DATA: White count 8, hemoglobin and hematocrit 11 and 37, platelet count is 138,000. Sodium 135, potassium 7.5, BUN 94, creatinine 7.4, blood glucose is 153. Troponin 0.114. ProBNP is greater than 35,000. ASSESSMENT AND PLAN: 1. Hyperkalemia. The patient will be transferred to [facility] for hemodialysis. 2. End-stage renal disease on hemodialysis Wednesday, Wednesday, Wednesday. The patient took her hemodialysis schedule short on Wednesday. 3. Dyspnea secondary to #2, improved with supplemental O2. 4. Insulin-dependent diabetes mellitus. Continue sliding scale with patterned blood sugars and home medications. 5. Coronary artery disease with recent stenting back in December. The patient should still be on Brilinta. We will have nurses verify that. It is not on her home medication list. 6. Morbid obesity. 7. Hypertension continue home regimen. 8. Hypothyroidism. 9. Obstructive sleep apnea with home O2. 10. Chronic elevated troponins. The patient is not complaining of any cardiac type chest pain. 11. Further recommendation to follow physician evaluation, laboratory and diagnostic data. Dictated by CALI Chapman for Dale Coker MD cc: MD Dany Meredith MD
[2019-04-02] MEDS ORDERED: CALCIUM GLUCONATE 2 GM in NS 100 ML IV ONE (17:56)
[2019-04-02] MEDS ORDERED: HUMULIN R IV ONE (17:56)
[2019-04-02] MEDS ORDERED: SODIUM BICARBONATE 8.4% IV PUSH ONE (17:56)
[2019-04-02] MEDS ORDERED: ALBUTEROL 0.5% INH CONC FOR HYPERKALEMIA INH ONE (17:56)
[2019-04-02] MEDS ORDERED: D50W SYRINGE IV ONE (17:58)
[2019-04-02] MEDS ORDERED: LOKELMA POWDER PACKET PO ONE (18:00)
[2019-04-02] MEDS ORDERED: NS 2,000 ML MISC PRN (18:07)
[2019-04-02] MEDS: REQUIP PO SCH (21:05)
[2019-04-02] MEDS: HUMALOG SUBQ SCH (21:06)
[2019-04-02] MEDS: NEURONTIN PO SCH (21:06)
[2019-04-02] MEDS: SEROQUEL PO SCH (21:06)
[2019-04-02 22:34] LABS: ALBUMIN 3.3 g/dL (3.5-5.0); CALCIUM 8.5 mg/dL (8.8-10.2); CREATININE 5.3 mg/dL (0.5-0.9); PHOSPHORUS 5.3 mg/dL (2.7-4.5); POTASSIUM 4.8 mmol/L (3.5-5.1)
[2019-04-03] MEDS: BRILINTA PO SCH ×3 (01:46→22:08)
[2019-04-03 05:31] LABS: BASO# 0.02 X1000 (0.0-0.2); BASO% 0.3 % (0.0-0.8); EOS# 0.29 X1000 (0.0-0.7); EOS% 4.5 % (0.0-10.0); HEMATOCRIT 33.3 % (37.0-47.0); HEMOGLOBIN 9.9 g/dL (12.0-16.0); IMM GRAN# 0.02 X1000 (0.0-0.04); IMM GRAN% 0.3 % (0.0-0.5); MCH 28.2 PG (27-31); MCHC 29.7 g/dL (33-37); MCV 94.9 FL (81-99); MONO# 0.38 X1000 (0.11-0.59); MONO% 5.8 % (1.7-9.3); MPV 10.2 FL (7.4-10.4); NEUT% 66.1 % (42.2-75.2); PLT 131 X1000 (130-400); RBC 3.51 XMIL (4.2-5.4); RDW 15.4 % (11.5-14.5); WBC 6.51 X1000 (4.8-10.8)
[2019-04-03] MEDS: RENAGEL PO SCH ×3 (06:31→17:04)
[2019-04-03] MEDS: HUMALOG SUBQ SCH ×4 (06:32→22:07)
[2019-04-03 06:34] LABS: ALB/GLOB RATIO 1.2; ALBUMIN 3.5 g/dL (3.5-5.0); CALCIUM 8.4 mg/dL (8.8-10.2); CREATININE 6.1 mg/dL (0.5-0.9); MAGNESIUM 1.8 mg/dL (1.5-2.7); POTASSIUM 5.3 mmol/L (3.5-5.1); TOTAL BILIRUBIN 0.29 mg/dL (0.20-1.00); TOTAL PROTEIN 6.4 g/dL (6.3-8.3)
--- NOTE | 2019-04-03 07:27 | EKG Report ---
Test Performed on : 04/03/2019 06:35:19 AM Test Reason : rhythm change Blood Pressure : / mmHG Vent. Rate : 116 BPM Atrial Rate : 277 BPM P-R Int : 000 ms QRS Dur : 094 ms QT Int : 352 ms P-R-T Axes : 000 054 -29 degrees QTc Int : 489 ms Atrial fibrillation. with rapid ventricular response. Cannot rule out Anterior infarct , age undetermined Abnormal ECG Confirmed by Justin MARCH, Kalin ([id number]) on 04/04/2019 8:55:21 AM
--- NOTE | 2019-04-03 07:29 | Diag Imaging Result Doc PS360 ---
EXAM: CHEST-PORTABLE INDICATION: dyspnea TECHNIQUE: One view COMPARISON: 04/02/2019 FINDINGS: Lung volumes are very low, even more so than the previous study. Mild pulmonary venous congestion is approximately stable. No new consolidation is identified. Cardiac silhouette is stable. IMPRESSION: Lower lung volumes but grossly stable chest, otherwise. Electronically signed by Aguila Gamez 04/03/2019 7:27 AM
[2019-04-03] MEDS ORDERED: NS 2,000 ML MISC PRN (08:24)
[2019-04-03] MEDS ORDERED: HEPARIN IV PRN (08:24)
[2019-04-03] MEDS ORDERED: TIGHT: 0.2 ML/HR FOR DIALYSIS MISC PRN (08:24)
[2019-04-03] MEDS: ASPIRIN EC PO SCH (13:37)
[2019-04-03] MEDS: CRESTOR PO SCH (13:38)
[2019-04-03] MEDS: PROTONIX PO SCH (13:40)
[2019-04-03] MEDS: NEURONTIN PO SCH ×3 (13:40→17:23)
[2019-04-03] MEDS: LANTUS INSULIN SUBQ SCH (13:40)
[2019-04-03] MEDS: VRAYLAR PO SCH (13:41)
[2019-04-03] MEDS: REQUIP PO SCH ×3 (13:41→17:08)
--- NOTE | 2019-04-03 15:02 | PROGRESS NOTE ---
DATE: 04/03/2019 SUBJECTIVE: The patient is currently on dialysis. She states that she feels weak today. OBJECTIVE: Vital Signs: Temperature 98.1 degrees, blood pressure 165/62, heart rate 83, respirations 20, O2 saturation 99% on 2 L nasal cannula. General: This is a morbidly obese female, lying in bed in no acute distress. Heart: S1, S2 normal. Regular rate and rhythm. Lungs: No wheezing, no rales. Diminished breath sounds bilaterally. Abdomen: Positive bowel sounds. Soft, obese, nontender, nondistended. Extremities: The patient has bilateral below-knee amputations. Neurologic: The patient is alert and oriented x3. LABS AND X-RAYS: White blood cell count 6.5, hemoglobin 9.9, hematocrit 33, platelets 131. Sodium 138, potassium 5.3, chloride 96, CO2 24. BUN 63, creatinine 6.1, glucose 273, phosphorus 6.9. Chest x-ray shows mild pulmonary venous congestion. ASSESSMENT AND PLAN: 1. Severe hyperkalemia secondary to missed dialysis. Improved. 2. Chronic kidney disease stage 5D on hemodialysis. Continue with dialysis as directed by Dr. Fofana. 3. Insulin dependent diabetes mellitus. Continue on Lantus plus sliding scale insulin. 4. Morbid obesity. Aware. 5. Restless leg syndrome. Continue on Requip. 6. Obstructive sleep apnea. Aware. 7. Chronic hypoxemic respiratory failure. The patient is on home oxygen. 8. Coronary artery disease status post coronary stents. Continue on the current cardiac medications. 9. History of bilateral below-knee amputations. Aware. 10. Hypothyroidism. Continue on Synthroid. 11. Disposition: The patient states that she feels weak and does not feel up to being discharged home today. We will likely plan to discharge the patient home tomorrow. Will consult PT. cc: Maira Gupta MD [facility]LAND[facility]veth
[2019-04-03] MEDS: GLUCOTROL XL PO SCH (15:03)
[2019-04-03] MEDS: EFFEXOR XR PO SCH (15:03)
--- NOTE | 2019-04-03 16:38 | PROVIDER PROGRESS NOTE ---
Progress Note Chief complaint: I was short of breath HPI: Mrs. Nelson is a 48-year-old white female with past medical history of insulin-dependent diabetes mellitus, and stage renal disease with hemodialysis on Wednesday, Wednesday, and Wednesday, diabetic neuropathy, bilateral below the knee applications, hypothyroidism, coronary artery disease status post seven stents, and obstructive sleep apnea. She is well known to our service. She was receiving her first hemodialysis treatment Wednesday when she started feeling unwell. She had complaints of general malaise and nausea. She did not stay her for treatment time. She presented to the ED yesterday with complaints of shortness of breath. She denies any chest pain, fever, chills, cough, or diarrhea. Revealed a potassium of 7.5, and a pro BNP greater than 35,000. She was transferred to [facility] and received a two hour hemodialysis treatment yesterday with a 2 L output. Past medical history: insulin-dependent diabetes mellitus, and stage renal disease with him and Dialysis on Wednesday, Wednesday, and Wednesday, diabetic neuropathy, bilateral below the knee amputations, hypothyroidism, obstructive sleep apnea with nighttime oxygen, diabetic neuropathy, depression, chronic pain, coronary artery disease status post seven stents. Past surgical history: bilateral BKA secondary to MRI say, left toe amputation secondary to osteomyelitis, hysterectomy, AB shot placement in the left arm, PCI Social history: patient lives at home. Denies tobacco, alcohol, or illicit drug use. Family history: positive for cardiac disease. Allergies: Baclofen, hydralazine, oxycodone, phenergan, caffeine, Coreg, flexeril, Lipitor, clindamycin, Paxil, trazodone Home medications: albuterol sulfate, aspirin, cariprazine, gabapentin, glipizide ER, Lantus, protonix, Requip, rosuvastatin calcium, Requip, Renvela, Brilinta, Effexor. Review of system: neurological: denies altered mental status or confusion. Admits to dizziness. Eyes: denies blurriness, dryness, or change in visual acuity. ENT: denies tinnitus or change in hearing. Integumentary: denies any erythema, rash, or itching. Respiratory: Admits to shortness of breath and orthopnea. Denies cough. Cardiovascular: denies palpitations or chest pain. G.I.: Denies nausea, vomiting, or abdominal pain. : denies change in flow, color, or amount, odor. Endocrine: Denies excessive thirst and hunger. Musculoskeletal: denies increased weakness or extremity pain. Labs: WBC 6.51, hemoglobin 9.9, hematocrit 33.3, platelet count 131, 3138, po tassium 5.3, chloride 96, carbon dioxide 24, BUN 63, creatinine 6.1. Intake 444, output 2000. Imaging: chest x-ray impression lung volumes are low. Mild pulmonary venous congestion. No new consolidation. Physical exam: temp 98.2, pulse 83, respirations 18, blood pressure 182/72, 02 sat 98% on room air. General: white female laying in bed in no acute distress in dialysis. HEENT: Normocephalic, atraumatic. Pupils equal and reactive. Mucous membranes moist. Trachea midline. Skin: warm, dry. Neck: supple, no JVD. Cardiovascular: S1S2 regular rate and rhythm. No murmur gallop. Respiratory: lungs clear with decreased air flow posteriorly. Abdomen: obese, soft, nontender, nondistended. Positive bowel sounds. : non-inspected Extremities: bilateral BKA Neurological: alert and oriented to person, place, and time. Assessment and Plan: Chronic kidney disease 5D. Patient is receiving her routine hemodialysis today. Seen during dialysis. rg Electrolytes and acid base balance. In target. Hyperkalemia resolved. Blood pressure. Above target. Monitor for now. Hoping hemodialysis will help. Anemia. Low but stable. Does not meet transfusion criteria. Fluid volume. She is currently receiving hemodialysis now with a goal of 3.8 L removal.
[2019-04-03] MEDS: SEROQUEL PO SCH (22:08)
[2019-04-04 05:45] LABS: ALBUMIN 3.3 g/dL (3.5-5.0); CALCIUM 8.5 mg/dL (8.8-10.2); CREATININE 4.6 mg/dL (0.5-0.9); POTASSIUM 4.6 mmol/L (3.5-5.1)
[2019-04-04] MEDS: HUMALOG SUBQ SCH ×2 (06:11→11:10)
[2019-04-04] MEDS: RENAGEL PO SCH ×2 (06:11→11:05)
[2019-04-04 08:07] VITALS: BP 160/72
[2019-04-04] MEDS: LANTUS INSULIN SUBQ SCH (09:43)
[2019-04-04] MEDS: NEURONTIN PO SCH (09:44)
[2019-04-04] MEDS: REQUIP PO SCH (09:44)
[2019-04-04] MEDS: CRESTOR PO SCH (09:45)
[2019-04-04] MEDS: VRAYLAR PO SCH (09:45)
[2019-04-04] MEDS: BRILINTA PO SCH (09:45)
[2019-04-04] MEDS: ASPIRIN EC PO SCH (09:45)
[2019-04-04] MEDS: PROTONIX PO SCH (09:45)
[2019-04-04] MEDS: GLUCOTROL XL PO SCH (09:45)
[2019-04-04] MEDS: EFFEXOR XR PO SCH (09:45)
[2019-04-04] MEDS ORDERED: LOPRESSOR PO SCH (10:30)
--- NOTE | 2019-04-04 18:42 | PROVIDER PROGRESS NOTE ---
Progress Note Subjective: pt sitting up in bed watching TV. Denies any uremic complaints. Objective: Temp. 97.6, pulse 91, respirations 14, blood pressure 160/72, 02 sat 100 2L nasal cannula. General: white female laying in bed in no acute distress in dialysis. HEENT: Normocephalic, atraumatic. Pupils equal and reactive. Mucous membranes moist. Trachea midline. Skin: warm, dry. Neck: supple, no JVD. Cardiovascular: S1S2 regular rate and rhythm. No murmur gallop. Respiratory: lungs clear with decreased air flow posteriorly. Abdomen: obese, soft, nontender, nondistended. Positive bowel sounds. : non-inspected Extremities: bilateral BKA Neurological: alert and oriented to person, place, and time. Labs: sodium 137, potassium 4.6, chloride 97, carbon dioxide 25, BUN 43, creatinine 4.6. intake 882, output 3000. Impression: Chronic kidney disease 5D. Patient received her routine hemodialysis yesterday. She is feeling better and plans to discharge today. We will follow up in output clinic. Electrolytes and acid base balance. In target. Blood pressure. Above target. Monitor for now. Anemia. Low but stable. Does not meet transfusion criteria. Fluid volume. Euvolemic on exam.
--- NOTE | 2019-04-05 11:56 | DISCHARGE SUMMARY ---
ADMISSION DATE: 04/02/2019 DISCHARGE DATE: 04/04/2019 DISCHARGE DISPOSITION: Home. DISCHARGE CONDITION: Hemodynamically stable. She denies any shortness of breath. Her potassium is within acceptable range. DISCHARGE DIAGNOSES: 1. Acute pulmonary edema related to volume overload related to inadequate hemodialysis. 2. Life-threatening hyperkalemia with potassium of 7.5. 3. Essential hypertension. 4. Hyperphosphatemia. OTHER DIAGNOSES: 1. End-stage renal disease, on Wednesday, Wednesday, Wednesday hemodialysis. 2. Insulin-dependent diabetes mellitus type 2. 3. Coronary artery disease with non ST-elevation myocardial infarction, status post stent in 12/2018. 4. Morbid obesity. 5. Bilateral lower extremity osteomyelitis, status post bilateral below-knee amputations. 6. Obstructive sleep apnea, on home oxygen. 7. Diabetic neuropathy. 8. Hypothyroidism. DISCHARGE MEDICATIONS: Quetiapine 25 mg at nighttime, aspirin 81 mg daily, Brilinta 90 mg b.i.d., venlafaxine 75 mg daily, gabapentin 600 mg t.i.d., glipizide extended-release 2.5 mg daily, pantoprazole 40 mg daily, sevelamer 800 mg tablets 4 tablet with meals, ropinirole 3 mg t.i.d., rosuvastatin 10 mg daily, albuterol sulfate 90 mcg inhaled as needed for shortness of breath, cariprazine 3 mg daily, insulin glargine 10 units subcutaneously daily, metoprolol 50 mg b.i.d. PHYSICAL EXAMINATION: Discharge Vital Signs: Temperature 97.6 degrees, pulse 91, respiratory rate 14, blood pressure 160/70, saturating 100% on room air. General: Not in acute distress. HEENT: Oral cavity is moist. Lungs: Air entry bilaterally equal. No wheeze, rhonchi, crackles. Cardiovascular: S1, S2 normal. No murmur or gallop. Regular rate and rhythm. Abdomen: Soft, nontender. No jugular venous distention. Extremities: Bilateral lower extremity below-knee amputation. No edema. Neurologic: She is alert and oriented x3, not in acute distress. SIGNIFICANT LABORATORY DATA DURING HOSPITAL ADMISSION AND DISCHARGE: Hemoglobin of 9.9, platelets of 131,000. She has chronic normocytic anemia. Her pH was 7.34 and pCO2 of 45 on presentation, but PO2 was 123. On presentation, her potassium was 7.5, which after dialysis improved to 4.8. At the time of discharge, her potassium is 4.6. Her current BUN is 43, creatinine 4.6, blood glucose 200, phosphorus of 5. On presentation, 0.114 of troponins. SIGNIFICANT MICROBIOLOGY: None. SIGNIFICANT IMAGING DURING HOSPITAL ADMISSION: Chest x-ray on 04/02/2019 had mild pulmonary edema. Chest x-ray on 04/03/2019 had low lung volumes, but otherwise grossly stable chest. Electrocardiogram on presentation had normal sinus rhythm, low-voltage QRS, cannot rule out anterior infarct. HOSPITAL COURSE SUMMARY: Ms. Nelson is a 48-year-old lady who went to her routine hemodialysis 48 hours prior to current presentation. However, she was not feeling well, and she only received 2 hours out of her scheduled 4 hours of dialysis, and she went home. On the day of presentation, she went to [employer] and she started feeling short of breath, so she called the ambulance, and she was brought to the emergency room. In the emergency room, she was found to have potassium of 7.5, proBNP of more than 35,000, and she was in mild respiratory distress, so she was transferred to [facility], and was admitted for further management. The patient underwent hemodialysis, which improved her shortness of breath and electrolyte abnormality. She did not have any chest pain or significant EKG changes. At the time of discharge, she was resumed on all of her cardiovascular medication considering her recent non ST-elevation myocardial infarction and stent in 12/2018. Her electrolytes were within acceptable range. 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 TIME SPENT: Less than 30 minutes were spent in discharging the patient. All of her questions were satisfactorily answered. cc: MD SAMUEL Acosta
== END 2019-04-04 13:29 | disposition home health service (06) | DRG 640 ==
LOC: P.ED 10:49 → EDIPHOLD 16:40 → SUATTDRO 16:40 → EDIPHOLD 16:53 → 1N 18:18
PROVIDERS: ATTEND Internal Medicine

== ENCOUNTER 2019-05-15 02:06 | Inpatient (IN) ==
[2019-05-15] MEDS ORDERED: ASPIRIN PO ONE ×3 (02:38→02:47)
[2019-05-15 03:01] LABS: BASO# 0.05 X1000 (0.0-0.2); BASO% 0.4 % (0.0-0.8); EOS# 0.53 X1000 (0.0-0.7); EOS% 4.4 % (0.0-10.0); HEMATOCRIT 39.5 % (37.0-47.0); HEMOGLOBIN 11.8 g/dL (12.0-16.0); IMM GRAN# 0.03 X1000 (0.0-0.04); IMM GRAN% 0.3 % (0.0-0.5); LYMPH% 11.7 % (20.5-51.1); MCH 28.6 PG (27-31); MCHC 29.9 g/dL (33-37); MCV 95.6 FL (81-99); MONO# 0.77 X1000 (0.11-0.59); MONO% 6.5 % (1.7-9.3); MPV 10.7 FL (7.4-10.4); NEUT# 9.15 X1000 (1.4-6.5); NEUT% 76.7 % (42.2-75.2); PLT 203 X1000 (130-400); RBC 4.13 XMIL (4.2-5.4); RDW 16.2 % (11.5-14.5); WBC 11.93 X1000 (4.8-10.8)
[2019-05-15] MEDS ORDERED: LASIX IV ONE (03:07)
[2019-05-15] MEDS ORDERED: DUONEB (A & A) INH ONE (03:07)
[2019-05-15 03:16] LABS: ALBUMIN 3.8 g/dL (3.5-5.0); CALCIUM 8.4 mg/dL (8.8-10.2); CREATININE 6.3 mg/dL (0.5-0.9); TOTAL BILIRUBIN 0.29 mg/dL (0.20-1.00); TOTAL PROTEIN 7.5 g/dL (6.3-8.3)
[2019-05-15 03:17] LABS: POTASSIUM 9.6 mmol/L (3.5-5.1)
[2019-05-15] MEDS ORDERED: D50W SYRINGE IV ONE ×2 (03:18→05:20)
[2019-05-15] MEDS ORDERED: ALBUTEROL 0.5% INH CONC FOR HYPERKALEMIA INH ONE (03:18)
[2019-05-15] MEDS ORDERED: CALCIUM GLUCONATE 1 GM in NS 50 ML IV ONE (03:18)
[2019-05-15] MEDS ORDERED: HUMULIN R IV ONE ×2 (03:18→05:20)
[2019-05-15] MEDS ORDERED: KAYEXALATE PO ONE (03:18)
[2019-05-15 03:27] LABS: INR 0.97
[2019-05-15] MEDS ORDERED: ZOFRAN IV ONE (03:37)
--- NOTE | 2019-05-15 04:20 | PROVIDER DOCUMENTATION ---
HPI-General Adult - General Chief Complaint: Shortness of Breath Stated Complaint: sob Time Seen by Provider: 05/15/19 02:50 Source: patient, EMS Allergies/Adverse Reactions: Patient Allergies Allergy/AdvReac Type Severity Reaction Status Date / Time baclofen Allergy DIFFICULTY Verified 04/02/19 12:56 AWAKENING hydralazine Allergy HALLUCINATI Verified 04/02/19 12:56 ONS oxycodone [From Tylox] Allergy HIVES Verified 04/02/19 12:56 promethazine [From Phenergan] Allergy DIFFICULTY Verified 04/02/19 12:56 AWAKENING caffeine AdvReac Intermediate RAPID Verified 04/02/19 12:56 HEART RATE carvedilol [From Coreg] AdvReac Intermediate RAPID Verified 04/02/19 12:56 HEART RATE cyclobenzaprine HCl * AdvReac Intermediate DIARRHEA Verified 04/02/19 12:56 [From Flexeril] sodium AdvReac Intermediate EXTREME Verified 04/02/19 12:56 SWELLING atorvastatin calcium * AdvReac RASH Verified 04/02/19 12:56 [From Lipitor] clindamycin AdvReac DIARRHEA Verified 04/02/19 12:56 paroxetine [From Paxil] AdvReac Unknown Verified 04/02/19 12:56 trazodone AdvReac HALLUCINATI Verified 04/02/19 12:56 ONS Home Medications: Home Medication List Medication Instructions Recorded Confirmed Last Taken Type Gabapentin 600 mg PO TID 04/05/17 05/15/19 04/02/19 08:30 History Pantoprazole [Protonix] 40 mg PO DAILY 07/26/17 05/15/19 04/02/19 08:30 History Ropinirole HCl [Requip] 3 mg PO TID 06/28/18 05/15/19 04/02/19 08:30 History Aspirin [Aspir-Low] 81 mg PO DAILY 07/27/18 05/15/19 04/02/19 08:30 History Venlafaxine [Effexor] 75 mg PO DAILY 07/27/18 05/15/19 04/02/19 08:30 History Albuterol Sulfate [Ventolin Hfa] 90 mcg INH PRN PRN 10/19/18 05/15/19 04/02/19 09:15 History Insulin Glargine,Hum.rec.anlog 10 unit SQ DAILY #5 insuln.pen 12/15/18 05/15/19 04/01/19 21:00 Rx [Lantus Solostar] Glipizide E.r. [Glucotrol Xl] 2.5 mg PO DAILY 01/22/19 05/15/19 04/02/19 08:30 History Quetiapine Fumarate 25 mg PO QHS 01/22/19 05/15/19 04/01/19 21:00 History Rosuvastatin Calcium 10 mg PO DAILY 01/22/19 05/15/19 04/02/19 08:30 History Sevelamer Carbonate [Renvela] 4 tab PO AC 01/22/19 05/15/19 04/01/19 21:00 History Cariprazine HCl [Vraylar] 3 mg PO DAILY 04/02/19 05/15/19 04/02/19 08:30 History Ticagrelor [Brilinta] 90 mg PO BID 04/02/19 05/15/19 04/02/19 History 899 Metoprolol [Lopressor] 50 mg PO BID tab 04/04/19 05/15/19 Unknown Rx - History of Present Illness -Gen Adult Nature of Presenting Problems: A 48 y/o female presents with c/o SOB and feeling heavy in her both arms. The SOB got worse since past 2-3 hours. Has mild productive cough. Denies any CP or fever or chills or nausea or vomiting or abd pain. Denies any fever or chills. Has had dialysis yesterday. The EMS provided breathing treatment on the way. Pt uses O2 at night at home. Review of Systems - Adult - REVIEW OF SYSTEMS - ADULT Constitutional: denies: no symptoms reported Eyes: denies: no symptoms reported Ears, Nose, Mouth & Throat: denies: no symptoms reported Cardiovascular: reports: see HPI Respiratory: reports: see HPI Gastrointestinal: reports: see HPI Genitourinary: denies: no symptoms reported Musculoskeletal: denies: no symptoms reported Integumentary: denies: no symptoms reported Neurological: denies: no symptoms reported Psychiatric: denies: no symptoms reported Endocrine: denies: no symptoms reported Hematologic/Lymphatic: denies: no symptoms reported Allergic/Immunologic: denies: no symptoms reported Past History - Adult - PAST MEDICAL HISTORY-ADULT Review of Records: reports: Old Records Reviewed, Nursing Assessment Review, Medications Reviewed, Social history reviewed & non-contributory. Major Childhood Illnesses: reports: denies history Cardiovascular: reports: HTN, hyperlipidemia Respiratory: reports: sleep apnea, other (sleep apnea) Gastrointestinal: reports: denies history Obstetrical/Gynecological: reports: denies history Genitourinary: reports: dialysis, kidney disease Musculoskeletal: reports: chronic pain (low back) Neurological: reports: other (diabetic neuropathy) Psychiatric: reports: depression Endocrine/Immune: reports: Diabetes, thyroid disorder (hypothyroid) Other Conditions: reports: denies history - PRIOR SURGERIES/PROCEDURES Surgical/Procedure History: reports: hysterectomy, orthopedic (extremity) (BKA), other (toe nail removal; toe amputation) - PRIOR HOSPITALIZATIONS Prior Hospitalizations: reports: for other non-related - IMMUNIZATION STATUS Childhood Immunizations: See Nurse Assessment Flu Vaccine: See Nurse Assessment - FAMILY HISTORY Family History: reviewed, not pertinent Physical Exam-General - PHYSICAL EXAM-ADULT Initial Vital Signs Reviewed: Yes - CONSTITUTIONAL General Appearance: alert, severe distress, obese, anxious - EYES Eyes: PERRL/EOMI - HEAD, EARS, NOSE, MOUTH & THROAT HENMT: pharynx normal, other (dry mucous membrane.) - NECK Neck: supple. negative: lymphadenopathy - RESPIRATORY Respiratory: respiratory distress, decreased breath sounds, rales, wheezing - CARDIOVASCULAR Cardiovascular: bradycardia, irregularly irregular - GASTROINTESTINAL (ABDOMEN) Abdominal Exam: non tender, soft - MUSCULOSKELETAL Extremity: other (b/l BKA's) - SKIN Integumentary: normal color, warm/dry - NEUROLOGIC Neurologic: grossly normal - PSYCHIATRIC Psych/Mental Status: normal mood/affect, oriented x 3, anxious Progress - PLAN OF CARE/RESULTS Progress/Plan/Lab Results: Vital Signs - 8 hr 05/15/19 02:12 05/15/19 02:16 05/15/19 02:53 Temperature 97.5 F L Pulse Rate 73 42 L Respiratory Rate 20 20 Blood Pressure 108/46 108/46 158/60 O2 Sat by Pulse Oximetry 98 99 05/15/19 03:32 Temperature Pulse Rate 51 L Respiratory Rate 24 Blood Pressure O2 Sat by Pulse Oximetry Laboratory Results - last 24 hr 05/15/19 05/15/19 05/15/19 02:34 02:34 02:34 WBC 11.93 H RBC 4.13 L Hgb 11.8 L Hct 39.5 MCV 95.6 MCH 28.6 MCHC 29.9 L RDW Std Deviation 16.2 H Plt Count 203 MPV 10.7 H Immature Gran % (Auto) 0.3 Neut % (Auto) 76.7 H Lymph % (Auto) 11.7 L [place] % (Auto) 6.5 Eos % (Auto) 4.4 Baso % (Auto) 0.4 Immature Gran # (Auto) 0.03 Neut # (Auto) 9.15 H Lymph # (Auto) 1.40 [place] # (Auto) 0.77 H Eos # (Auto) 0.53 Baso # (Auto) 0.05 PT INR PTT (Actin FS) Sodium 134 L Potassium 9.6 H* Chloride 93 L Carbon Dioxide 24 L Anion Gap 17 BUN 67 H Creatinine 6.3 H Estimated GFR/1.73 m2 7 BUN/Creatinine Ratio 11 Glucose 276 H Calculated Osmolality 298 Calcium 8.4 L Magnesium Total Bilirubin 0.29 AST 19 ALT 15 Alkaline Phosphatase 150 H Creatine Kinase 98 Troponin T High Sens [id number] Pept 06699 H Total Protein 7.5 Albumin 3.8 Globulin 3.7 Albumin/Globulin Ratio 1.0 05/15/19 05/15/19 05/15/19 02:34 02:34 02:34 WBC RBC Hgb Hct MCV MCH MCHC RDW Std Deviation Plt Count MPV Immature Gran % (Auto) Neut % (Auto) Lymph % (Auto) [place] % (Auto) Eos % (Auto) Baso % (Auto) Immature Gran # (Auto) Neut # (Auto) Lymph # (Auto) [place] # (Auto) Eos # (Auto) Baso # (Auto) PT 13.0 INR 0.97 PTT (Actin FS) 29.0 Sodium Potassium Chloride Carbon Dioxide Anion Gap BUN Creatinine Estimated GFR/1.73 m2 BUN/Creatinine Ratio Glucose Calculated Osmolality Calcium Magnesium 2.2 Total Bilirubin AST ALT Alkaline Phosphatase Creatine Kinase Troponin T High Sens 101 H* [id number] Pept Total Protein Albumin Globulin Albumin/Globulin Ratio Orders Category Date Time Status Cardiac Monitoring DIRECTED Care 05/15/19 02:39 Active Oxygen Therapy- ED Nursing DIRECTED Care 05/15/19 02:39 Active Saline Loc NOW Care 05/15/19 02:39 Active CHEST-1 VIEW [RAD] Stat Exams 05/15/19 02:50 Taken CBC WITH ELECTRONIC DIFF [HEME] Stat Lab 05/15/19 02:34 Completed CK PROFILE [SP CHEM] Stat Lab 05/15/19 02:34 Completed COMPREHENSIVE METABOLIC PANEL [CHEM] Stat Lab 05/15/19 02:34 Completed MAGNESIUM [CHEM] Stat Lab 05/15/19 02:34 Completed PRO B-NATRIURETIC PEPTIDE Stat Lab 05/15/19 02:34 Completed PROTIME WITH INR [COAG] Stat Lab 05/15/19 02:34 Completed PTT [COAG] Stat Lab 05/15/19 02:34 Completed TROPONIN T HIGH SENSITIVITY Stat Lab 05/15/19 02:34 Completed Albuterol 0.5% INH Conc [Albuterol 0.5% INH Conc For Med 05/15/19 03:18 Discontinued Hyperkalemia] 25 mg INH NOW ONE Albuterol 2.5MG/Ipratrop 0.5MG [Duoneb (A & A)] Med 05/15/19 03:07 Discontinued 3 ml INH NOW ONE Aspirin Med 05/15/19 02:42 Discontinued 244 mg PO NOW ONE Aspirin Med 05/15/19 02:47 Discontinued 81 mg PO NOW ONE Calcium Gluconate 1 gm Med 05/15/19 03:18 Discontinued 0.9% Sodium Chloride Inj [Ns] 50 ml IV NOW Dextrose 50% Syringe [D50w Syringe] Med 05/15/19 03:18 Discontinued 50 ml IV NOW ONE Furosemide [Lasix] Med 05/15/19 03:07 Discontinued 40 mg IV NOW ONE Insulin Human Regular [Humulin R] Med 05/15/19 03:18 Discontinued 12 unit IV NOW ONE Ondansetron [Zofran] Med 05/15/19 03:37 Discontinued 4 mg IV NOW ONE Sodium Polystyrene [Kayexalate] Med 05/15/19 03:18 Discontinued 30 gm PO NOW ONE Aerosol Treatments Routine Oth 05/15/19 03:07 Active Aerosol Treatments Routine Oth 05/15/19 03:21 Active Aerosol Treatments Stat Oth 05/15/19 03:07 Active Aerosol Treatments Stat Oth 05/15/19 03:21 Active CP/SOB/Palp >45 yrs of Age Stat Oth 05/15/19 02:28 Ordered EKG [EKG] Stat Ther 05/15/19 02:19 Ordered Result Diagrams: 05/15/19 02:34 05/15/19 05:18 - REASSESSMENT Reassessment #1 Time Reassessed: 02:45 Status: improving (labs reviewed. will correct hyperkalemia.) Departure - Departure Date of Disposition Decision: 05/15/19 Time of Disposition Decision: 04:45 DIAGNOSIS: Shortness of breath, Hyperkalemia, Chronic kidney disease, stage 4 (severe), Pulmonary edema, Arrhythmia Disposition: ADMITTED INPATIENT 09 Certified Medical Emergency: Emergent Condition: Stable - Critical Care Note This patient required my direct & personal management of CC.: Yes Total Time (mins): 40 Critical Care Statement: This patient required my direct personal management to treat or rule out processes, the absence of which, could potentiallly result in sudden, clinically significant life or limb threatening deterioration. Attestation - Physician/ DELBERT Attestation Patient care was provided by Advanced Practice Provider:: No The physician spent face to face time with patient:: Yes Advanced Practice Provider documentation review:: Supervising physician onsite and consulted in the evaluation and care of this patient. The physician did have a face to face encounter with the patient.
[2019-05-15] MEDS ORDERED: VENTOLIN HFA INH PRN (04:51)
[2019-05-15] MEDS: LASIX IV ONE ×2 (05:25→05:59)
[2019-05-15 05:43] LABS: BLOOD TYPE ARTERIAL; SAMPLE BLOOD
[2019-05-15 05:44] LABS: ALLEN TEST YES; BE -4.3 mmoll (-3.0-3.0); HCO3-(ACT) 21.6 mmoll (20.0-26.0); METHB 0.4 % (0.0-1.5); MODALITY CANNULA; O2(CT) 14.8 mL/dL (15.0-23.0); O2HB 95.9 % (95.0-99.0); PO2(98.6) 97 mmHg (60-100); SAO2 97.3 % (95.0-100.0); THB 10.9 g/dL (11.5-17.4); pH(98.6) 7.25 (7.35-7.45)
[2019-05-15 05:46] LABS: PCO2(98.6) 53 mmHg (35-45)
--- NOTE | 2019-05-15 05:47 | EKG Report ---
Test Performed on : 05/15/2019 02:25:39 AM Test Reason : shortness of breath Blood Pressure : / mmHG Vent. Rate : 047 BPM Atrial Rate : 047 BPM P-R Int : 194 ms QRS Dur : 090 ms QT Int : 508 ms P-R-T Axes : 009 133 034 degrees QTc Int : 449 ms Sinus bradycardia. with marked sinus arrhythmia. Right axis deviation Low voltage QRS Cannot rule out Anterior infarct (cited on or before 06-FEB-2019) Abnormal ECG When compared with ECG of 03-APR-2019 06:35, Significant changes have occurred Unconfirmed Result
--- NOTE | 2019-05-15 05:48 | EKG Report ---
Test Performed on : 05/15/2019 04:46:45 AM Test Reason : Repeat EKG, Hyperkalemia Blood Pressure : / mmHG Vent. Rate : 089 BPM Atrial Rate : 089 BPM P-R Int : 148 ms QRS Dur : 088 ms QT Int : 388 ms P-R-T Axes : 035 -08 017 degrees QTc Int : 472 ms Normal sinus rhythm. Possible Left atrial enlargement Low voltage QRS Possible Anterolateral infarct (cited on or before 06-FEB-2019) Abnormal ECG When compared with ECG of 15-MAY-2019 02:25, (Unconfirmed) Vent. rate has increased BY 42 BPM QRS axis shifted left Unconfirmed Result
[2019-05-15 06:01] LABS: ALBUMIN 3.2 g/dL (3.5-5.0); CALCIUM 8.6 mg/dL (8.8-10.2); CREATININE 6.4 mg/dL (0.5-0.9)
[2019-05-15 06:03] LABS: POTASSIUM 7.1 mmol/L (3.5-5.1)
--- NOTE | 2019-05-15 06:31 | HISTORY AND PHYSICAL ---
ADDENDUM: Patient of Dr. Fofana. This is an addendum to anticipated H P to be dictated. The patient came in complaining of shortness of breath for the last couple of days to try to relieve dyspnea with home O2 and breathing treatments without any success. She came into the ER to be evaluated, and found to be in pulmonary edema. Clinically, she has evidence by decreased air entry in the bases and bilateral crackles in both lungs. Her lab work showed a potassium of 9.6, BUN 67, and creatinine of 6.3. She is scheduled to have dialysis today. She has been given multiple doses of insulin with D50, Kayexalate, bicarb, Lasix, and albuterol. She is currently having another set of potassium done. The EKG does not show any wide complex rhythm. Normal sinus rhythm with normal QRS complex with borderline first-degree AV block noted. The patient is a little drowsy, but would arouse when touched, and unable to give any meaningful history as a result of this. If potassium is still high, we will give her another round of D50 insulin and megadose albuterol. Dr. Fofana will be notified so the patient can undergo hemodialysis as soon as possible. She is also given prophylactically calcium gluconate. Patient is pretty much anuric and ultrafiltration will also be needed during dialysis to rid her of pulmonary edema. cc: Randa Coreas MD
[2019-05-15] MEDS ORDERED: HUMULIN R SUBQ SCH (07:00)
--- NOTE | 2019-05-15 07:00 | Diag Imaging Result Doc PS360 ---
EXAM: CHEST-1 VIEW 05/15/2019 HISTORY: SOB TECHNIQUE: AP portable at 0300 COMMENT: The inspiration is markedly suboptimal. The left ventricle is slightly enlarged. Compared to the previous examination of 04/03/2019 there has been no significant change. IMPRESSION: Stable chest. Electronically signed by Wilson Carroll 05/15/2019 6:57 AM
[2019-05-15] MEDS ORDERED: TIGHT: 0.2 ML/HR FOR DIALYSIS MISC PRN (07:27)
[2019-05-15] MEDS ORDERED: HEPARIN IV PRN (07:27)
[2019-05-15] MEDS ORDERED: NS 2,000 ML MISC PRN (07:27)
[2019-05-15] MEDS: PRILOSEC PO SCH (07:34)
--- NOTE | 2019-05-15 08:39 | HISTORY AND PHYSICAL ---
PROFESSIONAL NURSE: Dr. Fofana. DATE AND TIME: 05/15/2019 at 0400. CHIEF COMPLAINT: Shortness of breath. HISTORY OF PRESENT ILLNESS: Ms. Nelson is a 48-year-old female who is well known to our service. She does have a history of end-stage renal disease on hemodialysis on Mondays, Wednesdays, and Fridays, insulin-dependent diabetes mellitus, diabetic neuropathy, hypothyroidism, obstructive sleep apnea, depression, chronic pain, coronary artery disease, status post 7 stents, and bilateral etnmq-nfo-blwl amputations. The patient states that she began having shortness of breath yesterday and it progressively got worse. She does have oxygen per nasal cannula at home. Using this, as well as her inhaler, and also increasing her oxygen and her inhaler use, her symptoms did not improve. She did also report some heaviness in her left arm as well. She did call an ambulance and have them bring her to the ER. Initial vital signs upon arrival to the ER was temperature 97.5 degrees, heart rate was initially documented at 73, though just 30 minutes after that she was documented to have bradycardic heart rate that was in the 40s. Respirations 20, blood pressure is 108/46, oxygen saturation is 98% per nasal cannula at 2 L. She was noted to have upon initial arrival dyspnea with decreased breath sounds, rales and wheezing. The patient reported that she had not missed any of her dialysis appointments. She also had had her entire treatment. They had not cut any treatments short recently. She denies being sick recently or not feeling well or being around anyone who is sick. She did report that they added on a new diabetic medication for her, though other than this they had not made any changes to her medications or added anything else new on. The patient does report that she has sleep apnea and is supposed to wear CPAP, though it is broken at this time and she has not been wearing it. Other than her shortness of breath and the left arm heaviness, she denies any other symptoms. She denies any headache, dizziness, chest pain, cough, abdominal pain. She did have a little bit of nausea after arriving to the ER, though with Zofran this did improve. She denies any vomiting or diarrhea. Her last BM was yesterday. She denies any hematochezia or melena. The patient reports that she does not produce any urine. She has not had any worsening pain, numbness, tingling, or swelling in her extremities. She denies any increased abdominal swelling either. She denies any fever, body aches, or chills. In the ER, she was found to have a critical potassium level of 9.6. BUN 67, creatinine 6.3, calcium was 8.4, and magnesium was 2.2. She was also having EKG changes. She was noted on EKG to have a sinus bradycardia with marked sinus arrhythmia. It also does appear that she possibly has a first-degree AV block noted. The TN interval is just slightly prolonged. In the ER, they did immediately treat her with a hyperkalemic albuterol nebulizer treatment, calcium gluconate 1 gram IV, D-50 at 1 amp IV, and 12 units of regular insulin IV. After administration of this, the patient's heart rate did improve. She has maintained a heart rate in the 80s to 90s at this time. Repeat EKG did show normal sinus rhythm with possible left atrial enlargement at a rate of 89 with a QTc of 472. The patient reports that she does feel better and that her shortness of breath has improved as well. She did seem a little drowsy upon my examination, though she was arousable by verbal calling of her name and once awoken was alert and oriented to person, place, time, and situation and was able to answer all my questions appropriately, though when I would stop talking to her, she would drift back off to sleep. Fingerstick blood sugar was recheck and was within normal limits. We did do arterial blood gases, which did show her CO2 was slightly elevated. We will continue to monitor closely. Ultimately, the patient's respiratory symptoms will be further improved with dialysis. After treating her potassium initially, we did recheck it at approximately an hour after treatment medications were given. Though her potassium had improved, it still was elevated at 7.1. Given this, we did re-treat her potassium with 8 units of IV insulin and an amp of D-50. We did consider giving her IV Lasix, though after speaking with the patient she states that she does not make any urine at all. Unfortunately, this would not be helpful given this. We did have the patient's nurse call and notify Dr. Fofana of the patient as well. She will be placed inpatient admission for further treatment and evaluation of her hyperkalemia with plans to have dialysis this morning. REVIEW OF SYSTEMS: A 14-point review of systems was conducted with the patient and all were negative except for pertinent positives mentioned in the HPI. PAST MEDICAL HISTORY: 1. Insulin-dependent diabetes mellitus. 2. End-stage renal disease on hemodialysis on Mondays, Wednesdays, and Fridays. 3. Diabetic neuropathy. 4. Bilateral bxnon-jng-yeqz amputations. 5. Hypothyroidism. 6. Obstructive sleep apnea on oxygen per nasal cannula 2 liters. At this time she is supposed to wear CPAP, though states her machine is broken. 7. Diabetic neuropathy. 8. Depression. 9. Chronic pain. 10. Coronary artery disease, status post placement of 7 stents. PAST SURGICAL HISTORY: 1. Left toe amputation secondary to osteomyelitis. 2. 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 3. Hysterectomy. 4. AV shunt placement in the left arm. SOCIAL HISTORY: The patient has no known history of tobacco, alcohol or illicit drug use. FAMILY HISTORY: Positive for numerous, including her mother, father, and siblings, having significant cardiac history. She states that her siblings, as well as her mother and father, have all had heart disease, heart attacks, and high blood pressure. ALLERGIES: The patient has allergies to baclofen, hydralazine, Tylox, Phenergan, caffeine, Coreg, Flexeril, sodium, Lipitor, clindamycin, Paxil, and trazodone. HOME MEDICATIONS: 1. Ventolin HFA inhaler 2 puffs inhaled every 4 to 6 hours p.r.n. for wheezing or shortness of breath. 2. Aspirin 81 mg p.o. daily. 3. Vraylar 3 mg p.o. daily. 4. Gabapentin 600 mg p.o. t.i.d. 5. Glucotrol-XL 2.5 mg p.o. daily. 6. Lantus SoloSTAR 10 units subcutaneously daily. 7. Lopressor 50 mg p.o. b.i.d. 8. Protonix 40 mg p.o. daily. 9. Seroquel 25 mg p.o. every night at bedtime. 10. Requip 3 mg p.o. t.i.d. 11. Rosuvastatin 10 mg p.o. daily. 12. Renvela 800 mg tablet 4 tablets p.o. t.i.d. before meals. 13. Brilinta 90 mg p.o. b.i.d. 14. Effexor 75 mg p.o. daily. DIAGNOSTIC DATA: White blood cell count is 11,930, hemoglobin 11.8, hematocrit 39.5, platelet count is 203,000. PT 13, INR 0.97, PTT is 29. Sodium 134, potassium 9.6 with a recheck of 7.1, chloride 93, serum bicarbonate 24, BUN 67, creatinine 6.3 with a GFR 7, glucose 276, calcium 8.4, magnesium 2.2. Liver function tests within normal limits except for alkaline phosphatase is elevated at 150. CK 98, Troponin T high sensitivity is 101, though repeat troponin has improved. It is trending down; it was 91. ProBNP is 31,579. Arterial blood gases were obtained on nasal cannula with FiO2 of 28%, pH 7.25, pCO2 was 53, PO2 of 97, HCO3 is 21.6 with a base excess of - 4.3, and saturation O2 saturation of 97.3. PHYSICAL EXAMINATION: VITAL SIGNS: Temperature 97.5 degrees, heart rate 89, respirations 18, blood pressure is 129/65, oxygen saturation is 100% on nasal cannula at 2 L. GENERAL: Ms. Nelson is a pleasant 48-year-old female. She was resting in the ER stretcher with her eyes closed upon my initial arrival, though was easily arousable with verbal stimulation by calling her name. Once awakened, she was alert and oriented to person, place, time, and situation. HEENT: Head is atraumatic, normocephalic. Pupils are equal, round, reactive to light, were 3 mm bilaterally and brisk. Oral mucosa is moist. Oropharynx is clear. NECK: Supple. Trachea midline. CARDIOVASCULAR: Patient has S1-S2 present. No murmurs, gallops, rubs appreciated with a regular rate and rhythm. PULMONARY: Patient has symmetrical chest expansion bilaterally. Lung sounds in bilateral hernandez were clear to auscultation. She was slightly diminished in bilateral bases. ABDOMEN: Soft. It does not appear to be distended, though she does have a protuberant abdomen noted. She was nontender upon palpation. Bowel sounds are present in all 4 quadrants. EXTREMITIES: The patient does have bilateral kzoos-tia-uccd amputations noted. Though does not appear to be any swelling or edema or cyanosis noted in extremities. Radial pulses were 2+ bilaterally. INTEGUMENTARY: The patient's skin is pink, warm, and dry. NEUROLOGICAL: Patient is alert and oriented to person, place, time, and situation. She is able move all extremities. There are no focal neurological deficits noted. ASSESSMENT AND PLAN: 1. Hyperkalemia. For this we have given the patient an initial round of hyperkalemic albuterol nebulizer treatment, 12 units of regular insulin intravenously, 1 amp of D-50 intravenously, 1 gram of calcium gluconate intravenously, and Kayexalate 30 mg by mouth. This was given in the ER initially. We did do a repeat 1 hour after medications were given, and potassium had improved, though was still elevated at 7.1. We did go ahead and re-treat her with 8 units of regular insulin intravenously and an amp of D-50. The patient reports that she is feeling better. Her EKG changes and bradycardia have improved since she has received treatment as well. She is going to be placed in the intensive care unit for close monitoring. She will be on continuous cardiac telemetry and pulse oximetry with vital signs per intensive care unit protocol. Dr. Fofana was notified of the patient as well, and she will be going to dialysis this morning. 2. End-stage renal disease on hemodialysis on Mondays, Wednesdays, and Fridays. We have placed a consult with Dr. Fofana. We will await his evaluation and further recommendations for management. We will also continue treatment as mentioned above in number 1. 3. Dyspnea and pulmonary edema. This is secondary to her end-stage renal disease. Though the patient states since being given breathing treatments, supplemental oxygen, she is feeling better at this time and her shortness of breath has improved. She was a little drowsy upon my examination. I did do an arterial blood gas. Her CO2 was a little elevated. The patient is resting with her eyes closed. She states that she was short of breath for a long time and was very tired. This is why she is drowsy. Her CO2 level could be contributing to this plus she does take home medications that could effect her neurologically. We will continue to monitor this closely. We will order neurological checks, though ultimately I think that her dyspnea will improve with dialysis given that she does have some pulmonary edema. 4. Diabetes mellitus. We have placed the patient on sliding scale regular insulin with pattern fingerstick blood sugars. She will be on a diabetic diet. 5. History of coronary artery disease with recent stent placement in December 2018. The patient did receive an aspirin upon arrival to the emergency room, though we will continue her regular 81 mg aspirin by mouth tomorrow morning, and we will continue her Brilinta. 6. The patient does have a history of hypertension. It looks as though she takes metoprolol, though given her bradycardia with hyperkalemia upon arrival, we will hold this at this time. Her blood pressure was actually a little on the low side of normal upon arrival. It is currently still within normal limits, with the last reading being 106/60, with a MAP of 74. 7. History of obstructive sleep apnea. She does wear home oxygen for this at night, from what I understand nasal cannula at 2 liters. The patient reports that she is supposed to wear CPAP, though her machine is broken at this time. 8. History of depression. We will continue her Vraylar and Seroquel. 9. Elevated troponins. The patient does have chronically elevated troponins. The troponin T high sensitivity upon arrival was elevated at 101, though when looking back at her regular troponin T, these were actually pretty much at her baseline. Upon recheck in the ER, her troponin T high sensitivity is trending down though. She has not complained of any chest pain at all. She only reported some left arm heaviness, which has resolved. Her EKG changes that were previously present upon arrival have improved, though she is not having any marked ST elevation or depression. We will continue to monitor this closely. She will be placed in intensive care unit for close monitoring. We will do strict intake and output, daily weights, with vital signs per intensive care unit protocol. She will be on a diabetic and heart healthy diet. Further orders and recommendations pending hospital course, diagnostic studies, and physician evaluation. Dictated by CALI Zhou for Randa Coreas MD cc: Randa Coreas MD [facility]
[2019-05-15] MEDS ORDERED: ZOFRAN IV PRN (09:30)
[2019-05-15] MEDS: HUMULIN R SUBQ SCH ×3 (14:28→20:01)
[2019-05-15] MEDS: BRILINTA PO SCH ×2 (14:28→20:01)
[2019-05-15] MEDS: TAMIFLU PO SCH (14:31)
[2019-05-15] MEDS: RENAGEL PO SCH ×2 (14:31→16:18)
--- NOTE | 2019-05-15 15:12 | PROVIDER PROGRESS NOTE ---
Progress Note Chief complaint: I couldnt breath starting Wednesday and I felt like I couldnt move my arms. HPI: Ms. Nelson is a 48-year-old obese white female well known to our service as she is an end stage renal disease patient with hemodialysis on MW that we follow in the outpatient setting. Her past medical history is also significant for insulin-dependent diabetes mellitus, coronary artery disease, and obstructive sleep apnea. She began having shortness of breath Wednesday morning that got progressively worse throughout the day. She voices that her family that she lives with has the flu and upper respiratory infections right now. Last night she tried to sleep with 2 to 3 pillows propping her up. Her shortness of breath woke her up at 1 AM. She is suppose to wear a CPAP machine at night for her ASHLEY but claims it is broken right now. She associated left arm heaviness at this time. She denies chest pain, nausea and vomiting, dizziness, cough, or headaches with this. She tried to increase her home oxygen from 2 to 3 L per nasal cannula. When her shortness of breath did not resolve she decided to call EMS for transport to the emergency department. Upon arrival at the ED, its documented that she had dyspnea with decreased breath sounds, rakes, and wheezing. Her 02 sat on 2L NC was 98%. Past medical history: end stage renal disease with hemodialysis on Mondays, Wednesdays, and Fridays, insulin-dependent diabetes mellitus, diabetic neuropathy, bilateral below the knee amputation, hypothyroidism, obstructive sleep apnea On home oxygen, diabetic neuropathy, depression, chronic pain, coronary artery disease. Past surgical history: A lot of below the knee amputation secondary the MR kelley, left toe amputation secondary to ask him the lightest, hysterectomy, AB shot placement in the left arm, coronary artery stents x 7. Social history: patient lives with family at home. She denies tobacco, alcohol, or illicit drug use. Family history: mother positive for coronary artery disease, myocardial infarction, hypertension. Father positive for myocardial infarction, hypertension, hyperlipidemia. Allergies: Baclofen, hydralazine, oxycodone, Phenergan, caffeine, Coreg, Flexeril, Lipitor, clindamycin, Paxil, trazodone. Home medications: albuterol sulfate, aspirin,cariprazine hcl, Gabapentin, glipizide, Lantus, metoprolol, pantoprazole, quetiapine fumarate, ropinirole hcl, rosuvastatin calcium,sevelamer carbonate, ticagrelor, Effexor Review of systems: 14 point review of system completed. All positives mentioned in the above HPI. Physical exam: temperature 98.0, pulse 121, respirations 16, blood pressure 112/57, O2 sat 100% on 2 L nasal cannula. General: obese white female lying in bed receiving hemodialysis in no distress. HEENT: a traumatic, Pura cephalic. Pupils equal and reactive. Mucous membranes moist. Skin: warm and dry Neck: supple, 6 cm JVD observed, trachea midline. Cardiovascular: S1S2, regular rate and rhythm. No murmur gallop noted. Respiratory: lungs clear with equal entry anteriorly Abdomen: obese, soft, nontender and nondistended. Bowel sounds active. No organomegaly noted. : not inspected Extremities: bilateral above the knee amputation. No clubbing, cyanosis, or edema to BUE. Neurological: alert and oriented to person, place, and time. Labs: WBC 11.93, hemoglobin 11.8, not a crate 39.5, platelet count to 103, sodium 136, potassium 7.1, chloride 97, carbon dioxide 21, BUN 69, creatinine 6.4 ABG: PCO2 53, PO297, HCO3 21.6, oxyhemoglobin 95.9, lactate 3.1. Imaging: stable chest. Assessment and Plan: Chronic kidney disease stage 5D. Patient is currently receiving her routine hemodialysis treatment with an attempt for a 4 L ultrafiltration. Her main complaint was shortness of breath and malaise. We will swab her for the flu and start her on tamiflu considering she says her family members she lives with have it right now. Blood pressure. Stable. Fluid volume. Euvolemic on exam, chest X-ray clear. Anemia. Stable. Hyperkalemia. Corrected with hemodialysis. Acid base balance. Corrected with hemodialysis. Nutrition. Not seen by Brigido
[2019-05-15] MEDS: REQUIP PO SCH ×2 (16:23→17:52)
--- NOTE | 2019-05-15 17:27 | PROGRESS NOTE ---
DATE: 05/15/2019 SUBJECTIVE: Ms. Nelson was admitted on 05/15/2019 or this morning. She came in, looked like it was volume overload, has been short of breath for several days. Trying to relieve the dyspnea with home O2 and breathing treatments unsuccessfully. BUN was 67, creatinine 6.3, potassium is 9.6, and she is scheduled to have dialysis today. So she went for dialysis this morning. She reports she is breathing better. I saw her in the afternoon. OBJECTIVE: Vital signs: Temp 98.2 degrees, pulse 90, respirations 16, blood pressure 154/74. HEENT: Pupils are equal and round. Lungs: Clear in all lung hernandez. Cardiovascular: Regular rhythm and rate without murmur or S3. Urine output was 3000 mL. ASSESSMENT AND PLAN: 1. End-stage renal disease, on hemodialysis. Appears to have volume overload. She gets dialysis Mondays, Wednesdays, and Fridays. Probably we will dialyze her several days in a row. She came in with hyperkalemia. On initial visit her potassium was 9.6. It came down to 7.1 and then had dialysis following that, so check her electrolytes again in the morning. 2. Diabetes mellitus type 2. Continue to follow sugars. 3. History of coronary artery disease with recent stent placement in December. She is on aspirin 81 mg a day. Received 1 when she got to the emergency room. 4. History of hypertension. 5. History of obstructive sleep apnea. 6. History of peripheral vascular disease. She has bilateral ucivr-fzp-xmrr amputation, secondary methicillin-resistant Staphylococcus aureus. She has an AV shunt in her left arm. cc: Feroz Aranda MD
[2019-05-15] MEDS ORDERED: VRAYLAR PO SCH (21:00)
[2019-05-15] MEDS: SEROQUEL PO SCH (23:28)
[2019-05-15] MEDS: VRAYLAR PO SCH (23:28)
[2019-05-16] MEDS: TYLENOL PO PRN (00:43)
[2019-05-16] MEDS: HUMULIN R SUBQ SCH ×4 (06:25→20:53)
[2019-05-16] MEDS: PRILOSEC PO SCH (06:39)
[2019-05-16] MEDS: RENAGEL PO SCH ×3 (06:39→17:02)
[2019-05-16 07:39] LABS: CALCIUM 8.1 mg/dL (8.8-10.2); CREATININE 5.1 mg/dL (0.5-0.9)
[2019-05-16 08:05] LABS: POTASSIUM 6.2 mmol/L (3.5-5.1)
[2019-05-16] MEDS ORDERED: HEPARIN IV PRN (08:07)
[2019-05-16] MEDS ORDERED: TIGHT: 0.2 ML/HR FOR DIALYSIS MISC PRN (08:07)
[2019-05-16] MEDS ORDERED: NS 2,000 ML MISC PRN (08:07)
[2019-05-16] MEDS: TAMIFLU PO SCH (08:11)
[2019-05-16] MEDS: CRESTOR PO SCH (08:12)
[2019-05-16] MEDS: REQUIP PO SCH ×3 (08:12→17:01)
[2019-05-16] MEDS: BRILINTA PO SCH ×2 (08:12→20:01)
[2019-05-16] MEDS: ASPIRIN EC PO SCH (08:12)
--- NOTE | 2019-05-16 12:39 | NEPHROLOGY PROGRESS NOTE ---
DATE: 05/16/2019 SUBJECTIVE: The patient is sitting up in bed, resting. She has had no new issues overnight. OBJECTIVE: Vital Signs: Temperature 97.7 degrees, pulse 89, respiratory rate 15, blood pressure 153/67. Intake 560 mL, output 1.5 L on dialysis. General: Chronically ill- appearing, middle- aged female, sitting up in bed, awake and alert, no acute distress. HEENT: Normocephalic, atraumatic. CINDY. Her oral mucosa is moist. Neck: Supple with positive JVD. Cardiovascular: Regular rate and rhythm without murmur or gallop. Pulmonary: She is clear bilaterally. Abdomen: Obese, soft. Positive bowel sounds. Extremities: Bilateral AKA. Integumentary: Skin is warm and dry. Neurologic: Nonfocal. LABORATORY DATA: Sodium 138, potassium 6.2, creatinine 5.1, calcium 8.1. ASSESSMENT AND PLAN: End-stage renal disease with hyperkalemia. The patient initially had potassium of greater than 9. She was dialyzed yesterday. Today, her potassium still remains greater than 6. I will plan to go ahead and run her again today. We may not be able to obtain any additional ultrafiltration, but at least we can treat her potassium from a renal perspective secondary to history of noncompliance and being under-dialyzed. She will need to have access recirculation examined after discharge. Dictated by CALI Harvey for Dany Fofana MD Face to face encounter, data reviewed, discussed with Linda Brasher on 05/16/18. I agree with the above assessment and plan of care. cc: Dany Fofana MD [facility]
--- NOTE | 2019-05-16 13:09 | PROGRESS NOTE ---
DATE: 05/16/2019 SUBJECTIVE: She ate breakfast, and had no complaints. O2 was in the high 80s on 2 L per nasal cannula. Her IV site at the right shoulder was patent She has a fistula on the left arm with good palpable bruit. Bilateral quibk-spi-plsx amputation scheduled for dialysis today. PHYSICAL EXAMINATION: Vital Signs: Temperature 97.9, pulse 82, respirations 16, and blood pressure 176/75. HEENT: Pupils are equal and round. Lungs: Clear in all lung hernandez. Cardiovascular: Regular rhythm and rate without murmur or S3. Abdomen: Soft. Skin: Warm and dry. Blood sugar 212, 251, and 187. ASSESSMENT/PLAN: 1. End-stage renal disease on hemodialysis. She appears to have volume overload. She gets dialysis on Wednesday, Wednesdays and Fridays. We probably will dialyze her several days in a row. She presented with hyperkalemia. 2. Diabetes mellitus type 2. Continue to follow sugars. 3. History of coronary artery disease. Recent stent placement in December. She is on aspirin 81 mg a day. 4. History of hypertension. 5. History of obstructive sleep apnea. 6. Peripheral vascular disease status post bilateral ayorw-kzq-pijg amputations. REVIEW OF ORDERS: We put her back on her Seroquel 25 mg at bedtime. This really helped. Aspirin 81 mg a day. . Prilosec 20 mg daily, Tamiflu 75 mg p.o. daily, and Requip 3 mg p.o. t.i.d. Sevelamer 3200 mg p.o. t.i.d. and Brilinta 90 mg p.o. b.i.d. Aspirin 244 mg was given 1 time when she came in. She was given 1 dose of calcium gluconate 1 g on arrival as well. cc: Feroz Aranda MD [facility]
[2019-05-16] MEDS: VRAYLAR PO SCH (20:01)
[2019-05-16] MEDS: SEROQUEL PO SCH (20:01)
[2019-05-16] MEDS: LOPRESSOR IV PRN (21:47)
[2019-05-17 05:38] LABS: HEMATOCRIT 35.6 % (37.0-47.0); HEMOGLOBIN 10.6 g/dL (12.0-16.0); MCH 29.6 PG (27-31); MCHC 29.8 g/dL (33-37); MCV 99.4 FL (81-99); MPV 9.9 FL (7.4-10.4); RBC 3.58 XMIL (4.2-5.4); WBC 5.68 X1000 (4.8-10.8)
[2019-05-17 05:57] LABS: ALBUMIN 3.3 g/dL (3.5-5.0); CALCIUM 8.6 mg/dL (8.8-10.2); CREATININE 4.1 mg/dL (0.5-0.9); PHOSPHORUS 3.8 mg/dL (2.7-4.5)
[2019-05-17] MEDS ORDERED: TIGHT: 0.2 ML/HR FOR DIALYSIS MISC PRN (06:20)
[2019-05-17] MEDS ORDERED: HEPARIN IV PRN (06:20)
[2019-05-17] MEDS ORDERED: NS 2,000 ML MISC PRN (06:20)
[2019-05-17] MEDS: HUMULIN R SUBQ SCH ×4 (06:54→23:05)
[2019-05-17] MEDS: PRILOSEC PO SCH (06:55)
[2019-05-17] MEDS: RENAGEL PO SCH ×3 (06:55→17:51)
--- NOTE | 2019-05-17 08:29 | EKG Report ---
Test Performed on : 05/16/2019 8:23:24 PM Test Reason : NO EKG ORDER FOR MUSE Blood Pressure : / mmHG Vent. Rate : 132 BPM Atrial Rate : 136 BPM P-R Int : 000 ms QRS Dur : 082 ms QT Int : 302 ms P-R-T Axes : 000 057 160 degrees QTc Int : 447 ms Atrial fibrillation. with rapid ventricular response. Anterior infarct , age undetermined Inferior injury pattern ACUTE HI / STEMI Consider right ventricular involvement in acute inferior infarct Abnormal ECG No previous ECGs available Confirmed by Jose MARCH, Elvin Bills ([id number]) on 05/18/2019 12:22:27 PM
[2019-05-17] MEDS: REQUIP PO SCH ×3 (10:57→17:51)
[2019-05-17] MEDS: CRESTOR PO SCH (10:58)
[2019-05-17] MEDS: ASPIRIN EC PO SCH (10:58)
[2019-05-17] MEDS: TAMIFLU PO SCH (10:58)
[2019-05-17] MEDS: BRILINTA PO SCH ×2 (10:58→20:28)
[2019-05-17] MEDS: NORCO-5 PO PRN ×2 (14:06→23:07)
--- NOTE | 2019-05-17 16:06 | PROVIDER PROGRESS NOTE ---
Progress Note Subjective: She voices going in to Atrial Fibrillation in the last 24 hours and has some shortness of breath on exertion. Denies all other uremic complaints. Objective: temperature 97.5, pulse 88, respirations 20, blood pressure 165/77, 02 sat 100% on 2 L nasal cannula. General: obese white female lying in bed receiving hemodialysis in no distress. HEENT: atraumatic, Normocephalic. Pupils equal and reactive. Mucous membranes moist. Skin: warm and dry Neck: supple, 6 cm JVD observed, trachea midline. Cardiovascular: S1S2, regular rate and rhythm. No murmur gallop noted. Respiratory: lungs clear with equal entry anteriorly Abdomen: obese, soft, nontender and nondistended. Bowel sounds active. No organomegaly noted. : not inspected Extremities: bilateral above the knee amputation. No clubbing, cyanosis, or edema to BUE. Neurological: alert and oriented to person, place, and time. Labs: WBC 5.68, hemoglobin 10.6, hematocrit 35.6, platelet count 173, sodium 137, potassium 5.0, chloride 98, carbon dioxide 25, BUN 33, creatinine 4.1. Intake 460, output 4000. Impression: Chronic kidney disease stage 5D. She was hemodialyzed yesterday mainly for Hyperkalemia and volume. She is currently receiving her routine hemodialysis treatment today with an attempt for a 2 L ultrafiltration. Potassium is within normal limits. Blood pressure. Stable. Fluid volume. Euvolemic on exam. Anemia. Stable. Electrolytes. Stable. Acid base balance. Stable. Nutrition. Adequate. Medication review. No change.
--- NOTE | 2019-05-17 17:56 | PROGRESS NOTE ---
DATE: 05/17/2019 SUBJECTIVE: Ms. Nelson states she feels much better. She is sitting up in bed. She has been able to eat. Breathing has been comfortable. She still has a little bit of cough. She had dialysis and tolerated that well. Fistula to the left. UA positive for thrill and bruit. OBJECTIVE: Temperature 97.9 degrees, pulse 102, respirations 18, and blood pressure 131/57. Pupils are equal and round.Lungs: Clear in all lung hernandez. Cardiovascular: Regular rhythm and rate without murmur or S3. Abdomen: Soft. Skin: Warm and dry. Urine output is a little less than 6000 mL. ASSESSMENT AND PLAN: 1. Chronic kidney disease stage 5D. She was hemodialyzed yesterday mainly for hyperkalemia volume, and then got ultrafiltration today. Volume status looks better. Blood pressure stable. Volume appears euvolemic. 2. Anemia, stable. Electrolytes and acid base seem to be stable. Nutrition. She has good p.o. intake. 3. Diabetes mellitus type 2. Continue to follow sugars. 4. History of coronary artery disease. Recent stent placement in December. She is on aspirin 81 mg a day. 5. Hypertension. 6. History of obstructive sleep apnea. 7. Peripheral vascular disease status post bilateral [id number] amputations. REVIEW OF ORDERS: I do not see any change. LABORATORY DATA: Labs from today, white count 5680, hematocrit 35, and platelet count 173,000. Sodium 137, potassium 5.0, chloride 98, BUN 33, and creatinine 4.0. Blood sugars 269, 175, and 182. cc: Feroz Aranda MD
[2019-05-17] MEDS: SEROQUEL PO SCH (20:29)
[2019-05-17] MEDS: VRAYLAR PO SCH (20:36)
[2019-05-17] MEDS: COREG PO SCH (20:37)
[2019-05-18] MEDS: TYLENOL PO PRN (02:32)
[2019-05-18] MEDS: LOPRESSOR IV PRN (03:38)
[2019-05-18] MEDS: NORCO-5 PO PRN ×2 (05:00→12:37)
--- NOTE | 2019-05-18 05:20 | EKG Report ---
Test Performed on : 05/18/2019 03:33:32 AM Test Reason : CONVERSION FROM SR TO AFIB/AFLUTTER Blood Pressure : / mmHG Vent. Rate : 127 BPM Atrial Rate : 170 BPM P-R Int : 000 ms QRS Dur : 086 ms QT Int : 328 ms P-R-T Axes : 000 000 081 degrees QTc Int : 476 ms Atrial fibrillation. with rapid ventricular response. Low voltage QRS Cannot rule out Anteroseptal infarct , age undetermined Abnormal ECG Confirmed by Jose MARCH, Elvin Bills ([id number]) on 05/18/2019 12:24:00 PM
[2019-05-18 05:50] LABS: HEMATOCRIT 37.7 % (37.0-47.0); HEMOGLOBIN 11.3 g/dL (12.0-16.0); MCH 29.4 PG (27-31); MCV 98.2 FL (81-99); RBC 3.84 XMIL (4.2-5.4); RDW 15.7 % (11.5-14.5); WBC 5.96 X1000 (4.8-10.8)
[2019-05-18] MEDS: RENAGEL PO SCH ×3 (06:20→16:11)
[2019-05-18] MEDS: HUMULIN R SUBQ SCH ×3 (06:21→18:52)
[2019-05-18] MEDS: PRILOSEC PO SCH (06:21)
[2019-05-18 06:42] LABS: ALBUMIN 3.1 g/dL (3.5-5.0); CALCIUM 9.2 mg/dL (8.8-10.2); CREATININE 4.3 mg/dL (0.5-0.9); PHOSPHORUS 4.2 mg/dL (2.7-4.5); POTASSIUM 4.8 mmol/L (3.5-5.1)
[2019-05-18] MEDS: CRESTOR PO SCH (08:35)
[2019-05-18] MEDS: ASPIRIN EC PO SCH (08:35)
[2019-05-18] MEDS: REQUIP PO SCH ×3 (08:35→18:20)
[2019-05-18] MEDS: COREG PO SCH ×2 (08:35→08:41)
[2019-05-18] MEDS: BRILINTA PO SCH (08:36)
[2019-05-18] MEDS: TAMIFLU PO SCH (08:36)
[2019-05-18] MEDS ORDERED: LOPRESSOR PO SCH (09:00)
[2019-05-18] MEDS ORDERED: NS 2,000 ML MISC PRN (11:16)
[2019-05-18] MEDS ORDERED: HEPARIN IV PRN (11:16)
[2019-05-18 13:06] VITALS: BP 167/75
--- NOTE | 2019-05-18 16:05 | DISCHARGE SUMMARY ---
ADMISSION DATE: 05/15/2019 DISCHARGE DATE: 05/18/2019 HOSPITAL COURSE: Patient of Dr. Silverio Welch and Dr. Dany Fofana, presented with shortness of breath. A 48-year-old female, who is well known to our service. She does have a history of end-stage renal disease on hemodialysis on Mondays, Wednesdays, and Fridays. Insulin- dependent diabetes mellitus, diabetic neuropathy, hypothyroidism, obstructive sleep apnea, depression, chronic pain, coronary artery disease status post 7 stents, bilateral [id number] amputations. The patient states that she began having shortness of breath and progressively got worse, was admitted for hyperkalemia, given 12 units of regular insulin and 1 amp of D 50 and Kayexalate 30 mg by mouth and felt she had a little volume overload, so she was dialyzed. Dr. Fofana followed and she had pulmonary venous hypertension. She showed steady improvement, followed her sugars, dialyzed for several days in a row. Volume status improved and felt she could go home on 05/18/2019. DISCHARGE MEDICATIONS: 1. Aspirin 81 mg a day. 2. Vraylar, which is cariprazine 3 mg at bedtime. 3. I think she takes [place] at home for pain. 4. Metoprolol 50 mg b.i.d. 5. Prilosec 20 mg a day. 6. We did give her some Tamiflu. She finished that course out, Tamiflu 75 mg daily. 7. Seroquel 25 mg at bedtime. 8. Requip 3 mg p.o. t.i.d. 9. Crestor 10 mg a day. 10. Renagel 3200 mg p.o. t.i.d. 11. Brilinta 20 mg b.i.d. FOLLOWUP: She will follow up with Dr. Fofana and Dr. Welch. DISPOSITION: Discharge her home. cc: Feroz Aranda MD
--- NOTE | 2019-05-18 18:31 | PROVIDER PROGRESS NOTE ---
Progress Note Subjective: She voices feeling well and has no complaints. Objective: temperature 97.9, pulse 78, respirations 19, blood pressure 173/68, O2 sat 100% on room air. General: obese white female lying in bed receiving hemodialysis in no distress. HEENT: atraumatic, Normocephalic. Pupils equal and reactive. Mucous membranes moist. Skin: warm and dry Neck: supple, 6 cm JVD observed, trachea midline. Cardiovascular: S1S2, regular rate and rhythm. No murmur gallop noted. Respiratory: lungs clear with equal entry posteriorly Abdomen: obese, soft, nontender and nondistended. Bowel sounds active. : not inspected Extremities: bilateral above the knee amputation. No clubbing, cyanosis, or edema to BUE. Neurological: alert and oriented to person, place, and time. Labs: WBC 5.96, hemoglobin 11.3, hematocrit 37.7, platelet count 180, sodium 133, potassium 4.8, chloride 96, carbon dioxide 22, BUN 38, creatinine 4.3. Intake 742, output 2962. Impression: Chronic kidney disease stage 5D. She will plan to have an extr hemodialysis treatment today for volume management. Blood pressure. Above target. She has listed Coreg as an allergy but was scheduled to take this BID. She has been refusing it. I started her back on her home dose of metoprolol 50mg BID. Fluid volume. Euvolemic on exam. Anemia. Stable. Electrolytes. And acid base balance. Corrections with hemodialysis today. Nutrition. Adequate Medication review. Started norco.
== END 2019-05-18 20:46 | disposition home health service (06) | DRG 640 ==
LOC: SUPCPDRO → ED 02:06 → EDIPHOLD 05:10 → SUATTDRO 05:10 → ICU 07:42 → 1N 05-17 04:59
PROVIDERS: ATTEND Emergency Medicine

== ENCOUNTER 2019-05-22 06:23 | Inpatient (IN) ==
--- NOTE | 2019-05-22 07:13 | PROVIDER DOCUMENTATION ---
HPI-Syncope/Dizziness - General Chief Complaint: Head Injury Stated Complaint: Fall from wheelchair Time Seen by Provider: 05/22/19 07:03 Source: patient Allergies/Adverse Reactions: Patient Allergies Allergy/AdvReac Type Severity Reaction Status Date / Time baclofen Allergy DIFFICULTY Verified 05/22/19 08:52 AWAKENING hydralazine Allergy HALLUCINATI Verified 05/22/19 08:52 ONS promethazine [From Phenergan] Allergy DIFFICULTY Verified 05/22/19 08:52 AWAKENING caffeine AdvReac Intermediate RAPID Verified 05/22/19 08:52 HEART RATE carvedilol [From Coreg] AdvReac Intermediate RAPID Verified 05/22/19 08:52 HEART RATE cyclobenzaprine HCl * AdvReac Intermediate DIARRHEA Verified 05/22/19 08:52 [From Flexeril] sodium AdvReac Intermediate EXTREME Verified 05/22/19 08:52 SWELLING atorvastatin calcium * AdvReac RASH Verified 05/22/19 08:52 [From Lipitor] clindamycin AdvReac DIARRHEA Verified 05/22/19 08:52 paroxetine [From Paxil] AdvReac Unknown Verified 05/22/19 08:52 trazodone AdvReac HALLUCINATI Verified 05/22/19 08:52 ONS Home Medications: Home Medication List Medication Instructions Recorded Confirmed Last Taken Type Gabapentin 600 mg PO TID 04/05/17 05/15/19 04/02/19 08:30 History Pantoprazole [Protonix] 40 mg PO DAILY 07/26/17 05/15/19 04/02/19 08:30 History Ropinirole HCl [Requip] 3 mg PO TID 06/28/18 05/15/19 04/02/19 08:30 History Aspirin [Aspir-Low] 81 mg PO DAILY 07/27/18 05/15/19 04/02/19 08:30 History Venlafaxine [Effexor] 75 mg PO DAILY 07/27/18 05/15/19 04/02/19 08:30 History Albuterol Sulfate [Ventolin Hfa] 90 mcg INH PRN PRN 10/19/18 05/15/19 04/02/19 09:15 History Insulin Glargine,Hum.rec.anlog 10 unit SQ DAILY #5 insuln.pen 12/15/18 05/15/19 04/01/19 21:00 Rx [Lantus Solostar] Glipizide E.r. [Glucotrol Xl] 2.5 mg PO DAILY 01/22/19 05/15/19 04/02/19 08:30 History Quetiapine Fumarate 25 mg PO QHS 01/22/19 05/15/19 04/01/19 21:00 History Rosuvastatin Calcium 10 mg PO DAILY 01/22/19 05/15/19 04/02/19 08:30 History Sevelamer Carbonate [Renvela] 4 tab PO AC 01/22/19 05/15/19 04/01/19 21:00 History Cariprazine HCl [Vraylar] 3 mg PO DAILY 04/02/19 05/15/19 04/02/19 08:30 History Ticagrelor [Brilinta] 90 mg PO BID 04/02/19 05/15/19 04/02/19 History 0900 Metoprolol [Lopressor] 50 mg PO BID tab 04/04/19 05/15/19 Unknown Rx - History of Present Illness-Syncope/Dizzy Nature of Presenting Problem: Patient reports that she fell out of her wheelchair and hit her head. She states that she is not sure if she just fell or had a syncopal episode as she does not remember the fall. She complains of dull, non-radiating right elbow pain and head pain. She denies any chest pain or shortness of breath. Review of Systems - Adult - REVIEW OF SYSTEMS - ADULT Constitutional: reports: no symptoms reported Eyes: reports: no symptoms reported Ears, Nose, Mouth & Throat: reports: no symptoms reported Cardiovascular: reports: no symptoms reported Respiratory: reports: no symptoms reported Gastrointestinal: reports: no symptoms reported Genitourinary: reports: no symptoms reported Musculoskeletal: reports: no symptoms reported Integumentary: reports: no symptoms reported Neurological: reports: no symptoms reported Psychiatric: reports: no symptoms reported Endocrine: reports: no symptoms reported Hematologic/Lymphatic: reports: no symptoms reported Allergic/Immunologic: reports: no symptoms reported All Other Systems: Reviewed and Negative Past History - Adult - PAST MEDICAL HISTORY-ADULT Review of Records: reports: Old Records Reviewed Major Childhood Illnesses: reports: denies history Cardiovascular: reports: HTN, hyperlipidemia Respiratory: reports: sleep apnea, other (sleep apnea) Gastrointestinal: reports: denies history Obstetrical/Gynecological: reports: denies history Genitourinary: reports: dialysis, kidney disease Musculoskeletal: reports: chronic pain (low back) Neurological: reports: other (diabetic neuropathy) Psychiatric: reports: depression Endocrine/Immune: reports: Diabetes, thyroid disorder (hypothyroid) Other Conditions: reports: denies history - PRIOR SURGERIES/PROCEDURES Surgical/Procedure History: reports: hysterectomy, orthopedic (extremity) (BKA), other (toe nail removal; toe amputation) - PRIOR HOSPITALIZATIONS Prior Hospitalizations: reports: for other non-related - IMMUNIZATION STATUS Childhood Immunizations: See Nurse Assessment Flu Vaccine: See Nurse Assessment - FAMILY HISTORY Family History: reviewed, not pertinent Physical Exam-General - PHYSICAL EXAM-ADULT Initial Vital Signs Reviewed: Yes - CONSTITUTIONAL General Appearance: appears well, alert, no apparent distress - EYES Eyes: PERRL/EOMI, pink conjunctivae - HEAD, EARS, NOSE, MOUTH & THROAT HENMT: moist mucous membranes. negative: normocephalic/atraumatic (right forehead hematoma) - NECK Neck: non-tender, full range of motion, supple - RESPIRATORY Respiratory: chest non-tender, lungs clear, normal breath sounds - CARDIOVASCULAR Cardiovascular: normal peripheral pulses, regular rate, rhythm, no edema - GASTROINTESTINAL (ABDOMEN) Abdominal Exam: non tender, soft - LYMPHATIC Lymphatic: no adenopathy, axilla node tender - MUSCULOSKELETAL Back Exam: normal inspection, no CVA tenderness Extremity: normal range of motion, non-tender - SKIN Integumentary: normal color, normal turgor - NEUROLOGIC Neurologic: material requisitioner II-XII nml as tested, grossly normal - PSYCHIATRIC Psych/Mental Status: normal mood/affect, normal thought content, oriented x 3 Progress - PLAN OF CARE/RESULTS Progress/Plan/Lab Results: Laboratory Results - last 24 hr 05/22/19 05/22/19 05/22/19 08:25 08:25 08:25 WBC 8.39 RBC 3.73 L Hgb 10.9 L Hct 35.6 L MCV 95.4 MCH 29.2 MCHC 30.6 L RDW Std Deviation 15.5 H Plt Count 235 MPV 10.2 Immature Gran % (Auto) 0.2 Neut % (Auto) 62.1 Lymph % (Auto) 24.3 [place] % (Auto) 5.7 Eos % (Auto) 7.0 Baso % (Auto) 0.7 Immature Gran # (Auto) 0.02 Neut # (Auto) 5.20 Lymph # (Auto) 2.04 [place] # (Auto) 0.48 Eos # (Auto) 0.59 Baso # (Auto) 0.06 PT 13.0 INR 0.98 PTT (Actin FS) 25.6 Sodium 131 L Potassium 6.0 H* Chloride 93 L Carbon Dioxide 19 L Anion Gap 19 BUN 71 H Creatinine 7.2 H Estimated GFR/1.73 m2 6 BUN/Creatinine Ratio 10 Glucose 274 H Calculated Osmolality 293 Calcium 8.2 L Total Bilirubin 0.26 AST 11 ALT 14 Alkaline Phosphatase 142 H Troponin T High Sens Total Protein 7.1 Albumin 3.7 Globulin 3.4 Albumin/Globulin Ratio 1.1 05/22/19 08:25 WBC RBC Hgb Hct MCV MCH MCHC RDW Std Deviation Plt Count MPV Immature Gran % (Auto) Neut % (Auto) Lymph % (Auto) [place] % (Auto) Eos % (Auto) Baso % (Auto) Immature Gran # (Auto) Neut # (Auto) Lymph # (Auto) [place] # (Auto) Eos # (Auto) Baso # (Auto) PT INR PTT (Actin FS) Sodium Potassium Chloride Carbon Dioxide Anion Gap BUN Creatinine Estimated GFR/1.73 m2 BUN/Creatinine Ratio Glucose Calculated Osmolality Calcium Total Bilirubin AST ALT Alkaline Phosphatase Troponin T High Sens 123 H* Total Protein Albumin Globulin Albumin/Globulin Ratio Orders Category Date Time Status Admit - [facility] Routine AdmDCTranf 05/22/19 09:36 Active Activity - Up with Assistance ORDERED Care 05/22/19 09:36 Active Intake and Output-Strict ORDERED Care 05/22/19 09:36 Active Nursing- MD Consult Request ROUTINE Care 05/22/19 09:38 Active Nursing- Obtain EKG once Care 05/22/19 07:08 Active Vital Signs Order Q4H Care 05/22/19 09:36 Active Z-Document. for Tele Applied ORDERED Care 05/22/19 09:37 Active Physician/Provider Consults Routine Cons 05/22/19 09:36 Ordered Physician/Provider Consults Routine Cons 05/22/19 09:36 Ordered NPO Diet 05/22/19 09:[address] HEAD/C-SPINE W/O CONTRAST [CT] Stat Exams 05/22/19 06:30 Completed FOREARM-RIGHT [RAD] Stat Exams 05/22/19 06:31 Completed ABG [RESP] Routine Lab 05/22/19 09:43 Ordered CBC WITH DIFF [HEME] Routine Lab 05/23/19 06:00 Uncollected CBC WITH ELECTRONIC DIFF [HEME] Stat Lab 05/22/19 08:25 Completed CK PROFILE [SP CHEM] Q3H Lab 05/22/19 11:30 Uncollected CK PROFILE [SP CHEM] Q3H Lab 05/22/19 14:30 Uncollected COMPREHENSIVE METABOLIC PANEL [CHEM] Stat Lab 05/22/19 08:25 Completed PROTIME WITH INR [COAG] Stat Lab 05/22/19 08:25 Completed PTT [COAG] Stat Lab 05/22/19 08:25 Completed TROPONIN T HIGH SENSITIVITY Q3 Lab 05/22/19 11:30 Uncollected TROPONIN T HIGH SENSITIVITY Q3 Lab 05/22/19 14:30 Uncollected TROPONIN T HIGH SENSITIVITY Q3H Lab 05/22/19 17:30 Uncollected TROPONIN T HIGH SENSITIVITY Stat Lab 05/22/19 08:25 Completed Telemetry [OM.EQ] Routine Oth 05/22/19 09:36 Active discussed with hospitalist service with plan for admission Result Diagrams: 05/22/19 08:25 05/22/19 08:25 - EKG 1 EKG Read and Signed by:: Roque Bello (NSR 61, no ectopy) Rate: 61 Rhythm: normal sinus [place]: normal - XRAY 1 XRAY: Right XRAY Study: Elbow (no fx) - CT/MRI 1 CT Study: Head (no ICU) 2 CT Study: Cervical Spine (no injury noted) Departure - Departure Date of Disposition Decision: 05/22/19 Time of Disposition Decision: 09:55 DIAGNOSIS: Morbid (severe) obesity due to excess calories, ESRD (end stage renal disease) on dialysis, Hyperkalemia Diabetes mellitus Qualifiers: Diabetes mellitus type: other specified (including CAR) Diabetes mellitus prison insulin use: unspecified prison insulin use status Diabetes mellitus complication status: with other specified complication Qualified Code(s): E13.69 - Other specified diabetes mellitus with other specified complication Syncope Qualifiers: Syncope type: unspecified Qualified Code(s): R55 - Syncope and collapse Disposition: ADMITTED INPATIENT 09 Certified Medical Emergency: Emergent Condition: Serious Referrals and Follow-Ups: Silverio Welch MD [Primary Care Provider] - - Critical Care Note This patient required my direct & personal management of CC.: Yes Total Time (mins): 36 Critical Care Statement: This patient required my direct personal management to treat or rule out processes, the absence of which, could potentiallly result in sudden, clinically significant life or limb threatening deterioration. Attestation - Physician/ DELBERT Attestation Patient care was provided by Advanced Practice Provider:: No The physician spent face to face time with patient:: Yes Advanced Practice Provider documentation review:: Supervising physician onsite and consulted in the evaluation and care of this patient. The physician did have a face to face encounter with the patient.
--- NOTE | 2019-05-22 07:29 | Diag Imaging Result Doc PS360 ---
FOREARM-RIGHT - 05/22/2019 INDICATION: fall TECHNIQUE: Two views COMPARISON: None FINDINGS: There is no fracture or subluxation. Joint spaces are preserved. There is some superficial soft tissue swelling at the dorsal and lateral forearm. IMPRESSION: Superficial soft tissue contusion. Electronically signed by Fercho Gary 05/22/2019 7:27 AM
--- NOTE | 2019-05-22 08:05 | Diag Imaging Result Doc PS360 ---
EXAM: CT HEAD/C-SPINE W/O CONTRAST INDICATION: fall with head injury TECHNIQUE: This exam was performed using automated exposure control, adjustment of mA or kV according to patient size, and/or use of iterative reconstruction technique. COMPARISON: 01/22/2019 FINDINGS: Head: There is no definite acute infarct given the limited sensitivity of CT versus MRI. There is no discrete intracranial mass, mass effect, or intracranial hemorrhage. There is a very large subgaleal scalp hematoma anteriorly on the right that measures up to 3 cm in thickness. The calvaria is intact. C-spine: Beam hardening artifact related to body habitus limits fine bony details of the mid and lower cervical spine. There are ventral marginal osteophytes at C4-5 and C5-6 that are stable. Otherwise, there is no discrete fracture, subluxation, or intrinsic osseous lesion. The surrounding soft tissues are essentially unremarkable as imaged. IMPRESSION: 1.No evidence of acute intracranial pathology. 2.Large right frontal scalp hematoma. 3.No evidence of fracture or other definite acute C-spine injury. Electronically signed by Aguila Gamez 05/22/2019 8:03 AM
[2019-05-22 08:44] LABS: BASO# 0.06 X1000 (0.0-0.2); BASO% 0.7 % (0.0-0.8); EOS# 0.59 X1000 (0.0-0.7); HEMATOCRIT 35.6 % (37.0-47.0); HEMOGLOBIN 10.9 g/dL (12.0-16.0); IMM GRAN# 0.02 X1000 (0.0-0.04); IMM GRAN% 0.2 % (0.0-0.5); LYMPH# 2.04 X1000 (1.2-3.4); LYMPH% 24.3 % (20.5-51.1); MCH 29.2 PG (27-31); MCHC 30.6 g/dL (33-37); MCV 95.4 FL (81-99); MONO# 0.48 X1000 (0.11-0.59); MONO% 5.7 % (1.7-9.3); MPV 10.2 FL (7.4-10.4); NEUT% 62.1 % (42.2-75.2); PLT 235 X1000 (130-400); RBC 3.73 XMIL (4.2-5.4); RDW 15.5 % (11.5-14.5); WBC 8.39 X1000 (4.8-10.8)
[2019-05-22 08:57] LABS: ALB/GLOB RATIO 1.1; ALBUMIN 3.7 g/dL (3.5-5.0); CALCIUM 8.2 mg/dL (8.8-10.2); CREATININE 7.2 mg/dL (0.5-0.9); TOTAL BILIRUBIN 0.26 mg/dL (0.20-1.00); TOTAL PROTEIN 7.1 g/dL (6.3-8.3)
[2019-05-22 09:07] LABS: INR 0.98
[2019-05-22 09:08] LABS: PTT 25.6 Seconds (22.3-41.8)
--- NOTE | 2019-05-22 10:07 | EKG Report ---
Test Performed on : 05/22/2019 07:47:44 AM Test Reason : ED. No order in [place] Blood Pressure : / mmHG Vent. Rate : 061 BPM Atrial Rate : 061 BPM P-R Int : 184 ms QRS Dur : 086 ms QT Int : 466 ms P-R-T Axes : 011 038 019 degrees QTc Int : 469 ms Normal sinus rhythm. with sinus arrhythmia. Low voltage QRS Cannot rule out Anterior infarct (cited on or before 06-FEB-2019) Abnormal ECG When compared with ECG of 18-MAY-2019 03:33, Sinus rhythm. has replaced Atrial fibrillation. Vent. rate has decreased BY 66 BPM Questionable change in initial forces of Anteroseptal leads T wave inversion less evident in Inferior leads Unconfirmed Result
[2019-05-22 10:09] LABS: ALLEN TEST YES; BE -3.7 mmoll (-3.0-3.0); BLOOD TYPE ARTERIAL; METHB 0.6 % (0.0-1.5); O2(CT) 13.6 mL/dL (15.0-23.0); O2HB 93.3 % (95.0-99.0); PO2(98.6) 74 mmHg (60-100); SAMPLE BLOOD; SAO2 95.1 % (95.0-100.0); THB 10.3 g/dL (11.5-17.4); pH(98.6) 7.27 (7.35-7.45)
[2019-05-22 10:10] LABS: MODALITY ROOM AIR; PCO2(98.6) 51 mmHg (35-45)
[2019-05-22] MEDS ORDERED: BRILINTA PO SCH (11:30)
--- NOTE | 2019-05-22 11:46 | Diag Imaging Result Doc PS360 ---
CHEST-PORTABLE - 05/22/2019 INDICATION: Hypercarbic respiratory failure COMPARISON: 05/15/2019 FINDINGS: Lung volumes are critically low with nonspecific central crowding. No dense infiltrates. IMPRESSION: Critically low lung volumes with nonspecific central crowding. May suggest obesity hypoventilation. Electronically signed by Fercho Gary 05/22/2019 11:44 AM
[2019-05-22] MEDS ORDERED: LANTUS INSULIN SUBQ SCH (12:30)
[2019-05-22] MEDS ORDERED: NS 2,000 ML MISC PRN (13:48)
[2019-05-22] MEDS ORDERED: ALBUTEROL 0.5% INH CONC FOR HYPERKALEMIA INH ONE (13:54)
[2019-05-22] MEDS ORDERED: HUMULIN R IV ONE (13:59)
[2019-05-22] MEDS ORDERED: D50W SYRINGE IV ONE (14:00)
[2019-05-22 14:31] LABS: ALLEN TEST YES; BE -3.5 mmoll (-3.0-3.0); BLOOD TYPE ARTERIAL; HCO3-(ACT) 22.2 mmoll (20.0-26.0); METHB 0.4 % (0.0-1.5); O2(CT) 14.9 mL/dL (15.0-23.0); O2HB 96.6 % (95.0-99.0); PCO2(98.6) 37 mmHg (35-45); PO2(98.6) 166 mmHg (60-100); SAMPLE BLOOD; SRATE 14 BPM; THB 10.7 g/dL (11.5-17.4); pH(98.6) 7.37 (7.35-7.45)
--- NOTE | 2019-05-22 14:32 | HISTORY AND PHYSICAL ---
ADDENDUM: I agree with most components of history, physical, assessment and plan dictated nurse practitioner's note. In brief Ms Nelson is 48 years old lady with past medical history of coronary artery disease status post multiple stent at least 9 stents the latest 1 being in January 2019, end-stage renal disease on Wednesday, Wednesday, Wednesday hemodialysis, insulin- dependent diabetes mellitus, obstructive sleep apnea, chronic pain, bilateral below-knee amputation who comes in with chief complaints of mechanical fall. Apparently patient did not remember the circumstances of fall she could not tell me whether she was sleeping and she passed out or she was sleeping and she did not realize and fell down but in any case when she presented to the emergency room she was found to be drowsy and had elevated troponin so the hospitalist team was consulted further management. SUBJECTIVE: At the time of my evaluation patient denies any chest pain, shortness of breath, she denies any nausea, vomiting or abdominal pain. Her vitals detected temperature of 97.7 degrees, pulse 58, respiratory 12, blood pressure 124/86, saturating 96%. PHYSICAL EXAMINATION: She has a hematoma affect of her right scalp. Oral cavity was moist. Air entry bilaterally equal. No wheeze, rhonchi or crackles. S1, S2 normal. No murmur or gallop. ABDOMEN: Soft, nontender. She has a left forearm AV fistula. She has bilateral below-knee amputation. She was drowsy but arousable. LABS: Detected normocytic anemia with hemoglobin of 10.9, platelet of 235,000. Her coagulation had INR of 0.9. She was found to have acute hypercarbic respiratory failure with pH of 7.27, pCO2 of 51, her lactate was normal. She did have hyponatremia, hyperkalemia, hypochloremia, elevated BUN and creatinine, likely in the setting of her end-stage renal disease. Microbiology no data. IMAGING: Chest x-ray performed had critically low lung volumes could be in the setting of obesity hypoventilation syndrome. Forearm x-ray had superficial soft tissue contusion. Head and cervical spine CT had no evidence of acute intracranial pathology, there was a large right frontal hematoma without evidence of fracture or C-spine injury. Electrocardiogram had normal sinus rhythm, low voltage QRS. ASSESSMENT AND PLAN: 1. Mechanical fall leading to head injury and scalp hematoma. This could be in the setting of acute hypercarbic respiratory failure. She may have a component of obstructive sleep apnea or obesity hypoventilation syndrome. She is also listed to be taking high dose of gabapentin, venlafaxine, quetiapine, cariprazine considering her end-stage renal disease. The excretion some of these medications could be challenging that could have caused her drowsiness and that could have led to her mechanical fall episode. 2. Acute hypercarbic respiratory failure. She is morbidly obese, on top of that use of multiple sedate medications could have contributed to hypercarbic respiratory failure. She may also have obstructive sleep apnea and obesity hypoventilation syndrome. 3. Insulin-dependent diabetes mellitus. 4. End-stage renal disease on Wednesday, Wednesday, Wednesday hemodialysis. 5. History of coronary artery disease requiring at least 9 stents in the past and elevated troponins currently. PLAN: I will start patient on BiPAP and follow up with serial ABGs. Her chest x-ray did not have any evidence of pneumonia. She would need outpatient evaluation for sleep studies and obesity hypoventilation syndrome. I will resume her aspirin, Brilinta, metoprolol and rosuvastatin concerning her history of coronary artery disease and I will trend her troponins. EKG does not have ST depressions or elevations concerning acute coronary syndrome. Her elevated troponin could be just in the setting of end-stage renal disease however I will keep trending it. I will also consult Nephrology for dialysis and treat her hyperkalemia with albuterol, insulin D50. DISPOSITION: I will monitor patient inside the hospital. Plan of care discussed with patient, her questions have been satisfactorily answered. cc: MD SAMUEL Acosta
[2019-05-22 14:33] LABS: MODALITY BI PAP
--- NOTE | 2019-05-22 17:17 | HISTORY AND PHYSICAL ---
CHIEF COMPLAINT: Syncope, fall. HISTORY OF PRESENT ILLNESS: This is a 48-year-old female with a history of coronary artery disease status post multiple stents with the last being January 2019, end- stage renal disease on Wednesday, Wednesday, Wednesday hemodialysis, obstructive sleep apnea with no CPAP for the last 2 years, chronic pain, insulin-dependent diabetes and kotmm-prr-[id number] amputation bilateral. She presents to the emergency room after falling out of her wheelchair. She states that she does not remember any of the events prior to the fall. She stated "I was sitting in my wheelchair and the next thing I know I was on the ground." After arriving in the emergency room the patient was drowsy. She would wake to her name being called speak to someone and then fall asleep while talking. She stated this was normal for her and that she has been doing this since her CPAP machine broke. She denied any dizziness, any chest pain or palpitations, any fevers, chills. She was noted to have elbow pain and head pain. She did have a 1 inch laceration to her scalp and hematoma to her right forearm. PAST MEDICAL HISTORY: 1. CAD status post multiple stents. 2. End-stage renal disease on Wednesday, Wednesday, Wednesday hemodialysis. 3. Insulin-dependent diabetes mellitus. 4. Obstructive sleep apnea noncompliant with CPAP for 2 years. 5. Chronic pain. 6. Bilateral [id number]-ncf-[id number] amputation. PAST SURGICAL HISTORY: 1. Bilateral spqze-wjz-oyut amputation. 2. Hysterectomy. 3. AV shunt placement left arm for dialysis. SOCIAL HISTORY: She denies any alcohol, tobacco or illicit drug use. FAMILY HISTORY: Coronary artery disease in her mother and siblings, hypertension in mother and siblings. ALLERGIES: Baclofen, hydralazine, Tylox, Phenergan, caffeine, Coreg, Flexeril, Lipitor, clindamycin, Paxil and trazodone. HOME MEDICATIONS: A list will be obtained by the nursing staff and once verified will review and restart as appropriate. REVIEW OF SYSTEMS: Discussed with patient with pertinent positives stated in the HPI. She denied any syncope or dizziness, any chest pain or palpitations, shortness of breath, cough, fever, chills, any nausea, vomiting, diarrhea, constipation, black or bloody vomitus or stools, any urinary symptoms. PHYSICAL EXAM: This is a 48-year-old female who is lying on the stretcher in the emergency room in no distress. VITAL SIGNS: Blood pressure is 124/86 with a heart rate of 60 respirations are 16, temperature is 97.7 degrees with O2 saturations that are 95 to 97 percent on room air. HEENT: Head is normocephalic, atraumatic. Mucous membranes are moist. NECK: Supple with trachea midline. CARDIOVASCULAR: Regular rate and rhythm. S1 and S2 appreciated. No murmurs. PULMONARY: Breath sounds are clear with no increased work of breathing noted. Chest rise falls symmetric with respiration. GASTROINTESTINAL: Abdomen soft, nontender, nondistended. Bowel sounds in all 4 quadrants. EXTREMITIES: Bilateral vvbvh-tzm-lcxo amputation. She does have left arm fistula with thrill palpable, bruit audible. NEUROLOGIC: She is drowsy. She wakes to her name being called. LABS: WBC is 8.3 with hemoglobin 10.9, hematocrit 35.6, platelets of 235,000. INR 0.98. ABGs at 9:49, pH of 7.27 with a pCO2 of 51, PO2 of 74, bicarb of 22, this was on room air. Chemistry, sodium 131, potassium 6, chloride 93, CO2 19, BUN 71 with a creatinine of 7.2, estimated GFR 6. Troponin was 123. Chest x-ray reveals critically low lung volumes with nonspecific central crowding may suggest obesity hypoventilation. EKG revealed sinus rhythm at a rate of 61. ASSESSMENT AND PLAN: 1. Fall, possible syncopal episode. 2. End-stage renal disease the patient on Wednesday, Wednesday, Wednesday hemodialysis. 3. Hyperkalemia. 4. Diabetes mellitus with noncompliance. 5. Syncope . 6. Morbid obesity. 7. Acute hypercapnic respiratory failure in a patient with known obstructive sleep apnea who does not use her machine. 8. Coronary artery disease requiring at least 9 stents with elevated troponins. PLAN: We placed the patient on BiPAP. We will follow up with ABGs. We will identify her home medications and continue these as appropriate. She will go to hemodialysis then will admit her to the floor. We will do daily weights with strict I and O. We will consult Dr. Fofana. We will trend troponins as well as cardiac profile, do daily renal profile, pattern blood glucose with sliding scale insulin. I did speak with the patient about the importance of having a repeat sleep study and obtaining another CPAP machine as it has been over 2 years since she has last use one. After obtaining the blood gas as above we did place the patient on BiPAP, within an hour the patient was awake and alert. Patient was examined and plan was discussed with Dr. Mccoy. Dictated by CALI Lopes for Yash Mccoy MD cc: CALI Lopes MD I agree with most components of history, physical, assessment and plan. A separate addendum has been dictated. MTDIveth
[2019-05-22] MEDS: TYLENOL PO PRN (18:13)
[2019-05-22] MEDS: HUMALOG SUBQ SCH ×2 (18:14→20:50)
[2019-05-22] MEDS: ASPIRIN EC PO SCH (18:15)
[2019-05-22] MEDS: CRESTOR PO SCH (19:36)
--- NOTE | 2019-05-22 20:26 | NEPHROLOGY CONSULTATION ---
DATE: 05/22/2019 REASON FOR CONSULTATION: ESRD, medical management. CONSULTING PROVIDER: Lea Curran. HISTORY OF PRESENT ILLNESS: Ms. Nelson is a 48-year-old white female who is well known to us. She was very recently in the hospital in [facility] and also has been to [facility] in the interim where she was treated for atrial fibrillation. She states ultimately her beta- anirudh dose was increased. She was treated with a different medication that she cannot name and states it caused tremor. She fell asleep in her wheelchair and next found herself on the floor. Injury to the forehead and elbow. Because of this, she was brought to the emergency room. PAST MEDICAL HISTORY: CKD 5D on hemodialysis every Wednesday, Wednesday, Wednesday. Frequently complicated by volume overload and hyperkalemia. She has obesity, obstructive sleep apnea, diabetes, hypertension, coronary disease. HOME MEDICATIONS: Include carvedilol, gabapentin, pantoprazole, ropinirole, venlafaxine, aspirin, albuterol, insulin, glipizide, quetiapine, sevelamer, rosuvastatin, cariprazine, metoprolol. ALLERGIES: Carvedilol, caffeine, promethazine, hydralazine, baclofen. SOCIAL HISTORY: No alcohol or tobacco. FAMILY HISTORY: Noncontributory. REVIEW OF SYSTEMS: Noncontributory. PHYSICAL EXAMINATION: Vital Signs: Blood pressure 110/50, heart rate 74, respirations 73, afebrile. General: Obese white female sitting up no distress. Skin is warm and dry. Abrasion and hematoma on the right forehead and right elbow. Pupils are equal. Conjunctivae are pink. Neck: Neck veins are not distended. Trachea is midline. Heart: Regular. No murmurs. Lungs: Equal. No crackles or wheezes. Abdomen: Obese, soft, nontender. Bowel sounds are present. Extremities: 2+ edema. No clubbing or cyanosis. IMPRESSION: Chronic kidney disease 5D. Complicated by hyperkalemia. She will have her routine dialysis today using a 2 potassium bath. Goal of 3-4 L ultrafiltration as tolerated. Regarding her fall, I would recommend that we begin to limit her exposure to a gabapentinoids. This medication has been withdrawn entirely and I support this. Also her quetiapine was discontinued. Observe. Repeat labs in the morning. cc: Dany Fofana MD MTDD
[2019-05-22] MEDS: LOPRESSOR PO SCH (20:49)
[2019-05-22] MEDS: BRILINTA PO SCH (20:50)
[2019-05-23] MEDS: TYLENOL PO PRN ×3 (02:56→17:52)
[2019-05-23 05:23] LABS: ALLEN TEST YES; BE -0.5 mmoll (-3.0-3.0); BLOOD TYPE ARTERIAL; HCO3-(ACT) 24.5 mmoll (20.0-26.0); METHB 0.2 % (0.0-1.5); O2(CT) 13.9 mL/dL (15.0-23.0); O2HB 96.6 % (95.0-99.0); PCO2(98.6) 49 mmHg (35-45); PO2(98.6) 114 mmHg (60-100); SAMPLE BLOOD; SAO2 97.9 % (95.0-100.0); THB 10.1 g/dL (11.5-17.4); pH(98.6) 7.33 (7.35-7.45)
[2019-05-23 05:24] LABS: MODALITY CANNULA
[2019-05-23 05:47] LABS: ALBUMIN 3.2 g/dL (3.5-5.0); CALCIUM 7.8 mg/dL (8.8-10.2); CREATININE 5.3 mg/dL (0.5-0.9); PHOSPHORUS 5.9 mg/dL (2.7-4.5); POTASSIUM 4.7 mmol/L (3.5-5.1)
[2019-05-23 05:59] LABS: BASO# 0.04 X1000 (0.0-0.2); BASO% 0.5 % (0.0-0.8); EOS# 0.46 X1000 (0.0-0.7); EOS% 6.2 % (0.0-10.0); HEMATOCRIT 32.6 % (37.0-47.0); HEMOGLOBIN 9.6 g/dL (12.0-16.0); IMM GRAN# 0.02 X1000 (0.0-0.04); IMM GRAN% 0.3 % (0.0-0.5); LYMPH% 21.4 % (20.5-51.1); MCH 28.7 PG (27-31); MCHC 29.4 g/dL (33-37); MCV 97.3 FL (81-99); MONO# 0.55 X1000 (0.11-0.59); MONO% 7.4 % (1.7-9.3); MPV 9.8 FL (7.4-10.4); NEUT# 4.79 X1000 (1.4-6.5); NEUT% 64.2 % (42.2-75.2); PLT 219 X1000 (130-400); RBC 3.35 XMIL (4.2-5.4); RDW 15.5 % (11.5-14.5); WBC 7.46 X1000 (4.8-10.8)
[2019-05-23] MEDS: HUMALOG SUBQ SCH ×5 (06:31→21:56)
[2019-05-23] MEDS: LOPRESSOR PO SCH ×2 (10:47→20:31)
[2019-05-23] MEDS: PROTONIX PO SCH (10:47)
[2019-05-23] MEDS: ASPIRIN EC PO SCH (10:47)
[2019-05-23] MEDS: BRILINTA PO SCH ×2 (10:48→20:30)
[2019-05-23] MEDS: CRESTOR PO SCH (10:48)
[2019-05-23] MEDS ORDERED: NORCO-5 PO PRN (13:58)
--- NOTE | 2019-05-23 16:05 | Diag Imaging Result Doc PS360 ---
CT ORBIT W/O CONTRAST - 05/23/2019 INDICATION: recent fall/r/o orbital fracture COMPARISON: 01/22/2019 FINDINGS: There is no acute orbital fracture. There is an old deformity of the floor of the left orbit. Orbital contents are normal. There is significant periorbital soft tissue swelling on the right side, with also cheek and scalp swelling at the right side of the head. No drainable fluid collections. No soft tissue gas. No foreign body. IMPRESSION: Nonspecific periorbital and facial soft tissue swelling on the right side. Old deformity at the floor of the left orbit. No acute fractures. This exam was performed using automated exposure control, adjustment of mA or kV according to patient size, and/or use of iterative reconstruction technique Electronically signed by Fercho Gary 05/23/2019 4:03 PM
--- NOTE | 2019-05-23 16:44 | PROGRESS NOTE ---
DATE: 05/23/2019 SUBJECTIVE: The patient complains of a headache and swelling of her right eye. OBJECTIVE: Vital signs: Temperature 97.9 degrees, blood pressure 145/54, heart rate 65, respirations 17, and 02 saturations 99% on 2 L nasal cannula. General: This is a morbidly obese female lying in bed in no acute distress. Heart: S1, S2 normal. Regular rate and rhythm. Lungs: Clear to auscultation bilaterally. Abdomen: Positive bowel sounds. Soft, nontender, and nondistended. Extremities: The patient has bilateral lower extremity bilateral BKA. Neurologic: The patient is alert and oriented x3. LABORATORY: White blood cell count 7.4, hemoglobin 9.6, hematocrit 32, and platelets 219,000. Sodium 132, potassium 4.7, chloride 95, CO2 23, BUN 46, creatinine 5.3, glucose 214, and albumin 3.2. IMAGING: CT of the orbits shows nonspecific periorbital and facial soft tissue swelling on the right side. No acute fractures. ASSESSMENT AND PLAN: 1. Large right frontal scalp hematoma status post fall. Continue to monitor closely for improvement. 2. Mechanical fall. Aware. We will consult with physical therapy. The patient may require home health upon discharge. 3. Insulin-dependent diabetes mellitus. Continue on the current insulin regimen. 4. Chronic kidney disease stage 5D. Management as per Dr. Fofana. 5. Coronary artery disease with a history of multiple stents. Continue on the current cardiac regimen to include Brilinta, metoprolol, and statin therapy. 6. Morbid obesity. Aware. 7. Severe right periorbital swelling s/p fall. Monitor closely. No evidence of an orbital fracture on CT. 8. Disposition. Hopefully, the patient will be stable for discharge home tomorrow. cc: Maira Gupta MD MTDD
--- NOTE | 2019-05-23 18:54 | PROVIDER PROGRESS NOTE ---
Progress Note Subjective: Voices being sore from fall yesterday. No uremic complaints. Objective: Temperature 98.0, pulse 64, respirations 18, blood pressure 151/60, O2 sat 100% on 2 L nasal cannula. General: obese white female lying in bed in no distress. HEENT: firm Hematoma on the right front occipital region with scant amount of bright red blood, Pupils equal and reactive. Right eye hematoma purple in color. Mucous membranes moist. Skin: warm and dry. Dried blood to right occipital region. Neck: supple, 6 cm JVD observed in upright position, trachea midline. Cardiovascular: Distant. S1S2, regular rate and rhythm. No murmur gallop noted. Respiratory: lungs clear with equal entry posteriorly Abdomen: obese, soft, nontender and nondistended. Bowel sounds active. : not inspected Extremities: bilateral above the knee amputation. No clubbing, cyanosis, or edema to BUE. Neurological: alert and oriented to person, place, and time. Labs: WBC 7.46, hemoglobin 9.6, hematocrit 32.6, platelet count to 19, sodium 132, potassium 4.7, chloride 95, carbon dioxide 23, BUN 46, creatinine 5.3. Intake zero, output 2841. Assessment and plan: Chronic kidney disease stage 5D. She had her routine hemodialysis yesterday with a 2.8 L ultrafiltration. No changes. Blood pressure. Stable. Fluid volume. Euvolemic on exam. Anemia. Stable. Electrolytes and acid base balance. Improved with hemodialysis yesterday. Nutrition. Adequate. Medication review. Protonix and Lantus scheduled to start today. Refused ASA and Crestor. Yaniv WOODS. tenzin
[2019-05-23] MEDS: PERCOCET-5 PO PRN (20:30)
[2019-05-23] MEDS ORDERED: LANTUS INSULIN SUBQ SCH (21:00)
[2019-05-24] MEDS ORDERED: MORPHINE IV ONE (00:21)
[2019-05-24 05:23] LABS: HEMATOCRIT 31.7 % (37.0-47.0); HEMOGLOBIN 9.5 g/dL (12.0-16.0); MCV 96.6 FL (81-99); MPV 10.3 FL (7.4-10.4); RBC 3.28 XMIL (4.2-5.4); RDW 15.6 % (11.5-14.5); WBC 6.95 X1000 (4.8-10.8)
[2019-05-24 05:51] LABS: ALBUMIN 3.4 g/dL (3.5-5.0); CALCIUM 7.9 mg/dL (8.8-10.2); CREATININE 6.8 mg/dL (0.5-0.9); PHOSPHORUS 5.9 mg/dL (2.7-4.5); POTASSIUM 5.2 mmol/L (3.5-5.1)
[2019-05-24] MEDS: PERCOCET-5 PO PRN ×2 (06:16→12:05)
[2019-05-24] MEDS: HUMALOG SUBQ SCH ×2 (06:18→11:58)
[2019-05-24] MEDS ORDERED: TIGHT: 0.2 ML/HR FOR DIALYSIS MISC PRN (06:18)
[2019-05-24] MEDS ORDERED: NS 2,000 ML MISC PRN (06:18)
[2019-05-24] MEDS ORDERED: HEPARIN IV PRN (06:18)
[2019-05-24] MEDS: BRILINTA PO SCH (11:55)
[2019-05-24] MEDS: PROTONIX PO SCH (11:55)
[2019-05-24] MEDS: ASPIRIN EC PO SCH (11:55)
[2019-05-24] MEDS: CRESTOR PO SCH (11:55)
[2019-05-24] MEDS: LOPRESSOR PO SCH (12:00)
[2019-05-24 12:14] VITALS: BP 123/62
--- NOTE | 2019-05-24 14:20 | PROVIDER PROGRESS NOTE ---
Progress Note Subjective: Pt voices feeling sore from her neck up to her frontal skull bone. Objective: Temperature 97.4, pulse 65, respirations 18, blood pressure 160/60, 02 sat 100% on 2 L nasal cannula. General: obese white female lying in bed in no distress. HEENT: firm Hematoma on the right front occipital region with scant amount of dried blood, Pupils equal and reactive. Right eye hematoma purple in color, swollen shut, left eye now has Trace edema and purple discoloration. Tender to touch. Mucous membranes moist. Skin: warm and dry. Dried blood to right frontal skull region. Neck: supple, 6 cm JVD observed in upright position, trachea midline. Cardiovascular: Distant. S1S2, regular rate and rhythm. No murmur gallop noted. Right upper chest wall vas-cath. Respiratory: lungs clear with equal entry posteriorly Abdomen: obese, soft, nontender and nondistended. Bowel sounds active. : not inspected Extremities: bilateral above the knee amputation. No clubbing, cyanosis, or edema to BUE. Neurological: alert and oriented to person, place, and time. Labs: WBC 6.95, hemoglobin 9.5, hematocrit 31.7, platelet count 210, sodium 134, potassium 5.2, chloride 97, carbon dioxide 21, BUN 62, creatinine 6.8, albumin 3.4. Impression: Chronic kidney disease stage 5D. She Will have her routine hemodialysis treatment with a 2K bath and an attempted ultrafiltration to last post Dialysis weight. Blood pressure. Stable. Fluid volume. Euvolemic on exam. Anemia. Stable. Electrolytes and acid base balance. Hyperkalemia is still marginally present. Correction with hemodialysis. Nutrition. Adequate. Medication review. Oxycodone started yesterday. One dose of morphine given.
--- NOTE | 2019-05-31 08:56 | DISCHARGE SUMMARY ---
ADMISSION DATE: 05/22/2019 DISCHARGE DATE: 05/24/2019 FINAL DISCHARGE DIAGNOSES: 1. Large right frontal scalp hematoma status post fall. 2. Right periorbital swelling status post fall. 3. Mechanical fall. 4. Insulin-dependent diabetes mellitus. 5. Morbid obesity. 6. Chronic kidney disease stage 5D. 7. Coronary artery disease with a history of multiple stents. IMAGIN. CT of the head and cervical spine performed on 05/22/2019 which revealed a large right frontal scalp hematoma. No acute intracranial pathology. No evidence of fracture. 2. Forearm x-ray which revealed a superficial soft tissue contusion. 3. Chest x-ray which revealed critically low lung volumes. 4. CT of the orbits without contrast which revealed nonspecific periorbital and facial soft tissue swelling on the right side. No acute fractures. HOSPITAL COURSE: Ms. Nelson is a 48-year-old female with a history of multiple medical problems including chronic kidney disease stage 5D, on hemodialysis, who presented to the ER after falling out of her wheelchair. When the patient fell out of the wheelchair, she hit the right side of her head and face, resulting in extensive bruising. Upon arrival to the ER, the patient underwent a head and cervical spine CT that revealed a large right frontal scalp hematoma but no evidence of acute intracranial pathology or fracture. The patient was admitted to the hospitalist service and nephrology was consulted to provide dialysis support. The patient improved clinically. A CT of her orbits revealed no evidence of fracture. The case was discussed with the patient and I recommended that the patient follow up with an literacy consultant to be sure that she would not have any visual side effects from the fall. An appointment was made for the patient to follow up with Dr. Venu Jesus on 05/25/2019 at 3 p.m. DISCHARGE MEDICATIONS: 1. Percocet 7.5/325 one tablet oral every 6 hours p.r.n. for pain. 2. Protonix 40 mg p.o. daily. 3. Requip 3 mg oral 3 times a day. 4. Aspirin 81 mg p.o. daily. 5. Albuterol 90 mcg inhaled p.r.n. 6. Lantus 10 units subcutaneous daily. 7. Glucotrol 2.5 mg oral daily. 8. Renvela 4 tablets oral before meals. 9. Lovastatin 10 mg oral daily. 10. Brilinta 90 mg oral twice a day. 11. Metoprolol 50 mg oral twice a day. 12. Vraylar 3 mg oral daily. DISCHARGE DIET: An 1800, ADA, renal diet. ACTIVITY: As tolerated. FOLLOWUP INSTRUCTIONS: The patient is scheduled to follow up with Dr. Venu Jesus on 05/25/2019 at 3 p.m. for an eye examination. The patient has also been advised to continue with her routine scheduled dialysis sessions throughout the week. cc: Maira Gupta MD
== END 2019-05-24 17:33 | disposition home health service (06) | DRG 604 ==
LOC: SUPCPDRO → ED 06:23 → EDIPHOLD 13:30 → SUATTDRO 13:30 → 1N 17:16
PROVIDERS: ATTEND Internal Medicine